=== PATIENT | female | born 1950 | race Caucasian/White ===

== ENCOUNTER → 2023-07-26 | Outpatient (CLI) | payer MEDICARE, BC, SELFPAY ==
--- NOTE | 2023-07-26 14:24 | RAD_ITS ---
INDICATION: PAIN EXAMINATION/TECHNIQUE: X-RAY - XR Pelvis 1 or 2 Views COMPARISON: No relevant prior comparison study available FINDINGS: PELVIC BONES: No displaced fracture, destructive or sclerotic lesions. Note that overlapping bowel shadows may however obscure fine detail. There are degenerative changes of the sacroiliac joints. No widening of the pubic symphysis. 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 There are extensive degenerative changes of the left hip characterized by joint space narrowing, subchondral sclerosis and marginal osteophytes. SOFT TISSUES: No soft tissue swelling or gas. RAD/Pelvis 1 or 2 Views IMPRESSION: Degenerative changes. Electronically Signed: Maria Elena Tyler MD at 9:59 EDT ,
[2023-07-26 17:35] LABS: Absolute Lymphocyte Count 1.72 X10^3/uL (0.83-4.51); Absolute Neutrophil Count 4.9 X10^3/uL (2.0-7.7); Basophil# 0.03 X10^3/uL; Basophil% 0.4 % (0-1); Eosinophils% 1.3 % (0-5); Hematocrit 39.9 % (37-47); Hemoglobin 12.5 g/dL (12.0-15.0); Lymphocyte # 1.72 X10^3/ul (0.83-4.51); Lymphocyte % 23.2 % (19-41); Mean Corp Hgb Conc 31.3 g/dL (32-36); Mean Corpuscular Hgb 29.3 pg (27.0-32.0); Mean Corpuscular Volume 93.4 fL (81-99); Mean Platelet Vol. 11.2 fl (6.2-12.0); Monocyte# 0.64 X10^3/uL; Monocyte% 8.6 % (0-10); NRBC Flagged by Analyzer 0 % (0-5); Neutrophil % 66.1 % (47-70); Platelet Count 246 K/mm3 (150-450); RBC Distribution Width CV 13.2 % (11.6-14.6); Red Blood Count 4.27 M/mm3 (4.2-5.4); White Blood Count 7.4 K/mm3 (4.4-11.0)
[2023-07-26 17:54] LABS: Erythrocyte Sedimentation Rate 24 mm/hr (0-30)
[2023-07-26 18:03] LABS: AST(SGOT) 18 U/L (15-37); Alanine Aminotransfer ALT/SGPT 24 U/L (13-56); Albumin, Serum 3.7 g/dL (3.2-5.0); Alkaline Phosphatase 97 U/L (45-117); Anion Gap 6 (5-15); BUN 35 mg/dL (7-18); BUN/Creat Ratio 35.8 RATIO (10-20); CRP < 2.90 mg/L (0.0-3.0); Calcium,Total 9.7 mg/dL (8.5-10.1); Chloride 109 mmol/L (98-107); Creatinine, Serum 0.98 mg/dL (0.55-1.02); EST Glomerular Filtration Rate 59 mL/min (>60); Est Glom Filt Rate - Afr Amer 71 mL/min (>60); Globulin 3.8 g/dL (2.2-4.2); Glucose 88 mg/dL (74-106); Potassium 3.7 mmol/L (3.5-5.1); Protein, Total 7.5 g/dL (6.4-8.2); Rheumatoid Factor < 10.0 IU/mL (<15); Sodium Level 142 mmol/L (136-145)
[2023-07-26 18:29] LABS: Hepatitis B Surface Antibody Non-Reactive; Hepatitis B Surface Antigen Non-Reactive (Nonreactive); Hepatitis C Antibody Non-Reactive (Nonreactive)
[2023-07-29 12:08] LABS: CCP IgG Antibodies 2 units (0-19); SJOGREN'S Anti-SS-A test < 0.2 AI (0.0-0.9); SJOGREN'S Anti-SS-B test < 0.2 AI (0.0-0.9)
== END | disposition home or self-care (01) ==
PROVIDERS: PCP Family Medicine; Referring Provider Internal Medicine Rheumatology; Visit Provider Internal Medicine Rheumatology
DX: M06.4 Inflammatory polyarthropathy (principal); M19.041 Primary osteoarthritis, right hand; M17.0 Bilateral primary osteoarthritis of knee; M65.332 Trigger finger, left middle finger
CPT/HCPCS: 36415; 72170; 80053; 85025; 85652; 86140; 86200; 86235; 86431; 86706; 86803; 87340

== ENCOUNTER → 2023-10-16 | Outpatient (CLI) | payer MEDICARE, BC, SELFPAY ==
[2023-10-16 17:58] LABS: Absolute Lymphocyte Count 1.82 X10^3/uL (0.83-4.51); Absolute Neutrophil Count 5.5 X10^3/uL (2.0-7.7); Basophil# 0.03 X10^3/uL; Basophil% 0.4 % (0-1); Eosinophil# 0.08 X10^3/uL; Hematocrit 36.9 % (37-47); Lymphocyte # 1.82 X10^3/ul (0.83-4.51); Lymphocyte % 21.9 % (19-41); Mean Corp Hgb Conc 32.5 g/dL (32-36); Mean Corpuscular Hgb 30.6 pg (27.0-32.0); Mean Corpuscular Volume 94.1 fL (81-99); Mean Platelet Vol. 10.8 fl (6.2-12.0); Monocyte# 0.83 X10^3/uL; NRBC Flagged by Analyzer 0 % (0-5); Neutrophil # 5.53 X10^3/uL (2.7-7.7); Neutrophil % 66.3 % (47-70); Platelet Count 256 K/mm3 (150-450); RBC Distribution Width CV 14.4 % (11.6-14.6); Red Blood Count 3.92 M/mm3 (4.2-5.4); White Blood Count 8.3 K/mm3 (4.4-11.0)
[2023-10-16 17:59] LABS: AST(SGOT) 26 U/L (15-37); Alanine Aminotransfer ALT/SGPT 29 U/L (13-56); Albumin, Serum 3.5 g/dL (3.2-5.0); Alkaline Phosphatase 96 U/L (45-117); Anion Gap 7 (5-15); BUN 44 mg/dL (7-18); BUN/Creat Ratio 35.8 RATIO (10-20); Calcium,Total 9.3 mg/dL (8.5-10.1); Chloride 106 mmol/L (98-107); Creatinine, Serum 1.23 mg/dL (0.55-1.02); EST Glomerular Filtration Rate 45 mL/min (>60); Est Glom Filt Rate - Afr Amer 55 mL/min (>60); Globulin 3.6 g/dL (2.2-4.2); Glucose 94 mg/dL (74-106); Protein, Total 7.1 g/dL (6.4-8.2); Sodium Level 139 mmol/L (136-145)
== END | disposition home or self-care (01) ==
PROVIDERS: PCP Family Medicine; Referring Provider Internal Medicine Rheumatology; Visit Provider Internal Medicine Rheumatology
DX: M06.4 Inflammatory polyarthropathy (principal); M17.0 Bilateral primary osteoarthritis of knee; M19.041 Primary osteoarthritis, right hand; Z79.899 Other long term (current) drug therapy
CPT/HCPCS: 36415; 80053; 85025

== ENCOUNTER → 2023-12-04 | Outpatient (CLI) | payer MEDICARE, BC, SELFPAY ==
[2023-12-04 17:40] LABS: Absolute Lymphocyte Count 1.68 X10^3/uL (0.83-4.51); Absolute Neutrophil Count 5.5 X10^3/uL (2.0-7.7); Basophil# 0.05 X10^3/uL; Basophil% 0.6 % (0-1); Eosinophil# 0.27 X10^3/uL; Eosinophils% 3.2 % (0-5); Hematocrit 37.2 % (37-47); Hemoglobin 11.7 g/dL (12.0-15.0); Lymphocyte # 1.68 X10^3/ul (0.83-4.51); Lymphocyte % 20.2 % (19-41); Mean Corp Hgb Conc 31.5 g/dL (32-36); Mean Corpuscular Hgb 29.8 pg (27.0-32.0); Mean Corpuscular Volume 94.9 fL (81-99); Monocyte# 0.82 X10^3/uL; Monocyte% 9.9 % (0-10); NRBC Flagged by Analyzer 0 % (0-5); Neutrophil # 5.46 X10^3/uL (2.7-7.7); Neutrophil % 65.6 % (47-70); Platelet Count 249 K/mm3 (150-450); RBC Distribution Width CV 13.6 % (11.6-14.6); RBC Distribution Width SD 47.7 fl (35.1-43.9); Red Blood Count 3.92 M/mm3 (4.2-5.4); White Blood Count 8.3 K/mm3 (4.4-11.0)
[2023-12-04 18:23] LABS: AST(SGOT) 20 U/L (15-37); Alanine Aminotransfer ALT/SGPT 23 U/L (13-56); Albumin, Serum 3.5 g/dL (3.2-5.0); Alkaline Phosphatase 128 U/L (45-117); Anion Gap 7 (5-15); BUN 33 mg/dL (7-18); BUN/Creat Ratio 34.7 RATIO (10-20); Calcium,Total 8.9 mg/dL (8.5-10.1); Chloride 109 mmol/L (98-107); Creatinine, Serum 0.95 mg/dL (0.55-1.02); EST Glomerular Filtration Rate 61 mL/min (>60); Est Glom Filt Rate - Afr Amer 74 mL/min (>60); Globulin 3.4 g/dL (2.2-4.2); Glucose 95 mg/dL (74-106); Potassium 4.2 mmol/L (3.5-5.1); Protein, Total 6.9 g/dL (6.4-8.2); Sodium Level 140 mmol/L (136-145)
--- OUTSIDE RECORDS SUMMARY | 2023-12-04 22:47 | XMS RPT_ITS | CCD ---
Author Name Unknown Address [id number] [place] [address] Organization [facility] Care Team Providers Care Statistics Professor Name Role Phone No, Physician Unavailable Unavailable Durairaj, Monse Unavailable Unavailable Durairaj, Monse Unavailable Unavailable Gardilcic, Stjepan Unavailable Unavailable Gardilcic, Stjepan Unavailable Unavailable Gardilcic, Stjepan Unavailable Unavailable Gardilcic, Stjepan Unavailable Unavailable Gardilcic, Stjepan Unavailable Unavailable Gardilcic, Stjepan Unavailable Unavailable Gardilcic, Stjepan Unavailable Unavailable Gardilcic, Stjepan Unavailable Unavailable Gardilcic, Stjepan Unavailable Unavailable Gardilcic, Stjepan Unavailable Unavailable Gardilcic, Stjepan Unavailable Unavailable Gardilcic, Stjepan Unavailable Unavailable Anjana Pride Unavailable Gardilcic, Stjepan Unavailable [phone] KelseyFerny N. Unavailable Sharan Padilla Unavailable Driss Olivia Unavailable Anjana Pride Primary Care Provider Gardilcic, Stjepan Unavailable Kelsey, Ferny N. Unavailable Sharan Padilla Unavailable Driss Olivia Unavailable Sharan Padilla Unavailable Derek Burns Unavailable Merline Howard Unavailable Unavailable HAYLIE GARCIA Attending Unavailable SHANNEN, ANJANA JARA Primary Care Unavailab le DEREK BURNS Referring Unavailab le STENFORREST, ANJANA JARA Primary Care Unavailab le Merline Howard Unavailable Unavailable Stenforrest, Anjana Unavailable Unavailable Stenforrest, Anjana Mason Unavailable Unavailable Hemant Laughlin Unavailable Unavailable Stencel, Anjana Unavailable Unavailable Unavailable Primary Care Provider Unavailabl e Shannen, Anjana Jara Primary Care Provider LaAnatolyclement Unavailable [phone] SongoneilSharanRaj Unavailable Driss Olivia Unavailable Derek Burns Unavailable Merline Howard Unavailable Unavailable Holly Jose Unavailable Unavailable Stenforrest, Anjana Mason Unavailable [phone] Unavailable Unavailable Anjana Pride Unavailable Winston Cain Unavailable Unavailable Juarez, Alejandra Fink Unavailable Jennifer Castillo Unavailable Unavailable Unavailable Unavailable SHANNEN, ANJANA JARA Primary Care Unavailab le STENCEL, ANJANA JARA Referring Unavailab le STENCEL, ANJANA JARA Attending Unavailab le STENCEL, ANJANA JARA Attending Unavailab le STENCEL, ANJANA JARA Primary Care Unavailab le STENCEL, ANJANA JARA Referring Unavailab le STENCEL, ANJANA JARA Primary Care Unavailab le Wood, MsRaj Castro Referring Unav ailable Wood, Ms. Alejandra Castro Attending Unav ailable Stencel, Anjana Jara Primary Care Unavailab le Kamenik, Ms. Winston Hodges Attending Ashley Dubois, Dr. Anjana Jordan Attending Unava ilable Stencel, Anjana Jara Primary Care Unavailab le Wood, Ms. Alejandra Castro Attending Unav ailable Stencel, Anjana Jara Primary Care Unavailab le Stencel, Anjana Jara Attending Unavailab le Stencel, Anjana Jara Referring Unavailab le Stencel, Anjana Jara Primary Care Unavailab le Stencel, Anjana Jara Primary Care Unavailab le JonathanJennifer Attending Unavailab le Vesta Vaughn Attending Unavailable Stencel, Anjana Jara Primary Care Unavailab le Kamenik, Ms. Winston Hodges Attending Ashley Pride, Anjana Jara Primary Care Unavailab le StenAnjana shah MD Primary Care Provider [phone] Anjana Pride MD Unavailable SHANNEN, ANJANA JARA Primary Care Unavailab le SYSTEM, PROVIDER NOT IN Referring Unavaila ble SYSTEM, PROVIDER NOT IN Attending Unavaila ble Stencel Anjana GOLDBERG Primary Care Provider La GOLDBERG, Rob Unavailable Ferny Cole MD Unavailable Sharan Padilla MD Unavailable Driss Olivia MD Unavailable [phone] Derek Burns MD Unavailable MILAGROS BRIAN Attending Unavailable STENCEL, ANJANA JARA Primary Care Unavailab le MILAGROS BRIAN Referring Unavailable STENCEL, ANJANA JARA Primary Care Unavailab le SYSTEM, PROVIDER NOT IN Referring Unavaila ble SYSTEM, PROVIDER NOT IN Attending Unavaila ble ANJANA PRIDE Primary Care Unavailable STENCEL ANJANA GOLDBERG Primary Care Physician ANJANA PRIDE Attending Unavailable STENCEL, ANJANA Mason Referring Unavailable STENCEL, ANJANA Mason Primary Care Unavailable STENCEL, ANJANA Mason Attending Unavailable STENCEL, ANJANA Mason Primary Care Unavailable STENCEL, ANJANA Mason Attending Unavailable STENCEL, ANJANA Mason Primary Care Unavailable STENCEL, ANJANA Mason Attending Unavailable STENCEL, ANJANA Mason Primary Care Unavailable STENCEL, ANJANA JARA Primary Care Unavailab le ZAHIDA DIEHL, SHAY Attending Unavailable MILAGROS BRIAN Referring Unavailable STENCEL, ANJANA JARA Primary Care Unavailab le MILAGROS BRIAN Admitting Unavailable STENCEL, ANJANA JARA Primary Care Unavailab le MILAGROS BRIAN Attending Unavailable STENCEL, ANJANA JARA Primary Care Unavailab le ZAHIDA DIEHL, SHAY Admitting Unavailable ZAHIDA JRRaj, SHAY Referring Unavailable STENCEL, ANJANA Mason Primary Care Unavailable LISE PEDRAZA Referring Unavailable IFTIKHAR HOLGUIN Referring Unavailable STENCEL, ANJANA Mason Primary Care Unavailable IFTIKHAR HOLGUIN Referring Unavailable STENCEL, ANJANA Mason Primary Care Unavailable MARIBEL HENSON Attending Unavailable IFTIKHAR HOLGUIN Referring Unavailable STENCEL, ANJANA Mason Primary Care Unavailable CHELSIEIFTIKHAR COLBY Referring Unavailable STENCEL, ANJANA Mason Primary Care Unavailable SHAY TEGAUE Referring Unavailable STENCEL, ANJANA Isabella Primary Care Unavailable CHELSIEIFTIKHAR Referring Unavailable STENCEL, ANJANA Isabella Primary Care Unavailable CHELSIEIFTIKHAR COLBY Referring Unavailable STENCEL, ANJANA Isabella Primary Care Unavailable IFTIKHAR HOLGUIN Referring Unavailable STENCEL, ANJANA Isabella Primary Care Unavailable CHELSIEIFTIKHAR Referring Unavailable STENCEL, ANJANA Isabella Primary Care Unavailable CHELSIE GOLDBERG, DR IFTIKHAR Naranjo Attending UnavailANJANA Kilpatrick MD Primary [facility] Unavailable CHELSIE GOLDBERG, DR IFTIKAHR Naranjo Attending Unavailab viral PRIDE MD, ANJANA Primary [facility] Unavailable Allergies Allergy Classification Reported Allergen(s) Allergy Type Date of Onset Reaction(s) Facility Angiotensin Converting Enzyme (DANIELLE) Inhibitors (2 sources) Lisinopril; Translations: [lisinopril] Drug Allergy Cough [facility] [place] [place] Work Phone: Macrolides (antibiotic) (4 sources) Clarithromycin; Translations: [Biaxin] Drug Allergy Hives [facility] [place] [place] Work Phone: NSAIDs (2 sources) meloxicam; Translations: [meloxicam] Drug Allergy Diarrhea [facility] [place] [place] Work Phone: Sulfamethoxazole / Trimethoprim (2 sources) Sulfamethoxazole / Trimethoprim; Translations: [Bactrim] [facility] [place] [place] Work Phone: Sulfonamides (antibiotic) (2 sources) Sulfonamides (Antibiotic); Translations: [Sulfa Drugs] Drug Allergy Hives [facility] [place] [place] Work Phone: (20 sources) lisinopril; Translations: [Unknown] Drug Allergy 07-01-20 18 Hives, Cough, Other (See Comments) [facility] Medications Current Medications Medication Drug Class(es) Dates Sig (Normalized) Sig (Original) amLODIPine 5 mg oral tablet (20 sources) Dihydropyridine Calcium Channel Aubrie Start: 06-20-2018 End: 04-18-2024 take 1 tablet by mouth once daily amLODIPine (Norvasc) 5 mg tablet Indications: Routine general medical examination at a health care facility Take 1 tablet (5 mg) by mouth once daily. 90 tablet 3 04/19/2023 04/18/2024 Active aspirin 325 mg delayed release oral tablet (20 sources) Platelet Aggregation Inhibitor, Nonsteroidal Anti-inflammatory Drug Start: 07-08-2019 End: 08-08-2019 take 1 tablet by mouth twice daily aspirin 325 MG EC tablet Take 1 (one) tablet (325 mg total) by mouth 2 (two) times a day . 60 tablet 0 07/09/2019 08/08/2019 Active Completed/Discontinued Medications Medication Drug Class(es) Dates Sig (Normalized) Sig (Original) acetaminophen 325 mg oral tablet (11 sources) Start: 07-09-2019 End: 07-19-2019 take 2 tablets by mouth every four hours acetaminophen (TYLENOL) 325 MG tablet Take 2 (two) tablets (650 mg total) by mouth every 4 (four) hours for 10 days . 60 tablet 0 07/09/2019 07/19/2019 Problems Active Problems Problem Classification Problem Date Documented Da te Episodic/Chronic Calculus of urinary tract (18 sources) History of calculus of kidney; Translations: [Personal history of urinary calculi] Episodic Chronic obstructive pulmonary disease and bronchiectasis (20 sources) Chronic obstructive lung disease; Translations: [Chronic airway obstruction, not elsewhere classified] Onset: 3 Resolved: 3 02-26-2023 Chronic Disorders of lipid metabolism (20 sources) Hyperlipidemia; Translations: [Other and unspecified hyperlipidemia] Onset: 9 06-12-2019 Chronic Esophageal disorders (20 sources) Gastroesophageal reflux disease without esophagitis; Translations: [Esophageal reflux] Onset: 3 02-26-2023 Chronic Essential hypertension (20 sources) Hypertensive disorder; Translations: [Unspecified essential hypertension] Onset: 9 06-12-2019 Chronic Genitourinary symptoms and ill-defined conditions (3 sources) Incontinence; Translations: [Mixed incontinence] Onset: 4 10-17-2023 Chronic Headache; including migraine (1 source) Headache; including migraine; Translations: [Headache, unspecified] Onset: 2 Immunizations and screening for infectious disease (15 sources) Patient encounter status; Translations: [Other specified vaccination] 11-06-2021 Episodic Osteoarthritis (20 sources) Osteoarthritis of hip; Translations: [Osteoarthritis] Onset: 9 Resolved: 3 Chronic Other acquired deformities (1 source) Spondylolisthesis, lumbar region; Translations: [Spondylolisthesis, lumbar region] Onset: 2 Episodic Other connective tissue disease (20 sources) History of total hip arthroplasty; Translations: [Presence of right artificial hip joint] Onset: 9 07-08-2019 Chronic Other connective tissue disease (2 sources) History of repair of hip joint; Translations: [Presence of left artificial hip joint] Onset: 4 10-31-2023 Chronic Other connective tissue disease (2 sources) Presence of left artificial hip joint; Translations: [Presence of left artificial hip joint] Onset: 4 Chronic Other connective tissue disease (1 source) Pain of left calf; Translations: [Pain in left lower leg] 11-20-2023 Episodic Other connective tissue disease (4 sources) Pain of left lower leg; Translations: [Pain in left lower leg] Onset: 4 11-20-2023 Episodic Other connective tissue disease (3 sources) Pain in left lower limb; Translations: [Pain in left leg] Onset: 4 11-20-2023 Episodic Other connective tissue disease (2 sources) Pain in left foot; Translations: [Pain in left foot] Onset: 4 Episodic Other connective tissue disease (2 sources) Pain in left lower leg; Translations: [Pain in left lower leg] Onset: 4 Episodic Other connective tissue disease (1 source) Pain in left leg; Translations: [Pain in left leg] Onset: 4 Episodic Other diseases of kidney and ureters (1 source) Acquired renal cystic disease; Translations: [Acquired cyst of kidney] Episodic Other gastrointestinal disorders (1 source) Adrenal mass Chronic Other nervous system disorders (1 source) Spinal cord disease; Translations: [Myelopathy] Chronic Other nervous system disorders (3 sources) Other chronic pain; Translations: [Other chronic pain] Onset: 2 Chronic Other non-traumatic joint disorders (1 source) Pain in left knee; Translations: [Pain in left knee] Onset: 12-31-2022 Episodic Other non-traumatic joint disorders (20 sources) Arthritis of right hip; Translations: [Arthritis of right hip] Onset: 9 05-04-2019 Other nutritional; endocrine; and metabolic disorders (11 sources) Body mass index 30+ - obesity; Translations: [Body Mass Index 36.0-36.9, adult] Chronic Other nutritional; endocrine; and metabolic disorders (11 sources) Obesity; Translations: [Obesity hypoventilation syndrome] Chronic Other upper respiratory disease (4 sources) Pain in throat 11-06-2021 Episodic Past or Other Problems Problem Classification Problem Date Documented Da te Episodic/Chronic Allergic reactions (20 sources) Eczema; Translations: [Contact dermatitis and other eczema, unspecified cause] Onset: 12-31-2022 12-31-2022 Episodic Inflammation; infection of eye (except that caused by tuberculosis or sexually transmitteddisease) (2 sources) Acute conjunctivitis; Translations: [Acute conjunctivitis, unspecified] Onset: 11-20-2021 11-20-2021 Episodic Joint disorders and dislocations; trauma-related (1 source) Subluxation of L4/L5 lumbar vertebra, initial encounter; Translations: [Subluxation of L4/L5 lumbar vertebra, initial encounter] Onset: 12-01-2021 Episodic Malaise and fatigue (1 source) Other malaise; Translations: [Other malaise] Onset: 11-06-2021 Episodic Other eye disorders (1 source) Other specified disorders of eye and adnexa; Translations: [Other specified disorders of eye and adnexa] Onset: 11-20-2021 Episodic Other gastrointestinal disorders (20 sources) Mass of pancreas; Translations: [Pancreatic mass] Onset: 08-05-2018 08-05-2018 Episodic Other non-traumatic joint disorders (15 sources) Pain in left knee; Translations: [Left knee pain, unspecified chronicity] Onset: 12-01-2021 Episodic Other upper respiratory disease (1 source) Nasal congestion; Translations: [Nasal congestion] Onset: 03-14-2022 Episodic Pancreatic disorders (20 sources) Cyst of pancreas; Translations: [Cyst and pseudocyst of pancreas] Onset: 08-05-2018 12-31-2022 Episodic Spondylosis; intervertebral disc disorders; other back problems (14 sources) Chronic low back pain; Translations: [Lumbago] Onset: 08-01-2022 12-31-2022 Episodic Unclassified (1 source) Preprocedural examination done Unclassified (4 sources) Colon cancer screening declined; Translations: [Colon cancer screening declined] Unclassified (5 sources) Onset: 02-26-2023 02-26-2023 Unclassified (1 source) Finding of menstrual bleeding; Translations: [Menstruation] Results Test Name Value Interpretation Reference Range Facil ity Vital Signs Date Time Vital Sign Value Performing Clinician Faci lity 11-20-2023 11:16-0500 Body temperature 98.71 [degF] Shay Teague Jr., DPM Work Phone: [facility] 11-20-2023 11:16-0500 Diastolic blood pressure 62 mm[Hg] Shay Teague Jr., DPM Work Phone: [facility] 11-20-2023 11:16-0500 Heart rate 69 /min Shay Teague Jr., DPM Work Phone: [facility] 11-20-2023 11:16-0500 Systolic blood pressure 137 mm[Hg] Shay Teague Jr., DPM Work Phone: [facility] 10-29-2023 11:45-0500 Diastolic Blood Pressure Non-Invasive 57 mm[Hg] DR IFTIKHAR HOLGUIN MD [facility] 10-29-2023 11:45-0500 Heart rate 67 /min DR IFTIKHAR HOLGUIN MD [facility] 10-29-2023 11:45-0500 Systolic Blood Pressure Non-Invasive 123 mm[Hg] DR IFTIKHAR HOLGUIN MD [facility] 10-29-2023 10:45-0500 Diastolic Blood Pressure Non-Invasive 54 mm[Hg] DR IFTIKHAR HOLGUIN MD [facility] 10-29-2023 10:45-0500 Heart rate 72 /min DR IFTIKHAR HOLGUIN MD [facility] 10-29-2023 10:45-0500 Systolic Blood Pressure Non-Invasive 78 mm[Hg] DR IFTIKHAR HOLGUIN MD [facility] 10-29-2023 10:00-0500 Diastolic Blood Pressure Non-Invasive 67 mm[Hg] DR IFTIKHAR HOLGUIN MD [facility] 10-29-2023 10:00-0500 Heart rate 74 /min DR IFTIKHAR HOLGUIN MD [facility] 10-29-2023 10:00-0500 Respiratory rate 20 /min DR IFTIKHAR HOLGUIN MD [facility] 10-29-2023 09:45-0500 Respiratory rate 17 /min DR IFTIKHAR HOLGUIN MD [facility] 10-29-2023 09:30-0500 Respiratory rate 16 /min DR IFTIKHAR HOLGUIN MD [facility] 10-29-2023 09:05-0500 Body temperature 96.62 [degF] DR IFTIKHAR HOLGUIN MD [facility] 10-29-2023 08:55-0500 Respiratory Rate - Anes 18 br/min DR IFTIKHAR HOLGUIN MD [facility] 10-29-2023 08:50-0500 Respiratory Rate - Anes 16 br/min DR IFTIKHAR HOLGUIN MD [facility] 10-29-2023 08:45-0500 Respiratory Rate - Anes 16 br/min DR IFTIKHAR HOLGUIN MD [facility] 10-29-2023 06:20-0500 Body weight 20.43 kg/m2 DR IFTIKHAR HOLGUIN MD [facility] 10-29-2023 05:55-0500 Body height [address] IFTIKHAR HOLGUIN MD [facility] 10-29-2023 05:55-0500 Body temperature 96.98 [degF] DR IFTIKHAR HOLGUIN MD [facility] 10-29-2023 05:55-0500 Body weight 52.[address] IFTIKHAR HOLGUIN MD [facility] 10-29-2023 05:55-0500 Heart rate 79 /min DR IFTIKHAR HOLGUIN MD [facility] 10-17-2023 09:11-0500 Body height 160 cm Anjana Pride MD Work Phone: [facility] 10-17-2023 09:11-0500 Body mass index (BMI) [Ratio] 35.5 kg/m2 Anjana Pride MD Work Phone: [facility] 10-17-2023 09:11-0500 Body weight 90.9 kg Anjana Pride MD Work Phone: [facility] 10-17-2023 09:11-0500 Diastolic blood pressure 60 mm[Hg] Anjana Pride MD Work Phone: [facility] 10-17-2023 09:11-0500 Heart rate 67 /min Anjana Pride MD Work Phone: [facility] 10-17-2023 09:11-0500 SaO2% (BldA) [Mass fraction] 98 % Anjana Pride MD Work Phone: [facility] 10-17-2023 09:11-0500 Systolic blood pressure 132 mm[Hg] Anjana Pride MD Work Phone: [facility] 10-08-2023 11:43-0500 Body height [address] IFTIKHAR HOLGUIN MD [facility] 10-08-2023 11:43-0500 Body weight 90.[address] IFTIKHAR HOLGUIN MD [facility] 09-09-2023 13:31-0500 Body height 160 cm Anjana Pride MD Work Phone: [facility] 09-09-2023 13:31-0500 Body mass index (BMI) [Ratio] 36.01 kg/m2 Anjana Pride MD Work Phone: [facility] 09-09-2023 13:31-0500 Body weight 92.22 kg Anjana Pride MD Work Phone: [facility] 09-09-2023 13:31-0500 Diastolic blood pressure 60 mm[Hg] Anjana Pride MD Work Phone: [facility] 09-09-2023 13:31-0500 Heart rate 98 /min Anjana Pride MD Work Phone: [facility] 09-09-2023 13:31-0500 SaO2% (BldA) [Mass fraction] 98 % Anjana Pride MD Work Phone: [facility] 09-09-2023 13:31-0500 Systolic blood pressure 128 mm[Hg] Anjana Pride MD Work Phone: [facility] 09-04-2023 09:16-0500 Body height 160 cm Milagros Brian CNP Work Phone: [facility] 09-04-2023 09:16-0500 Body mass index (BMI) [Ratio] 35.43 kg/m2 Milagros Brian CNP Work Phone: [facility] 09-04-2023 09:16-0500 Body weight 90.72 kg Milagros Brina CNP Work Phone: [facility] 06-14-2023 14:08-0400 Body height 160.02 cm Anjana Calderoncel Work Phone: [place] [address] [place] Work Phone: 06-14-2023 14:08-0400 Body mass index (BMI) [Ratio] 36.05 kg/m2 Anjana Calderoncel Work Phone: [place] [address] [place] Work Phone: 06-14-2023 14:08-0400 Body surface area Derived from formula 1.95 m2 Anjana Calderoncel Work Phone: [address] Work Phone: 06-14-2023 14:08-0400 Body weight 92.3 kg Anjana Pride Work Phone: [address] Work Phone: 06-14-2023 14:08-0400 Diastolic blood pressure 74 mm[Hg] Anjana Calderoncel Work Phone: [place] [address] [place] Work Phone: 06-14-2023 14:08-0400 Systolic blood pressure 158 mm[Hg] Anjana Calderoncel Work Phone: [place] [address] [place] Work Phone: 02-26-2023 13:40-0400 Body height 160 cm Anjana Pride MD Work Phone: [facility] 02-26-2023 13:40-0400 Body mass index (BMI) [Ratio] 35.75 kg/m2 Anjana Pride MD Work Phone: [facility] 02-26-2023 13:40-0400 Body weight 91.54 kg Anjana Pride MD Work Phone: [facility] 02-26-2023 13:40-0400 Diastolic blood pressure 60 mm[Hg] Anjana Pride MD Work Phone: [facility] 02-26-2023 13:40-0400 Heart rate 63 /min Anjana Pride MD Work Phone: [facility] 02-26-2023 13:40-0400 SaO2% (BldA) [Mass fraction] 96 % Anjana Pride MD Work Phone: [facility] 02-26-2023 13:40-0400 Systolic blood pressure 128 mm[Hg] Anjana Pride MD Work Phone: [facility] 08-27-2022 13:55-0500 Body height 160.02 cm Anjana Pride Work Phone: [facility] Work Phone: 08-27-2022 13:55-0500 Body mass index (BMI) [Ratio] 36.69 kg/m2 Anjana Pride Work Phone: [facility] Work Phone: 08-27-2022 13:55-0500 Body surface area Derived from formula 1.96 m2 Anjana Pride Work Phone: [facility] Work Phone: 08-27-2022 13:55-0500 Body weight 93.95 kg Anjana Isabella Pride Work Phone: [facility] Work Phone: 08-27-2022 13:55-0500 Diastolic blood pressure 66 mm[Hg] Anjana Pride Work Phone: [facility] Work Phone: 08-27-2022 13:55-0500 Heart rate 64 /min Anjana Pride Work Phone: [facility] Work Phone: 08-27-2022 13:55-0500 SaO2% (BldA) [Mass fraction] 98 % Anjana Pride Work Phone: [facility] Work Phone: 08-27-2022 13:55-0500 Systolic blood pressure 132 mm[Hg] Anjana Calderoncel Work Phone: [facility] Work Phone: 08-10-2022 17:02-0500 Body height 159 cm Anjana Calderoncel Other Phone: [facility] 08-10-2022 17:02-0500 Body temperature 97.34 [degF] Anjana Calderoncel Other Phone: [facility] 08-10-2022 17:02-0500 Diastolic blood pressure 75 mm[Hg] Anjana Calderoncel Other Phone: [facility] 08-10-2022 17:02-0500 Heart rate 61 /min Anjana Calderoncel Other Phone: [facility] 08-10-2022 17:02-0500 Respiratory rate 18 /min Anjana Calderoncel Other Phone: [facility] 08-10-2022 17:02-0500 SaO2% (BldA) [Mass fraction] 95 % Anjana Calderoncel Other Phone: [facility] 08-10-2022 17:02-0500 Systolic blood pressure 123 mm[Hg] Anjana Calderoncel Other Phone: [facility] 02-22-2022 14:17-0400 Body height 160.02 cm Anjana Pride Work Phone: [facility] [employer] [facility] [facility] Work Phone: 02-22-2022 14:17-0400 Body mass index (BMI) [Ratio] 37.29 kg/m2 Anjana Calderoncel Work Phone: [facility] [employer] [facility] Work Phone: 02-22-2022 14:17-0400 Body surface area Derived from formula 1.98 m2 Anjana Calderoncel Work Phone: [facility] [employer] Work Phone: 02-22-2022 14:17-0400 Body weight 95.48 kg Anjana Mason Stencel Work Phone: [facility] Work Phone: 02-22-2022 14:17-0400 Diastolic blood pressure 68 mm[Hg] Anjana Mason Stencel Work Phone: [facility] Work Phone: 02-22-2022 14:17-0400 Heart rate 59 /min Anjana Mason Stencel Work Phone: [facility] Work Phone: 02-22-2022 14:17-0400 SaO2% (BldA) [Mass fraction] 95 % Anjana Mason Stencel Work Phone: [facility] Work Phone: 02-22-2022 14:17-0400 Systolic blood pressure 140 mm[Hg] Anjana Mason Stencel Work Phone: [facility] Work Phone: 11-20-2021 16:25-0500 Body height 161.2 cm Anjana Stencel Other Phone: [facility] 11-20-2021 16:25-0500 Body temperature 97.16 [degF] Anjana Stencel Other Phone: [facility] 11-20-2021 16:25-0500 Diastolic blood pressure 70 mm[Hg] Anjana Stencel Other Phone: [facility] 11-20-2021 16:25-0500 Heart rate 70 /min Anjana Stencel Other Phone: [facility] 11-20-2021 16:25-0500 SaO2% (BldA) [Mass fraction] 96 % Anjana Stencel Other Phone: [facility] 11-20-2021 16:25-0500 Systolic blood pressure 139 mm[Hg] Anjana Stencel Other Phone: [facility] 11-16-2021 11:02-0500 Body height 160.02 cm Anjana Calderoncel Work Phone: [facility] Work Phone: 11-16-2021 11:02-0500 Body mass index (BMI) [Ratio] 36.69 kg/m2 Anjana Calderoncel Work Phone: [facility] Work Phone: 11-16-2021 11:02-0500 Body surface area Derived from formula 1.96 m2 Anjana Calderoncel Work Phone: [facility] [facility] Work Phone: 11-16-2021 11:02-0500 Body weight 93.95 kg Anjana Pride Work Phone: [facility] Work Phone: 11-16-2021 11:02-0500 Diastolic blood pressure 68 mm[Hg] Anjana Calderoncel Work Phone: [facility] Work Phone: 11-16-2021 11:02-0500 Heart rate 63 /min Anjana Calderoncel Work Phone: [facility] Work Phone: 11-16-2021 11:02-0500 SaO2% (BldA) [Mass fraction] 97 % Anjana Calderoncel Work Phone: [facility] Work Phone: 11-16-2021 11:02-0500 Systolic blood pressure 164 mm[Hg] Anjana Calderoncel Work Phone: [facility] Work Phone: 11-06-2021 16:44-0500 Body height 161.2 cm Anjana Pride Other Phone: [facility] 11-06-2021 16:44-0500 Body temperature 97.7 [degF] Anjana Calderoncel Other Phone: [facility] 11-06-2021 16:44-0500 Diastolic blood pressure 61 mm[Hg] Anjana Calderoncel Other Phone: [facility] 11-06-2021 16:44-0500 Heart rate 60 /min Anjana Calderoncel Other Phone: [facility] 11-06-2021 16:44-0500 SaO2% (BldA) [Mass fraction] 96 % Anjana Calderoncel Other Phone: [facility] 11-06-2021 16:44-0500 Systolic blood pressure 138 mm[Hg] Anjana Calderoncel Other Phone: [facility] 08-08-2021 11:27-0500 Body height 160.02 cm Anjaan Calderoncel Work Phone: [facility] Work Phone: 08-08-2021 11:27-0500 Body mass index (BMI) [Ratio] 36.76 kg/m2 Anjana Calderoncel Work Phone: [facility] Work Phone: 08-08-2021 11:27-0500 Body surface area Derived from formula 1.96 m2 Anjana Calderoncel Work Phone: [facility] Work Phone: 08-08-2021 11:27-0500 Body temperature 96.9 [degF] Anjana Calderoncel Work Phone: [facility] Work Phone: 08-08-2021 11:27-0500 Body weight 94.12 kg Anjana Calderoncel Work Phone: [facility] Work Phone: 08-08-2021 11:27-0500 Diastolic blood pressure 68 mm[Hg] Anjana Mason Stencel Work Phone: [facility] Work Phone: 08-08-2021 11:27-0500 Heart rate 60 /min Anjana Pride Work Phone: [facility] Work Phone: 08-08-2021 11:27-0500 SaO2% (BldA) [Mass fraction] 97 % Anjana Pride Work Phone: [facility] Work Phone: 08-08-2021 11:27-0500 Systolic blood pressure 140 mm[Hg] Anjana Pride Work Phone: [facility] Work Phone: 02-05-2020 12:19-0400 BMI (Body Mass Index) 35.43 kg/m2 Hemant Laughlin [facility] Work Phone: 02-05-2020 12:19-0400 Body weight 90.72 kg Hemant Laughlin [facility] Work Phone: 02-05-2020 12:19-0400 BP Diastolic 71 mm[Hg] Hemant Laughlin [facility] Work Phone: 02-05-2020 12:19-0400 BP Systolic 142 mm[Hg] Hemant Laughlin [facility] Work Phone: 02-05-2020 12:19-0400 BSA (Body Surface Area) 1.93 m2 Hemant Laughlin [facility] Work Phone: 02-05-2020 12:19-0400 Height 160.02 cm Hemant Laughlin [facility] Work Phone: 08-07-2019 13:46-0500 BMI (Body Mass Index) 38.09 kg/m2 Anjana Pride [facility] Work Phone: 08-07-2019 13:46-0500 Body weight 97.52 kg Anjana Pride [facility] Work Phone: 08-07-2019 13:46-0500 BP Diastolic 52 mm[Hg] Anjana Pride [facility] Work Phone: 08-07-2019 13:46-0500 BP Systolic 134 mm[Hg] Anjana Pride [facility] Work Phone: 08-07-2019 13:46-0500 BSA (Body Surface Area) 1.99 m2 Anjana Pride [facility] Work Phone: 08-07-2019 13:46-0500 Height 160.02 cm [facility] Work Phone: 08-07-2019 13:46-0500 Pulse (Heart Rate) 58 /min [facility] Work Phone: 08-07-2019 13:46-0500 Pulse Oximetry 97 % [facility] Pride [facility] Work Phone: 07-27-2019 15:00-0500 BMI (Body Mass Index) 37.2 kg/m2 Derek Burns [facility] 07-27-2019 15:00-0500 Body weight 95.25 kg Derek Burns [facility] 07-27-2019 15:00-0500 Height 160 cm Derek Burns [facility] 07-24-2019 14:30-0400 Body Temperature 98.01 [degF] Mitzi Plaza [facility] 07-24-2019 14:30-0400 BP Diastolic 52 mm[Hg] Mitzi Plaza [facility] 07-24-2019 14:30-0400 BP Systolic 110 mm[Hg] M[facility]i [facility] 07-24-2019 14:30-0400 Pulse (Heart Rate) 72 /min [facility] 07-24-2019 14:30-0400 Pulse Oximetry 95 % [facility] 07-24-2019 14:30-0400 Respiratory Rate 18 /min [facility] 07-21-2019 12:50-0400 Body Temperature 96.91 [degF] Becky Gates [facility] 07-21-2019 12:50-0400 BP Diastolic 58 mm[Hg] Becky Gates [facility] 07-21-2019 12:50-0400 BP Systolic 108 mm[Hg] Beckymarcella Gates [facility] 07-21-2019 12:50-0400 Pulse (Heart Rate) 63 /min Beckymarcella Gates [facility] 07-21-2019 12:50-0400 Pulse Oximetry 98 % Beckymarcella Gates [facility] 07-21-2019 12:50-0400 Respiratory Rate 14 /min [facility] 11:59-0400 Body Temperature 97.9 [degF] [facility] 07-21-2019 11:59-0400 BP Diastolic 58 mm[Hg] [facility] 07-21-2019 11:59-0400 BP Systolic 120 mm[Hg] [facility] 07-21-2019 11:59-0400 Pulse (Heart Rate) 53 /min [facility] 07-21-2019 11:59-0400 Pulse Oximetry 97 % [facility] 07-20-2019 09:41-0400 Body Temperature 97.81 [degF] [facility] 07-20-2019 09:41-0400 BP Diastolic 77 mm[Hg] [facility] 07-20-2019 09:41-0400 BP Systolic 133 mm[Hg] [facility] 07-20-2019 09:41-0400 Pulse (Heart Rate) 78 /min [facility] 07-20-2019 09:41-0400 Pulse Oximetry 98 % [facility] 07-16-2019 10:03-0400 Body Temperature 97.5 [degF] [facility] 07-16-2019 10:03-0400 BP Diastolic 67 mm[Hg] [facility] 07-16-2019 10:03-0400 BP Systolic 132 mm[Hg] [facility] 07-16-2019 10:03-0400 Pulse (Heart Rate) 68 /min [facility] 07-16-2019 10:03-0400 Pulse Oximetry 98 % [facility] 07-15-2019 09:07-0400 Body Temperature 97.5 [degF] [facility] 07-15-2019 09:040 BP Diastolic 68 mm[Hg] [facility] Encounters Encounter Date Encounter Type Care Provider Facility Start: 12-02-2023 End: 12-02-2023 ambulatory IFTIKHAR GARCIA [facility] Start: 11-29-2023 End: 11-29-2023 ambulatory IFTIKHAR GARCIA [facility] Start: 11-27-2023 End: [facility] Start: 11-22-2023 End: 11-22-2023 ambulatory IFTIKHAR [facility] Start: 11-20-2023 End: 11-21-2023 ambulatory SHAY TEAGUE [facility] Start: 11-20-2023 End: 11-20-2023 Subsequent hospital visit by physician Armando Solis 1 [facility] Procedures Date Procedure Procedure Detail Performing Clinician Start: 12-02-2023 FOLLOW UP IN PHYSICA L THERAPY ANJANA STENCEL Start: 11-29-2023 FOLLOW UP IN PHYSICA L THERAPY ANJANA STENCEL Start: 11-27-2023 FOLLOW UP IN PHYSICA L THERAPY ANJANA STENCEL Start: 11-22-2023 FOLLOW UP IN PHYSICA L THERAPY ANJANA STENCEL Start: 11-20-2023 VASC US LOWER EXTREM ITY VENOUS DUPLEX LEFT ANJANA STENCEL Start: 11-20-2023 Dup-scan xtr veins unilateral/limited study Shay Teague DPM Work Phone: Start: 11-15-2023 FOLLOW UP IN PHYSICA L THERAPY ANJANA STENCEL Start: 11-13-2023 FOLLOW UP IN PHYSICA L THERAPY ANJANA STENCEL Start: 11-07-2023 FOLLOW UP IN PHYSICA L THERAPY ANJANA STENCEL Start: 11-06-2023 FOLLOW UP IN PHYSICA L THERAPY ANJANA STENCEL Start: 10-31-2023 AMB REFERRAL TO PHYS ICAL THERAPY ANJANA STENCEL Start: 09-09-2023 FOLLOW UP IN FAMILY MEDICINE ANJANA STENCEL Start: 09-04-2023 CBC panel - Blood by Automated count ANJANA CALDERONCEL Start: 09-04-2023 Comprehensive metabo lic 2000 panel - Serum or Plasma ANJANA PRIDE Start: 09-04-2023 Lipid panel ANJANA CARBALLO Start: 09-04-2023 Lipid 1996 panel - S kimi or Plasma Anjana Pride MD Work Phone: Start: 09-02-2023 Mammography Shay Mason shelbi Diehl, DPM Work Phone: Start: 10-01-2022 Mammography Anjana Carballo MD Work Phone: Start: 08-23-2022 Lipid 1996 panel - S kimi or Plasma Anjana Pride MD Work Phone: Start: 08-09-2020 Colonoscopy Anjana Carballo MD Work Phone: Start: 02-05-2020 CBC W Auto Different ial panel - Blood Tylerjaci Truman Start: 02-05-2020 Comprehensive metabo lic 2000 panel Hemant Laughlin Start: 02-05-2020 Lipid panel Lobito Laughlin Start: 08-07-2019 CBC W Auto Different ial panel - Blood Anjana Pride Start: 08-07-2019 Comprehensive metabo lic 2000 panel Anjana Pride Start: 08-07-2019 Lipid panel Anjana Carballo Start: 07-13-2019 Adult depression scr eening assessment Milagros Brian CNP Work Phone: Start: 07-09-2019 Basic metabolic 2000 panel - Serum or Plasma Derek Burns Work Phone: Start: 07-09-2019 Hemoglobin and Hemat ocrit panel - Blood Derek Burns Work Phone: Start: 07-08-2019 Radex hip unilateral with pelvis 2-3 views Derek Burns Work Phone: Start: 07-08-2019 End: 07-08-2019 ARTHROPLASTY HIP ROBOTIC Derek yost Work Phone: Start: 06-09-2019 Ct lower extremity w /o contrast material Derek Burns Work Phone: Start: 02-26-2019 Radex hip unilateral with pelvis 2-3 views Driss Olivia Work Phone: Start: 02-25-2019 Ultrasonography of retroperitoneum Rob Tovar Work Phone: Start: 09-23-[address] IFTIKHAR HOLGUIN MD Plan of Treatment Date Care Activity Detail Author Start: 08-09-2030 Screening for malignant neoplasm of colon [facility] Start: 09-04-2028 Lipid panel Lipid Panel [facility] Start: 08-23-2027 Lipid panel Lipid Panel [facility] Start: 09-02-2024 Screening for malignant neoplasm of breast Mammogram [facility] Start: 03-12-2024 End: 03-12-2024 Patient encounter procedure 03/12/2024 2:00 PM EDT Office Visit [facility] [address] [place] [phone] Anjana Pride MD [address] [place] [address] [facility] Start: 11-29-2023 End: 11-29-2023 Patient encounter procedure 11/29/2023 2:30 PM EST Office Visit [facility] [address] [place] [phone] Shay Teague Jr., DPM [address] [place] [id number] [facility] Start: 11-29-2023 End: 11-29-2023 ambulatory 11/29/2023 12:45 PM EST Treatment [facility] [address] [place] [phone] Yousif Escobar PT [address] [facility] [place] [address] [facility] Start: 11-27-2023 End: 11-27-2023 ambulatory 11/27/2023 11:30 AM EST Treatment [facility] [address] [place] [phone] Lizy Stoddard, SCOURER [address] [facility] [place] [phone] [facility] Start: 11-22-2023 End: 11-22-2023 ambulatory 11/22/2023 12:30 PM EST Treatment [address] [phone] Maribel Henson, SCOURER [address] [facility] [place] [phone] [facility] Start: 10-01-2023 Screening for malignant neoplasm of breast Mammogram [facility] Start: 05-24-2023 COVID-19 Vaccine () COVID-19 Vaccine () [facility] Start: 05-24-2023 Influenza vaccination [facility] Start: 02-26-2023 EPV, Provider: Anjana Pride, Status: Pen, Time: 1:20 PM EPV, Provider: Anjana Pride, Status: Pen, Time: 1:20 PM [facility] Work Phone: Start: 02-26-2023 End: 02-27-2024 CBC panel - Blood by Automated count CBC Lab Routine Mixed hyperlipidemia Expected: 02/26/2023 (Approximate), Expires: 02/27/2024 [facility] Service Area Work Phone: Immunizations Immunization Date Immunization Notes Care Provider Fa emily 11-16-2021 pneumococcal conjuga te vaccine, 13 valent; Translations: [Prevnar 13 Intramuscular Suspension] Anjana Pride Work Phone: [facility] Work Phone: Payers Date Payer Category Payer Unknown [place] BCBS OUT OF STATE [facility] xxxxxxxxxxxx 2013-Present xxxxxxxxxxxx [id number] 2013 Unknown [id number] 2013 Unknown [place] BCBS OUT OF STATE [facility] [id number] 2013-Present [id number] 2013 Unknown [id number] 2013 Medicare MEDICARE MEDICAR E PART A & B xxxxxxxxxxx 2013-Present [place] xxxxxxxxxxx [id number] 2013 Medicare [id number] 2013 Medicare MEDICARE MEDICAR E PART A & B [id number] 2013-Present [place] [id number] .[id number] 2013 Medicare [id number] 1.13.647.2.7.3 .[id number] 2013 Unknown 1948 Unknown [id number] 2.16.840.1.676110.3.579.2.903 1948 Unknown [id number] 2.16.840.1.586667.3.579.2.903 1948 Unknown [id number] 2.16.840.1.721908.3.579.2.356 1948 Unknown [id number] 2.16.840.1.285823.3.579.2.356 1948 Unknown [id number] 2.16.840.1.988179.3.579.2.356 1948 Unknown [id number] 2.16.840.1.451539.3.579.2.106 9 1948 Unknown [id number] 2.16.840.1.903547.3.579.2.106 9 1948 Unknown [id number] 2.16.840.1.191426.3.579.2.106 9 1948 Unknown [id number] 2.16.840.1.513298.3.579.2.106 9 1948 Unknown [id number] 2.16.840.1.622852.3.579.2.106 9 1948 Unknown [id number] 2.16.840.1.233330.3.579.2.106 9 1948 Unknown [id number] 2.16.840.1.499683.3.579.2.106 9 1948 Unknown [id number] 2.16.840.1.289672.3.579.2.903 1948 Unknown [id number] 2.16.840.1.277737.3.579.2.900 1948 Unknown [id number] 2.16.840.1.303064.3.579.2.900 1948 Unknown [id number] 2.16.840.1.857813.3.579.2.124 5 1948 Unknown [id number] 2.16.840.1.891314.3.579.2.124 4 1948 Unknown [id number] 2.16.840.1.978307.3.579.2.124 4 1948 Unknown [id number] 2.16.840.1.426795.3.579.2.124 4 1948 Unknown [id number] 2.16.840.1.807913.3.579.2.124 4 1948 Unknown [id number] 2.16.840.1.275311.3.579.2.903 1948 Unknown [id number] 2.16.840.1.943835.3.579.2.903 1948 Unknown [id number] 2.16.840.1.706610.3.579.2.903 1948 Unknown [id number] 2.16.840.1.737990.3.579.2.903 1948 Unknown [id number] 2.16.840.1.346187.3.579.2.124 3 1948 Unknown [id number] 2.16.840.1.470948.3.579.2.124 3 1948 Unknown [id number] 2.16.840.1.641924.3.579.2.124 3 1948 Unknown [id number] 2.16.840.1.055630.3.579.2.124 3 1948 Unknown [id number] 2.16.840.1.857488.3.579.2.124 3 1948 Unknown [id number] 2.16.840.1.444954.3.579.2.124 3 1948 Unknown [id number] 2..840.1.169115.3.579.2.124 3 1948 Unknown [id number] 2.16.840.1.038950.3.579.2.124 3 1948 Unknown [id number] 2.16.840.1.571162.3.579.2.124 3 1948 Unknown [id number] 2.16.840.1.088476.3.579.2.124 3 1948 Unknown [id number] 2.16.840.1.330260.3.579.2.627 1948 Unknown [id number] 2.16.840.1.369073.3.579.2.627 Medicare [id number] Social History Date Type Detail Facility Tobacco smoking stat [facility] Unknown if ever smoked [facility] Start: 1950 Sex Assigned At Not on file [facility] Start: 07-01-2018 End: 12-31-2022 Tobacco smoking status NHIS Never smoker [facility] Start: 05-15-2019 End: 11-20-2023 Alcohol intake Current non-drinker of alcohol (finding) [facility] Start: 07-16-2020 End: 12-31-2022 Tobacco use and exposure Never used [facility] Start: 12-31-2022 End: 02-26-2023 No alcohol use No alcohol use [facility] Work Phone: Tobacco smoking consumption unknown [facility] Start: 02-26-2023 Alcohol intake Defer [facility] Work Phone: Start: 12-31-2022 End: 02-26-2023 Tobacco use panel [facility] Work Phone: Start: 02-16-2023 End: 11-20-2023 Exposure to SARS-CoV-2 (event) Not sure [facility] PHQ-2 Score 0 [facility] Start: 08-20-2018 Gender identity Identifies as female gender (finding) [facility] Start: 08-20-2018 Sexual orientation Heterosexual (finding) [facility] Start: 09-09-2023 End: 10-17-2023 Alcohol intake Lifetime non-drinker (finding) [facility] Work Phone: Sex Assigned At Female [facility] Medical Equipment Procedure Code Equipment Code Equipment Origin al Text Equipment Identifier Dates Cup 46mm Cluster Vargas Trident Psl - [id number], [id number] FDA Start: 07-08-2019 Insert 32mm Szd 10deg Trident X3 - [id number], [id number] FDA Start: 07-08-2019 Stem 127deg Sz2 Fem Accolade Ii - [id number] , [id number] FDA Start: 07-08-2019 Head 32mm/+0 Fem V40 Biolox Delta - [id number] , [id number] FDA Start: 07-08-2019 Goals Date Patient Goal Desired Activity /State Functional Status Date Assessment Result Facility 10-29-2023 Functional Status Supervised [facility] 10-29-2023 Functional Status Repositions self [facility] 10-29-2023 Functional Status bilateral knee high applied/on [facility] 10-29-2023 Functional Status Maintained [facility] 10-08-2023 Functional Status Sensory Deficits None A [facility] NEGATED: Highlighted row Functional performance Functional status health issues are not documented [facility] Work Phone: Mental Status Date Assessment Result Facility 10-29-2023 Mental Status Oriented x 4 [facility] 10-29-2023 [facility]: Highlighted row Cognitive function [Interpretation] Cognitive status health issues are not documented [facility] Work Phone: Clinical Notes 02-26-2023 to 11-20-2023 Shay Teague Jr., [facility] - 11/20/2023 11:30 AM ESTPatient InstructionsAnjana Pride MD - 10/17/2023 9:00 AM La Pride MD - 09/09/2023 1:20 PM EST Note Date & Type Note Facility 11-20-2023 History of Presen t illness Narrative HPI Chief Complaint Patient presents with Foot Pain Left foot pain.THR was Oct 29 at [facility] in [facility]. Post op was around 2-19. Symptoms of foot numbness/swelling/pain in all but big toe on L ft. Duration one week Patient is a pleasant 73-year-old female who comes in today with her for new onset numbness and swelling left foot and left calf. She states that she is now 3 weeks status post a total hip replacement from [facility] and we will refill. She states that she thinks everything is going well she is currently in physical therapy rehabbing but in the last 3 days she is getting quite a bit of numbness in her left lateral foot and new onset leg swelling. She states that she has been taking baby aspirin every day as she has been recommended to by her surgeon, comes in today to have this assessed and evaluated. Past Medical History: Diagnosis Date Arthritis Asthma Back pain Bladder prolapse, female, acquired HAD SURG. Cataracts, bilateral small Hyperlipidemia Hypertension Lumbar disc herniation Morbid obesity (HCC) Nephrolithiasis Ovarian cyst Pancreatic cyst Sciatica Sleep apnea CPAP Sleep apnea, obstructive cpap Ureteral stone UTI (urinary tract infection) Past Surgical History: Procedure Laterality Date APPENDECTOMY ARTHROPLASTY HIP ROBOTIC KARLEE Right 07/08/2019 Procedure: Right Total Hip Replacement Robotic; Surgeon: Derek Burns MD; Location: [facility]; Service: Ortho-Robotics COLONOSCOPY 08/21/2016 CT COLONOSCOPY 10/07/2022 CT COLONOSCOPY CYSTO Left 09/18/2017 with retrograde pyelogram placement of stent....Dr. Tovar CYSTO Left 10/09/2017 ureteral stone, removal of double J stent, semirigid ureteroscopy, holmium laser lithotripsy of the stone, removal of the stone fragments with the basket, and placement of double J stent....Dr. Tovar CYSTOCELE REPAIR 04/30/2018 Sling procedure with mesh.....Dr. Boston DILATION AND CURETTAGE OF UTERUS 1977 EGD ENDOSCOPIC ULTRASOUND EXAM N/A 08/26/2018 Procedure: EUS WITH ANES.; Surgeon: Reinaldo Zamorano MD; Location: 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 Does have calf swelling and soreness Physical Exam Patient is AOx3. Linear and appropriate thought process and humor. Vascular: DP PT pulses are easily palpable 2-4. CFT is normal moderate +2 pitting edema to the foot ankle leg and calf. The calf is supple but compression causes pain. Neuro: Light touch is blunted to the third fourth and fifth toes left foot intact.. Babinski's is normal. Musculoskeletal: Muscle strength is 5/5 for all muscle groups left foot and ankle. Range of motion is full and pain-free to the ankle and foot. Impression/Plan Problem List Items Addressed This Visit None Visit Diagnoses Localized edema - Primary Relevant Orders Ultrasound duplex venous leg left Pain of left calf Relevant Orders Ultrasound duplex venous leg left Patient is a pleasant 73-year-old female with concern for postop DVT left total hip replacement and likely inflammation of a previous chronic back arthritis injury and scoliosis during her rehab of a total hip replacement. To better work differential, did add a duplex left leg at [facility] to have this done today or tomorrow. Follow-up in 1 week to reevaluate results and start traditional antiplatelets if required. documented in this encounter [facility] 11-20-2023 Instructions Shay Teague Jr., DPM - 11/20/2023 11:28 AM EST Duplex left leg at [facility]. documented in this encounter [facility] 10-29-2023 Hospital Discharg e instructions Patient Education 10/29/2023 09:49:43 How to Use an Incentive Spirometer How To Use an Incentive Spirometer An incentive spirometer is a tool that measures how well you are filling your lungs with each breath. Learning to take long, deep breaths using this tool can help you keep your lungs clear and active. This may help to reverse or lessen your chance of developing breathing (pulmonary) problems, especially infection. You may be asked to use a spirometer: After a surgery. If you have a lung problem or a history of smoking. After a long period of time when you have been unable to move or be active. If the spirometer includes an indicator to show the highest number that you have reached, your health care provider or respiratory therapist will help you set a goal. Keep a list (log) of your progress as told by your health care provider. What are the risks? Breathing too quickly may cause dizziness or cause you to pass out. Take your time so you do not get dizzy or light-headed. If you are in pain, you may need to take pain medicine before doing incentive spirometry. It is harder to take a deep breath if you are having pain. How to use your incentive spirometer 1.Sit up on the edge of your bed or on a chair. 2.Hold the incentive spirometer so that it is in an upright position. 3.Before you use the spirometer, breathe out normally. 4.Place the mouthpiece in your mouth. Make sure your lips are closed tightly around it. 5.Breathe in slowly and as deeply as you can through your mouth, causing the piston or the ball to rise toward the top of the chamber. 6.Hold your breath for 3 5 seconds, or for as long as possible. If the spirometer includes a track and field coach indicator, use this to guide you in breathing. Slow down your breathing if the indicator goes above the marked areas. 7.Remove the mouthpiece from your mouth and breathe out normally. The piston or ball will return to the bottom of the chamber. 8.Rest for a few seconds, then repeat the steps 10 or more times. Take your time and take a few normal breaths between deep breaths so that you do not get dizzy or light-headed. Do this every 1 2 hours when you are awake. 9.If the spirometer includes a goal marker to show the highest number you have reached (best effort), use this as a goal to work toward during each repetition. 10.After each set of 10 deep breaths, cough a few times. This will help to make sure that your lungs are clear. If you have an incision on your chest or abdomen from surgery, place a pillow or a rolled-up towel firmly against the incision when you cough. This can help to reduce pain from coughing. General tips When you become able to get out of bed, walk around often and continue to cough to help clear your lungs. Keep using the incentive spirometer until your health care provider says it is okay to stop using it. If you have been in the hospital, you may be told to keep using the spirometer at home. Contact a health care provider if: You are having difficulty using the spirometer. You have trouble using the spirometer as often as instructed. Your pain medicine is not giving enough relief for you to use the spirometer as told. You have a fever. You develop shortness of breath. Get help right away if: You develop a cough with bloody mucus from the lungs (bloody sputum). You have fluid or blood coming from an incision site after you cough. Summary An incentive spirometer is a tool that can help you learn to take long, deep breaths to keep your lungs clear and active. You may be asked to use a spirometer after a surgery, if you have a lung problem or a history of smoking, or if you have been inactive for a long period of time. Use your incentive spirometer as instructed every 1 2 hours while you are awake. If you have an incision on your chest or abdomen, place a pillow or a rolled-up towel firmly against your incision when you cough. This will help to reduce pain. This information is not intended to replace advice given to you by your health care provider. Make sure you discuss any questions you have with your health care provider. Document Released: 01/20/2008 Document Revised: 10/02/2018 Document Reviewed: 07/23/2018 [employer] Patient Education 2020 [employer]. 10/29/2023 09:49:20 Spinal Anesthesia and Epidural Anesthesia, Care After, Tuzq-td-Esra Spinal Anesthesia and Epidural Anesthesia, Care After This sheet gives you information about how to care for yourself after your procedure. Your doctor may also give you more specific instructions. If you have problems or questions, call your doctor. Follow these instructions at home: For at least 24 hours after the procedure: Have a responsible adult stay with you. It is important to have someone help care for you until you are awake and alert. Rest as needed. Do not do activities where you could fall or get hurt (injured). Do not drive. Do not use heavy machinery. Do not drink alcohol. Do not take sleeping pills or medicines that make you sleepy (drowsy). Do not make important decisions. Do not sign legal documents. Do not take care of children on your own. Eating and drinking If you throw up (vomit), drink water, juice, or soup when nausea and vomiting stop. Drink enough fluid to keep your pee (urine) pale yellow. Make sure you do not feel like throwing up (nauseous) before you eat solid foods. Follow the diet that your doctor recommends. General instructions Return to your normal activities as told by your doctor. Ask your doctor what activities are safe for you. Take strc-lek-tammmlq and prescription medicines only as told by your doctor. If you have sleep apnea, surgery and certain medicines can raise your risk for breathing problems. Follow instructions from your doctor about when to wear your sleep device. Your doctor may tell you to wear your sleep device: ?Anytime you are sleeping, including during daytime naps. ?While taking prescription pain medicines, sleeping pills, or medicines that make you sleepy. Do not use any products that contain nicotine or tobacco. This includes cigarettes and e-cigarettes. ?If you need help quitting, ask your doctor. ?If you smoke, do not smoke by yourself. Make sure someone is nearby in case you need help. Keep all follow-up visits as told by your doctor. This is important. Contact a doctor if: It has been more than one day since your procedure and you feel like throwing up. It has been more than one day since your procedure and you throw up. You have a rash. Get help right away if: You have a fever. You have a headache that lasts a long time. You have a very bad headache. Your vision is blurry. You see two of a single object (double vision). You are dizzy or light-headed. You faint. Your arms or legs tingle, feel weak, or get numb. You have trouble breathing. You cannot pee (urinate). Summary After the procedure, have a responsible adult stay with you at home until you are fully awake and alert. Do not do activities that might get you injured. Do not drive, use heavy machinery, drink alcohol, or make important decisions for 24 hours after the procedure. Take medicines as told by your doctor. Do not use products that contain nicotine or tobacco. Get help right away if you have a fever, blurry vision, difficulty breathing or passing urine, or weakness or numbness in arms or legs. This information is not intended to replace advice given to you by your health care provider. Make sure you discuss any questions you have with your health care provider. Document Released: 12/31/2016 Document Revised: 08/22/2018 Document Reviewed: 12/31/2016 [employer] Patient Education 2020 [employer]. 10/29/2023 09:49:03 Monitored Anesthesia Care, Care After Monitored Anesthesia Care, Care After These instructions provide you with information about caring for yourself after your procedure. Your health care provider may also give you more specific instructions. Your treatment has been planned according to current medical practices, but problems sometimes occur. Call your health care provider if you have any problems or questions after your procedure. What can I expect after the procedure? After your procedure, you may: Feel sleepy for several hours. Feel clumsy and have poor balance for several hours. Feel forgetful about what happened after the procedure. Have poor judgment for several hours. Feel nauseous or vomit. Have a sore throat if you had a breathing tube during the procedure. Follow these instructions at home: For at least 24 hours after the procedure: Have a responsible adult stay with you. It is important to have someone help care for you until you are awake and alert. Rest as needed. Do not: ?Participate in activities in which you could fall or become injured. ?Drive. ?Use heavy machinery. ?Drink alcohol. ?Take sleeping pills or medicines that cause drowsiness. ?Make important decisions or sign legal documents. ?Take care of children on your own. Eating and drinking Follow the diet that is recommended by your health care provider. If you vomit, drink water, juice, or soup when you can drink without vomiting. Make sure you have little or no nausea before eating solid foods. General instructions Take cbmy-krh-csjckmx and prescription medicines only as told by your health care provider. If you have sleep apnea, surgery and certain medicines can increase your risk for breathing problems. Follow instructions from your health care provider about wearing your sleep device: ?Anytime you are sleeping, including during daytime naps. ?While taking prescription pain medicines, sleeping medicines, or medicines that make you drowsy. If you smoke, do not smoke without supervision. Keep all follow-up visits as told by your health care provider. This is important. Contact a health care provider if: You keep feeling nauseous or you keep vomiting. You feel light-headed. You develop a rash. You have a fever. Get help right away if: You have trouble breathing. Summary For several hours after your procedure, you may feel sleepy and have poor judgment. Have a responsible adult stay with you for at least 24 hours or until you are awake and alert. This information is not intended to replace advice given to you by your health care provider. Make sure you discuss any questions you have with your health care provider. Document Released: 12/30/2016 Document Revised: 12/08/2018 Document Reviewed: 12/30/2016 [employer] Patient Education 2020 [employer]. 10/29/2023 09:48:50 Total Hip Replacement, Anterior, Care After, Ikjt-ga-Hftq Total Hip Replacement, Anterior, Care After This sheet gives you information about how to care for yourself after your procedure. Your doctor may also give you more specific instructions. If you have problems or questions, contact your doctor. What can I expect after the procedure? After the procedure, it is common to have: Pain. Stiffness. Discomfort. Follow these instructions at home: Medicines Take pqea-dyn-tggzoej and prescription medicines only as told by your doctor. If you were prescribed a medicine to thin your blood (anticoagulant), take it as told by your doctor. Surgery cut care Follow instructions from your doctor about how to take care of your cut (incision) from surgery. Make sure you: ?Wash your hands with soap and water before you change your bandage (dressing). If you cannot use soap and water, use alcohol-based hand human factors scientist. ?Change your bandage as told by your doctor. ?Leave stitches (sutures), skin glue, or skin tape (adhesive) strips in place. They may need to stay in place for 2 weeks or longer. If tape strips get loose and curl up, you may trim the loose edges. Do not remove tape strips completely unless your doctor tells you to do that. Check your surgical cut every day for signs of infection. Check for: ?Redness, swelling, or pain. ?Fluid or blood. ?Warmth. ?Pus or a bad smell. Bathing Do not take baths, swim, or use a hot tub until your doctor says it is okay. Keep the bandage dry until your doctor says it can be removed. Managing pain, stiffness, and swelling If directed, put ice on the hip area. ?Put ice in a plastic bag. ?Place a towel between your skin and the bag. ?Leave the ice on for 20 minutes, 2 3 times a day. Move your toes often to avoid stiffness and to lessen swelling. Raise (elevate) your leg above the level of your heart while you are sitting or lying down. Activity Rest as told by your doctor. Do not sit for a long time without moving. Get up to take short walks every 1 2 hours. This is important. Ask for help if you feel weak or unsteady. Do exercises as told by your doctor or physical therapist. Use a walker, crutches, or a cane as told by your doctor. ?You may use your legs to support (bear) your body weight as told by your doctor. Follow instructions about how much weight you may safely support on your affected leg (weight-bearing restrictions). ?A physical therapist may show you how to get out of a bed and chair and how to go up and down stairs. You will first do this with a walker, crutches, or a cane. Then you will do it without any of these devices. ?Once you are able to walk without a limp, you may stop using a walker, crutches, or cane. Return to your normal activities as told by your doctor. Ask your doctor what activities are safe for you. Safety To help prevent falls: ?Keep floors clear of objects you may trip over. ?Place items that you may need within easy reach. Wear an apron or tool belt with pockets for carrying objects. This leaves your hands free to help with your balance. Driving Do not drive or use heavy machinery while taking prescription pain medicine. Ask your doctor when it is safe to drive. General instructions Wear compression stockings as told by your doctor. These help to prevent blood clots and reduce swelling in your legs. Keep doing breathing exercises as told by your doctor. This helps prevent lung infection. If you are taking prescription pain medicine, take actions to prevent or treat constipation. Your doctor may suggest that you: ?Drink enough fluid to keep your pee (urine) pale yellow. ?Eat foods that are high in fiber. These include fresh fruits and vegetables, whole grains, and beans. ?Limit foods that are high in fat and sugar. These include fried or sweet foods. ?Take an nuyw-syg-jnkpiek or prescription medicine for constipation. Do not use any products that have nicotine or tobacco in them, such as cigarettes and e-cigarettes. These can delay bone healing. If you need help quitting, ask your doctor. Tell your doctor if you plan to have dental work. Also: ?Tell your dentist about your joint replacement. ?Ask your doctor if there are instructions you need to follow before dental care and routine cleanings. Keep all follow-up visits as told by your doctor. This is important. Contact a doctor if: You have a fever or chills. You have a cough. You feel short of breath. Your medicine is not helping your pain. You have any of these at or near your cut from surgery: ?Redness, swelling, or pain. ?Fluid or blood. ?An area that feels warm when you touch it. ?Pus or a bad smell. Get help right away if: You have very bad pain. You have trouble breathing. You have chest pain. You have redness, swelling, pain, and warmth in your calf or leg. Summary Follow instructions from your doctor about how to take care of your surgery cut (incision). Do not take baths, swim, or use a hot tub until your doctor says it is okay. Use crutches, a walker, or a cane as told by your doctor. If you were prescribed a medicine to thin your blood (anticoagulant), take it as told by your doctor. This information is not intended to replace advice given to you by your health care provider. Make sure you discuss any questions you have with your health care provider. Document Released: 12/24/2018 Document Revised: 01/18/2020 Document Reviewed: 12/24/2018 [employer] Patient Education 2020 [employer]. Follow Up Care 09/27/2023 10:41:48 With:IFTIKHAR HOLGUIN Address: [address] [place] [place] [address] [place] [address]- [phone] Business (1) When:11/11/2023 15:30:00 [facility] 10-29-2023 Summary of episod e note Discharge Instructions Thank you for allowing [facility] to assist you with your healthcare needs. The following is important discharge information regarding your hospital visit. Your Care Team ANJANA PRIDE MD What to do next Follow Up Appointments Follow Up with IFTIKHAR HOLGUIN When 11/11/2023 03:30 PM EST Where: [facility] [address] [facility] [place] [facility] [place] [address]- [phone] Business (1) Allergies Bactrim (Hives) Biaxin (Hives) lisinopril (Cough or sneeze) meloxicam (Diarrhea) sulfamethoxazole (Hives) Medications Please ask your primary doctor or pharmacist before taking any other medication not listed, including over the counter drugs, herbal medications, vitamins and or supplements as they may interact with your home medications. What How Much When Instructions Last Dose Unchanged amLODIPine (amLODIPine 5 mg oral tablet) 1 tab(s) by mouth Once a day Unchanged atorvastatin (atorvastatin 10 mg oral tablet) 1 tab(s) by mouth Daily at bedtime Unchanged calcium citrate (Citracal 500 mg oral tablet) See instructions Oral BID Unchanged doxazosin (doxazosin 2 mg oral tablet) 1 tab(s) by mouth Once a day Unchanged folic acid (folic acid 1 mg oral tablet) 1 tab(s) by mouth Once a day Unchanged hydrochlorothiazide-losartan (hydrochlorothiazide-losartan 25-100 mg oral tablet) 1 tab(s) by mouth Once a day Unchanged metoprolol (Metoprolol Succinate ER 50 mg oral TABLET extended release) 1 tab(s) by mouth Once a day Unchanged multivitamin (Multivitamin) 1 tab(s) by mouth Every day Unchanged omeprazole 20 Milligram by mouth Every other day Please take this list to your next doctor s visit. Bring all medications you take, including over the counter medications, herbals and other supplements with you to your doctor s visit. Patients and families are reminded to discard old lists and to update any records with all medication providers or retail pharmacies. Education Materials How To Use an Incentive Spirometer An incentive spirometer is a tool that measures how well you are filling your lungs with each breath. Learning to take long, deep breaths using this tool can help you keep your lungs clear and active. This may help to reverse or lessen your chance of developing breathing (pulmonary) problems, especially infection. You may be asked to use a spirometer: After a surgery. If you have a lung problem or a history of smoking. After a long period of time when you have been unable to move or be active. If the spirometer includes an indicator to show the highest number that you have reached, your health care provider or respiratory therapist will help you set a goal. Keep a list (log) of your progress as told by your health care provider. What are the risks? Breathing too quickly may cause dizziness or cause you to pass out. Take your time so you do not get dizzy or light-headed. If you are in pain, you may need to take pain medicine before doing incentive spirometry. It is harder to take a deep breath if you are having pain. How to use your incentive spirometer 1. Sit up on the edge of your bed or on a chair. 2. Hold the incentive spirometer so that it is in an upright position. 3. Before you use the spirometer, breathe out normally. 4. Place the mouthpiece in your mouth. Make sure your lips are closed tightly around it. 5. Breathe in slowly and as deeply as you can through your mouth, causing the piston or the ball to rise toward the top of the chamber. 6. Hold your breath for 3 5 seconds, or for as long as possible. If the spirometer includes a track and field coach indicator, use this to guide you in breathing. Slow down your breathing if the indicator goes above the marked areas. 7. Remove the mouthpiece from your mouth and breathe out normally. The piston or ball will return to the bottom of the chamber. 8. Rest for a few seconds, then repeat the steps 10 or more times. Take your time and take a few normal breaths between deep breaths so that you do not get dizzy or light-headed. Do this every 1 2 hours when you are awake. 9. If the spirometer includes a goal marker to show the highest number you have reached (best effort), use this as a goal to work toward during each repetition. 10. After each set of 10 deep breaths, cough a few times. This will help to make sure that your lungs are clear. If you have an incision on your chest or abdomen from surgery, place a pillow or a rolled-up towel firmly against the incision when you cough. This can help to reduce pain from coughing. General tips When you become able to get out of bed, walk around often and continue to cough to help clear your lungs. Keep using the incentive spirometer until your health care provider says it is okay to stop using it. If you have been in the hospital, you may be told to keep using the spirometer at home. Contact a health care provider if: You are having difficulty using the spirometer. You have trouble using the spirometer as often as instructed. Your pain medicine is not giving enough relief for you to use the spirometer as told. You have a fever. You develop shortness of breath. Get help right away if: You develop a cough with bloody mucus from the lungs (bloody sputum). You have fluid or blood coming from an incision site after you cough. Summary An incentive spirometer is a tool that can help you learn to take long, deep breaths to keep your lungs clear and active. You may be asked to use a spirometer after a surgery, if you have a lung problem or a history of smoking, or if you have been inactive for a long period of time. Use your incentive spirometer as instructed every 1 2 hours while you are awake. If you have an incision on your chest or abdomen, place a pillow or a rolled-up towel firmly against your incision when you cough. This will help to reduce pain. This information is not intended to replace advice given to you by your health care provider. Make sure you discuss any questions you have with your health care provider. Document Released: 01/20/2008 Document Revised: 10/02/2018 Document Reviewed: 07/23/2018 [employer] Patient Education 2020 [employer]. Spinal Anesthesia and Epidural Anesthesia, Care After This sheet gives you information about how to care for yourself after your procedure. Your doctor may also give you more specific instructions. If you have problems or questions, call your doctor. Follow these instructions at home: For at least 24 hours after the procedure: Have a responsible adult stay with you. It is important to have someone help care for you until you are awake and alert. Rest as needed. Do not do activities where you could fall or get hurt (injured). Do not drive. Do not use heavy machinery. Do not drink alcohol. Do not take sleeping pills or medicines that make you sleepy (drowsy). Do not make important decisions. Do not sign legal documents. Do not take care of children on your own. Eating and drinking If you throw up (vomit), drink water, juice, or soup when nausea and vomiting stop. Drink enough fluid to keep your pee (urine) pale yellow. Make sure you do not feel like throwing up (nauseous) before you eat solid foods. Follow the diet that your doctor recommends. General instructions Return to your normal activities as told by your doctor. Ask your doctor what activities are safe for you. Take gogk-xxj-pufywww and prescription medicines only as told by your doctor. If you have sleep apnea, surgery and certain medicines can raise your risk for breathing problems. Follow instructions from your doctor about when to wear your sleep device. Your doctor may tell you to wear your sleep device: ? Anytime you are sleeping, including during daytime naps. ? While taking prescription pain medicines, sleeping pills, or medicines that make you sleepy. Do not use any products that contain nicotine or tobacco. This includes cigarettes and e-cigarettes. ? If you need help quitting, ask your doctor. ? If you smoke, do not smoke by yourself. Make sure someone is nearby in case you need help. Keep all follow-up visits as told by your doctor. This is important. Contact a doctor if: It has been more than one day since your procedure and you feel like throwing up. It has been more than one day since your procedure and you throw up. You have a rash. Get help right away if: You have a fever. You have a headache that lasts a long time. You have a very bad headache. Your vision is blurry. You see two of a single object (double vision). You are dizzy or light-headed. You faint. Your arms or legs tingle, feel weak, or get numb. You have trouble breathing. You cannot pee (urinate). Summary After the procedure, have a responsible adult stay with you at home until you are fully awake and alert. Do not do activities that might get you injured. Do not drive, use heavy machinery, drink alcohol, or make important decisions for 24 hours after the procedure. Take medicines as told by your doctor. Do not use products that contain nicotine or tobacco. Get help right away if you have a fever, blurry vision, difficulty breathing or passing urine, or weakness or numbness in arms or legs. This information is not intended to replace advice given to you by your health care provider. Make sure you discuss any questions you have with your health care provider. Document Released: 12/31/2016 Document Revised: 08/22/2018 Document Reviewed: 12/31/2016 [employer] Patient Education 2020 [employer] Monitored Anesthesia Care, Care After These instructions provide you with information about caring for yourself after your procedure. Your health care provider may also give you more specific instructions. Your treatment has been planned according to current medical practices, but problems sometimes occur. Call your health care provider if you have any problems or questions after your procedure. What can I expect after the procedure? After your procedure, you may: Feel sleepy for several hours. Feel clumsy and have poor balance for several hours. Feel forgetful about what happened after the procedure. Have poor judgment for several hours. Feel nauseous or vomit. Have a sore throat if you had a breathing tube during the procedure. Follow these instructions at home: For at least 24 hours after the procedure: Have a responsible adult stay with you. It is important to have someone help care for you until you are awake and alert. Rest as needed. Do not: ? Participate in activities in which you could fall or become injured. ? Drive. ? Use heavy machinery. ? Drink alcohol. ? Take sleeping pills or medicines that cause drowsiness. ? Make important decisions or sign legal documents. ? Take care of children on your own. Eating and drinking Follow the diet that is recommended by your health care provider. If you vomit, drink water, juice, or soup when you can drink without vomiting. Make sure you have little or no nausea before eating solid foods. General instructions Take prpl-izx-zdraofi and prescription medicines only as told by your health care provider. If you have sleep apnea, surgery and certain medicines can increase your risk for breathing problems. Follow instructions from your health care provider about wearing your sleep device: ? Anytime you are sleeping, including during daytime naps. ? While taking prescription pain medicines, sleeping medicines, or medicines that make you drowsy. If you smoke, do not smoke without supervision. Keep all follow-up visits as told by your health care provider. This is important. Contact a health care provider if: You keep feeling nauseous or you keep vomiting. You feel light-headed. You develop a rash. You have a fever. Get help right away if: You have trouble breathing. Summary For several hours after your procedure, you may feel sleepy and have poor judgment. Have a responsible adult stay with you for at least 24 hours or until you are awake and alert. This information is not intended to replace advice given to you by your health care provider. Make sure you discuss any questions you have with your health care provider. Document Released: 12/30/2016 Document Revised: 12/08/2018 Document Reviewed: 12/30/2016 [employer] Patient Education 2020 [employer] Total Hip Replacement, Anterior, Care After This sheet gives you information about how to care for yourself after your procedure. Your doctor may also give you more specific instructions. If you have problems or questions, contact your doctor. What can I expect after the procedure? After the procedure, it is common to have: Pain. Stiffness. Discomfort. Follow these instructions at home: Medicines Take rtpa-ztt-usnuyza and prescription medicines only as told by your doctor. If you were prescribed a medicine to thin your blood (anticoagulant), take it as told by your doctor. Surgery cut care Follow instructions from your doctor about how to take care of your cut (incision) from surgery. Make sure you: ? Wash your hands with soap and water before you change your bandage (dressing). If you cannot use soap and water, use alcohol-based hand human factors scientist. ? Change your bandage as told by your doctor. ? Leave stitches (sutures), skin glue, or skin tape (adhesive) strips in place. They may need to stay in place for 2 weeks or longer. If tape strips get loose and curl up, you may trim the loose edges. Do not remove tape strips completely unless your doctor tells you to do that. Check your surgical cut every day for signs of infection. Check for: ? Redness, swelling, or pain. ? Fluid or blood. ? Warmth. ? Pus or a bad smell. Bathing Do not take baths, swim, or use a hot tub until your doctor says it is okay. Keep the bandage dry until your doctor says it can be removed. Managing pain, stiffness, and swelling If directed, put ice on the hip area. ? Put ice in a plastic bag. ? Place a towel between your skin and the bag. ? Leave the ice on for 20 minutes, 2 3 times a day. Move your toes often to avoid stiffness and to lessen swelling. Raise (elevate) your leg above the level of your heart while you are sitting or lying down. Activity Rest as told by your doctor. Do not sit for a long time without moving. Get up to take short walks every 1 2 hours. This is important. Ask for help if you feel weak or unsteady. Do exercises as told by your doctor or physical therapist. Use a walker, crutches, or a cane as told by your doctor. ? You may use your legs to support (bear) your body weight as told by your doctor. Follow instructions about how much weight you may safely support on your affected leg (weight-bearing restrictions). ? A physical therapist may show you how to get out of a bed and chair and how to go up and down stairs. You will first do this with a walker, crutches, or a cane. Then you will do it without any of these devices. ? Once you are able to walk without a limp, you may stop using a walker, crutches, or cane. Return to your normal activities as told by your doctor. Ask your doctor what activities are safe for you. Safety To help prevent falls: ? Keep floors clear of objects you may trip over. ? Place items that you may need within easy reach. Wear an apron or tool belt with pockets for carrying objects. This leaves your hands free to help with your balance. Driving Do not drive or use heavy machinery while taking prescription pain medicine. Ask your doctor when it is safe to drive. General instructions Wear compression stockings as told by your doctor. These help to prevent blood clots and reduce swelling in your legs. Keep doing breathing exercises as told by your doctor. This helps prevent lung infection. If you are taking prescription pain medicine, take actions to prevent or treat constipation. Your doctor may suggest that you: ? Drink enough fluid to keep your pee (urine) pale yellow. ? Eat foods that are high in fiber. These include fresh fruits and vegetables, whole grains, and beans. ? Limit foods that are high in fat and sugar. These include fried or sweet foods. ? Take an dkbn-lax-zhzxkkq or prescription medicine for constipation. Do not use any products that have nicotine or tobacco in them, such as cigarettes and e-cigarettes. These can delay bone healing. If you need help quitting, ask your doctor. Tell your doctor if you plan to have dental work. Also: ? Tell your dentist about your joint replacement. ? Ask your doctor if there are instructions you need to follow before dental care and routine cleanings. Keep all follow-up visits as told by your doctor. This is important. Contact a doctor if: You have a fever or chills. You have a cough. You feel short of breath. Your medicine is not helping your pain. You have any of these at or near your cut from surgery: ? Redness, swelling, or pain. ? Fluid or blood. ? An area that feels warm when you touch it. ? Pus or a bad smell. Get help right away if: You have very bad pain. You have trouble breathing. You have chest pain. You have redness, swelling, pain, and warmth in your calf or leg. Summary Follow instructions from your doctor about how to take care of your surgery cut (incision). Do not take baths, swim, or use a hot tub until your doctor says it is okay. Use crutches, a walker, or a cane as told by your doctor. If you were prescribed a medicine to thin your blood (anticoagulant), take it as told by your doctor. This information is not intended to replace advice given to you by your health care provider. Make sure you discuss any questions you have with your health care provider. Document Released: 12/24/2018 Document Revised: 01/18/2020 Document Reviewed: 12/24/2018 [employer] Patient Education 2020 [employer] Signatures Patient Education Materials How to Use an Incentive Spirometer Spinal Anesthesia and Epidural Anesthesia, Care After, Cczj-hz-Qrlf Monitored Anesthesia Care, Care After Total Hip Replacement, Anterior, Care After, Isrd-da-Aehr Medication Leaflets My discharge plan and instructions have been reviewed and explained to me and I,VALORIE BEAN understand my current condition and have read and understand these discharge instructions. I have received a written copy of the plan/instructions. If I have questions, I am aware that I should contact my doctor. Patient/Tree Faller Signature: Date/Time: Relationship to Patient: Witness Name/Signature: Date/Time: [facility] 10-29-2023 Note ORIGINAL Images acquired, not reported on this accession number. [facility] 10-29-2023 Note ORIGINAL EXAMINATION: 2 XRAY VIEWS OF THE LEFT HIP. 1 VIEWS OF THE PELVIS. COMPARISON: None. HISTORY: ORDERING SYSTEM PROVIDED HISTORY: Reason for Exam: Status Post Arthroplasty FINDINGS: Patient is status post bilateral hip replacements. The 1 on the left is new with some subcutaneous air from the surgery. There is no definite adjacent fracture identified, and the prosthetic components appear well seated. Degenerative change lower lumbar spine. IMPRESSION: Expected postoperative findings. Interpreted by: Anjana Beck MD Preliminary Report By: Anjana Beck MD Electronically signed By Anjana Beck MD Dictated Date: 10/29/2023 9:26:41 AM Prelim Date: 10/29/2023 9:27:26 AM Sign Date: 10/29/2023 9:27:26 AM Ordering Provider: IFTIKHAR HOLGUIN [facility] 10-29-2023 Anesthesiology Consult note Patient: VALORIE BEAN Age: 73 years Sex: Female : 1950 Associated Diagnoses: None Author: KENZIE WILL APRN-BJ Preoperative Information Anesthesia history Patient's history: negative. Family's history: negative. Health Status Allergies: Allergic Reactions (Selected) Severity Not Documented Bactrim- Hives. Biaxin- Hives. Lisinopril- Cough or sneeze. Meloxicam- Diarrhea. Sulfamethoxazole- Hives., Allergies (5) ActiveReaction BactrimHives BiaxinHives lisinoprilCough or sneeze meloxicamDiarrhea sulfamethoxazoleHives Current medications: (Selected) Inpatient Medications Ordered Betadine 10% topical solution: 17.5 mL, mL/hr, Topical (INT), PREOP pharm Decadron: 10 mg, 1 mL, IV Push, AsDirected LR 1,000 mL: 125 mL/hr, Intravenous, Stop: 10/29/23 23:59:00 EST Naropin 100 mg + Toradol 15 mg + EPINEPHrine 1 mg/mL injectable solution 0.3 mg + morphine 2.5 mg...: 100 mg, 20 mL, mL/hr, Other, PREOP pharm Naropin 100 mg + Toradol 15 mg + EPINEPHrine 1 mg/mL injectable solution 0.3 mg + morphine 2.5 mg...: 100 mg, 20 mL, mL/hr, Other, PREOP pharm ceFAZolin: 2 gram(s), 200 mL/hr, IV Piggyback, PREOP pharm tranexamic acid 1 g / 100 mL 0.7% NaCl PMX: 1 gram(s), 100 mL, 300 mL/hr, IV Piggyback, AsDirected tranexamic acid 1 g / 100 mL 0.7% NaCl PMX: 1 gram(s), 100 mL, 300 mL/hr, IV Piggyback, AsDirected Documented Medications Documented Citracal 500 mg oral tablet: See Instructions, Oral BID, 0 Refill(s) Metoprolol Succinate ER 50 mg oral TABLET extended release: 50 mg, 1 tab(s), Oral, qDay, 0 Refill(s) Multivitamin: 1 tab(s), Oral, Daily, 0 Refill(s) amLODIPine 5 mg oral tablet: 5 mg, 1 tab(s), Oral, qDay, 0 Refill(s) atorvastatin 10 mg oral tablet: 10 mg, 1 tab(s), Oral, qHS, 0 Refill(s) doxazosin 2 mg oral tablet: 2 mg, 1 tab(s), Oral, qDay, 0 Refill(s) folic acid 1 mg oral tablet: 1 mg, 1 tab(s), Oral, qDay, 0 Refill(s) hydrochlorothiazide-losartan 25-100 mg oral tablet: 1 tab(s), Oral, qDay, 0 Refill(s) omeprazole: 20 mg, Oral, Every other day, 0 Refill(s), Medications (8) Active Scheduled: (7) ceFAZolin 2 gram(s), IV Piggyback, PREOP pharm dexamethasone 10 mg/mL (1mL) SDV 10 mg 1 mL, IV Push, AsDirected povidone iodine topical 17.5 mL, Topical (INT), PREOP pharm ropivacaine 100 mg + ketorolac 15 mg + epinephrine 0.3 mg + morphine 2.5 mg 100 mg 20 mL, Other, PREOP pharm ropivacaine 100 mg + ketorolac 15 mg + epinephrine 0.3 mg + morphine 2.5 mg 100 mg 20 mL, Other, PREOP pharm tranexamic acid PMX 1 gram(s) 100 mL, IV Piggyback, AsDirected tranexamic acid PMX 1 gram(s) 100 mL, IV Piggyback, AsDirected Continuous: (1) Lactated Ringers 1,000 mL 1,000 mL, Intravenous, 125 mL/hr PRN: (0) Problem list: Active Problems (3) Hypertension Osteoarthritis Sleep apnea Histories Past Medical History: No active or resolved past medical history items have been selected or recorded. Family History: Cancer Mother Comments: 10/08/2023 11:50 Denise Netltes RN COLON Father Comments: 10/08/2023 11:50 Denise Nettles RN COLON Procedure history: Hip arthroplasty ([id number]) on 09/23/2018 at 68 Years. Comments: 10/08/2023 11:48 Denise Nettles RN @ [facility] 10/08/2023 11:48 Denise Nettles RN RIGHT @ [facility] ([id number]). Comments: 10/08/2023 11:49 Denise Nettles RN VAGINAL SLING Colonoscopy ([id number]). Social History Social & Psychosocial Habits Alcohol 10/08/2023 Use: Never Substance Abuse 10/08/2023 Use: Never Tobacco 10/08/2023 Tobacco Use: Never (less than 100 in l . Physical Examination Vital Signs 10/29/2023 5:55 EST Temperature Temporal Artery 36.1 DegC Apical Heart Rate 79 bpm Respiratory Rate 14 br/min Systolic Blood Pressure Non-Invasive 110 mmHg Diastolic Blood Pressure Non-Invasive 96 mmHg IN Vital Signs(last 24 hrs) Last Charted [id number] mmHg (OCT 29 05:55) DBPH 96mmHg (OCT 29 05:55) BMI20.43 (OCT 29 06:20) Measurements from flowsheet : Measurements 10/29/2023 6:20 EST Body Mass Index 20.43 kg/m2 10/29/2023 5:55 EST Height 160 cm Admission Weight 52.3 kg [place] Body Weight 52.38 kg Admission Body Mass Index 20.43 m2 Pain assessment: Pain Assessment 10/29/2023 6:19 EST Primary Pain Intensity 10 10/29/2023 5:55 EST Primary Pain Location Hip Primary Pain Laterality Left Primary Pain Intensity 10 Pain Scale Type 0-10 Pain scale . General: Alert and oriented, No acute distress. Airway: Normal temporomandibular joint mobility. Mallampati classification: II (soft palate, fauces, uvula visible). Dentition Evaluation: Denies loose/chipped teeth. Respiratory: Lungs are clear to auscultation, Respirations are non-labored. Cardiovascular: Normal rate, Regular rhythm. Neurologic: Alert, Oriented. Review / Management Results review: No qualifying data available , Lab results 10/29/2023 6:30 EST SN - CAt - Case Attendee SN - CAt - Case Attendee SN - CAt - Role Performed SHARED SERVICES AND OUTSOURCING MANAGER 10/29/2023 6:29 EST SN - Preop - CTm Pt Ready for OR/Proced 10/29/2023 6:29 10/29/2023 6:27 EST SN - Assess - LOC Alert, Awake SN - Assess - Orientation Oriented X 3 SN - Assess - Post-op Skin Integrity Intact/Dry 10/29/2023 6:27 EST SN - GCD - Post-operative Diagnosis UNILATERAL PRIMARY OSTEOARTHRITIS, LEFT HIP SN - GCD - Case Level Level 5 10/29/2023 6:25 EST SN - CAt - Case Attendee SN - CAt - Case Attendee SN - CAt - Case Attendee SN - CAt - Case Attendee SN - CAt - Case Attendee SN - CAt - Case Attendee SN - CAt - Case Attendee SN - CAt - Case Attendee SN - CAt - Case Attendee SN - CAt - Case Attendee SN - CAt - Case Attendee SN - CAt - Case Attendee SN - CAt - Case Attendee SN - CAt - Case Attendee SN - CAt - Case Attendee SN - CAt - Case Attendee SN - CAt - Role Performed Primary Surgeon SN - CAt - Role Performed Physician Cold Patcher SN - CAt - Role Performed Vendor Representatives 1 SN - CAt - Role Performed Vendor Representatives 2 SN - CAt - Role Performed Mortar Maker 1 SN - CAt - Role Performed Scrub 1 SN - CAt - Role Performed X-Ray Tech SN - CAt - Role Performed Adult Basic Education Manager 10/29/2023 6:21 EST SN - Preop - CTm Pt in SDS Room 10/29/2023 5:55 10/29/2023 6:20 EST Designated Person #1 We May Share PHI Designated Person #1 We May Share PHI Designated Person #1 Relationship Spouse Privacy Restrictions Requested None Body Mass Index 20.43 kg/m2 Status N/A Sensory Deficits None Diagnosed With Sleep Apnea Yes Advanced Directives Yes Advance Directive Type [place] Declaration (Living Will) Advance Directive Location Patient instructed to bring in copy Infectious Disease Symptoms Patient states no symptoms Infectious Disease Recent Exposure No Alcohol and Drug Use No Employee of Institutional Living No Health Care Employee No History of Exposure to TB No History of Positive Chest X-Ray for TB No History of Positive TB Skin Test No Homeless No Known Immunosuppression No Recent Immigrant No Resident of Institutional Living No Bloody Sputum No Fatigue No Fever No Loss of Appetite No Night Sweats No Persistent Cough > 3 Weeks No Weight Loss No Pre-Op Patient Education NPO after midnight, No makeup, No jewelry, Responsible Libertarian, Aware of surgery location, 1 bottle CHG wash with instructions given, Instructed to take ordered medications, Total Joint Replacement/Colorectal Book Given SN - Preprocedure Comments Spoke with patient, Verbalizes/Nonverbally indicates understanding, Other: METOPROLOL, AMLODPINE, OMEPRAZOLE, BRING CPAP Barriers to Learning None evident Teaching Method Explanation, Printed materials Preferred Spoken Language Puerto Rican Preferred Written Language Puerto Rican Teaching Evaluation Needs further teaching Total Joint Book Given Yes Safety Brochure Information Reviewed Unable to complete Mela Malhotra Video Viewed No Information Given by Patient Patient's Current Physicians DR. SHAYY NAYLOR Discharge To, Anticipated Home independently Prev Test Positive/Diagnosis w/COVID-19 Yes Previous COVID-19 Positive 2019 Current Quarantine/Isolated any Illness No Any Contact with Sick Animals/Birds No Traveled Anywhere in Last 30 Days No Lost Weight Unintentionally Recently No Eat Poorly Due to Decreased Appetite No Total MST Score 0 N/A Personal Devices, Patient Valuables None Anesthesia/Transfusions Prior anesthesia Admission Note-Nursing Same Day Patient History 10/29/2023 6:19 EST Primary Pain Intensity 10 citric acid-sodium citrate Not Done: Other (Not Done) oxyCODONE 10 mg mg 10/29/2023 6:18 EST famotidine 20 mg mg Lactated Ringers Injection 1,000 mL mL 10/29/2023 6:11 EST Continuous IV Infusions LR Hand Right 20 gauge Peripheral IV Activity: Insert new site Peripheral IV Dressing Condition: Clean, Dry, Intact Peripheral IV Dressing Activity: Applied, Transparent dressing Peripheral IV Line Status/Patency: Continuous infusion Peripheral IV Line Care: Secured with tape Peripheral IV Site Condition: No complications Peripheral IV Equipment: Extension set, IV Pump Peripheral IV Number of Attempts: 1 10/29/2023 5:55 EST Height 160 cm Admission Weight 52.3 kg [place] Body Weight 52.38 kg Admission Body Mass Index 20.43 m2 Temperature Temporal Artery 36.1 DegC Apical Heart Rate 79 bpm Respiratory Rate 14 br/min Systolic Blood Pressure Non-Invasive 110 mmHg Diastolic Blood Pressure Non-Invasive 96 mmHg HI Primary Pain Location Hip Primary Pain Laterality Left Primary Pain Intensity 10 Pain Scale Type 0-10 Pain scale Heart Sounds ICU S1S2 Heart Rhythm Regular Dorsalis Pedis Pulse, Left 2+ Normal Dorsalis Pedis Pulse, Right 2+ Normal Respirations Unlabored All Lobes Breath Sounds Diminished Oxygen Therapy Room air Oxygen Saturation 97 % Abdomen Description Non-distended, Soft Bowel Sounds All Quadrants Present Urinary Elimination Incontinence Skin Temperature Warm Skin Description [place], Dry Skin Integrity Intact Mucous Membrane Color [place] IV Present Present Characteristics of Speech Clear Level of Consciousness Alert Strength All Extremities Moderate Tone All Extremities Normal Sensation All Extremities Intact Affect/Behavior Appropriate, Calm, Cooperative Orientation Oriented x 4 Patient Identified Identification band, Verbal Allergies Yes Anesthesia Extension Set Applied Yes Parts Identifier On Yes Consent Form Signed Yes Patient Dressed In Hospital gown Pre-op Preparation Undergarments removed CHG Preoperative Wash/Wipe Night before procedure, Day of procedure Preop Nasal Swab Povidone-Iodine History & Physical Update On Chart Yes History & Physical On Chart Yes Obstructive Sleep Apnea Assess Completed Yes Arrival Mode Ambulatory Robert Motor (2) Moves 4 extremities voluntarily or on command Robert Respirations (2) Spontaneous respiration without support, RR > 10 Robert Blood Pressure (2) BP 20% above or below preanesthetic level Robert Pulse (2) Pulse 20% above or below preanesthetic level Robert Oxygen Saturation (2) 94% or more Robert Level of Consciousness (2) Fully awake Robert III Score 12 Belongings At Bedside Pants, Shirt, Shoes, Socks, Undergarments, Walker Personal Home Medications Received No home medications were brought in Belongings Sent Home None Belongings to Security/Secured in Dept None Assistive Device Walker NPO Status Maintained Standard Safety ID band on, Allergy Band on, Call device within reach, Bed in low position, Wheels locked, Non-Slip footwear Allergy Band on and Verified Yes Patient ID Band on and Verified Yes Implants Verified Yes Pacemaker/AICD Verified Yes Site Verified by Patient/Family Yes Anesthesia Consent Signed Yes Blood Consent Signed Yes Last Fluid Intake 10/28/2023 23:00 Last Food Intake 10/28/2023 22:30 . Assessment and Plan [place] [employer] Anesthesiologists (ASA) physical status classification: Class III. Anesthetic Preoperative Plan Anesthetic technique: Spinal. Regional: Spinal. Postoperative pain management: Per surgeon. Risks discussed: nausea, vomiting, headache, hypotension, allergic reaction, serious complications. Informed consent: signed by patient. Digitally Signed by KENZIE WILL on 10/29/2023 06:35 AM [facility] 10-17-2023 History of Presen t illness Narrative Subjective Patient ID: Valorie Bean is a 73 y.o. female who presents for Pre-op Exam (L THR). HPI 73 yo WF for LTHR, never AR or CHF, never smoke. Tolerates 4 MET workload. EKG is nsr, 1 deg avb. Cbc cmp both normal Nocturia and leakage, ok by day. Review of Systems General-no fatigue weight to within 10 pounds ENT no problems with vision swallowing Cardiac no chest pains palpitations change in exercise tolerance or capacity Pulmonary no cough shortness of breath GI no heartburn or abdominal pain Musculoskeletal multiple joint pains Objective BP 132/60 Pulse 67 Ht 1.6 m (5' 3 ) Wt 90.9 kg (200 lb 6.4 oz) SpO2 98% BMI 35.50 kg/m Physical Exam General: Alert, No acute distress. Appears stated age Eye: Pupils are equal, round and reactive to light, Extraocular movements are intact, Normal conjunctiva. Neck: Supple, Non-tender, No carotid bruit, No jugular venous distention, No lymphadenopathy, No thyromegaly. Respiratory: Lungs are clear to auscultation, Respirations are non-labored, Breath sounds are equal. Cardiovascular: Normal rate, Regular rhythm, No murmur. Gastrointestinal: Soft, Non-tender, No organomegaly. No solid or pulsatile mass Integumentary: Warm, Dry. No concerning lesions on exposed areas Neurologic: Alert, Oriented. Gross and fine motor intact, CN 2-12 intact Psychiatric: Cooperative, Appropriate mood & affect. Assessment/Plan Problem List Items Addressed This Visit ICD-10-CM Osteoarthritis - Primary M19.90 Other Visit Diagnoses Codes Urge and stress incontinence N39.46 Relevant Medications oxybutynin (Ditropan) 5 mg tablet Routine general medical examination at a health care facility Z00.00 Relevant Medications losartan-hydrochlorothiazide (Hyzaar) 100-25 mg tablet There should be no further testing necessary prior to the planned procedure. EKG CBC CMP reviewed documented in this encounter [facility] Work Phone: 09-09-2023 History of Presen t illness Narrative Subjective Patient ID: Valorie Bean is a 73 y.o. female who presents for Follow-up (6 mo rev labs). HPI looking at hip replacement to [facility] where sophia went. Since the last office visit there have been no interval operations, hospitalizations, important illnesses or injuries. HTN-Takes and tolerates meds without side effects. No alcohol. no tobacco. no exercise. low salt. Reviewed recommendation for 150 minutes of exercise per week including 2 days of weight training if over age 50 Hyperlipidemia- is on a statin and a prudent diet. GERD-Takes PPI daily with no breakthrough symptoms. Reviewed dietary, caffeine, tobacco, alcohol, and NSAID avoidance. No dyspepsia, dysphagia, reflux, melena, or abdominal pain. Review of Systems General-no fatigue weight to within 10 pounds ENT no problems with vision swallowing Cardiac no chest pains palpitations change in exercise tolerance or capacity Pulmonary no cough shortness of breath GI no heartburn or abdominal pain Musculoskeletal +joint pains Objective BP 128/60 Pulse 98 Ht 1.6 m (5' 3 ) Wt 92.2 kg (203 lb 4.8 oz) SpO2 98% BMI 36.01 kg/m Physical Exam General: Alert, No acute distress. Appears stated age Eye: Pupils are equal, round and reactive to light, Extraocular movements are intact, Normal conjunctiva. Neck: Supple, Non-tender, No carotid bruit, No jugular venous distention, No lymphadenopathy, No thyromegaly. Respiratory: Lungs are clear to auscultation, Respirations are non-labored, Breath sounds are equal. Cardiovascular: Normal rate, Regular rhythm, No murmur. Gastrointestinal: Soft, Non-tender, No organomegaly. No solid or pulsatile mass Integumentary: Warm, Dry. No concerning lesions on exposed areas Neurologic: Alert, Oriented. Gross and fine motor intact, CN 2-12 intact Psychiatric: Cooperative, Appropriate mood & affect. Assessment/Plan Problem List Items Addressed This Visit ICD-10-CM Gastroesophageal reflux disease without esophagitis K21.9 Relevant Orders Follow Up In Primary Care Hypertension - Primary I10 Relevant Orders Follow Up In Primary Care Hyperlipidemia E78.5 Relevant Orders Follow Up In Primary Care Inflammatory arthritis M19.90 Relevant Orders Follow Up In Primary Care documented in this encounter [facility] Work Phone: 09-05-2023 History of Presen t illness Narrative Valorie Mareclla Bean 1950 CC: 73 y.o. is a she with left hip pain. Chief Complaint Patient presents with Left Hip - Pain . HPI: Hip Pain patient presents to the office today with complaints of left hip pain. She denies any injury to the left hip. She has had pain in that left hip for quite some time but recently had is continued to worsen. Over the past months she has started to have to use a cane for ambulation. She states she has pain in the groin as well as on the front of the thigh. She has difficulty with range of motion as well. Getting socks and shoes on, getting in and out of a vehicle are becoming more difficult and painful in that left hip. She takes OTC pain medications on occasion which do not often offer her resolution of pain or symptoms. The patient's past medical history, surgical history, social history, family history, medications and allergies were reviewed with the patient today and are available in the chart for further review. PMH: Allergies Allergen Reactions Lisinopril Hives Sulfamethoxazole-Trimethoprim Diarrhea Meloxicam Diarrhea Sulfa (Sulfonamide Antibiotics) Hives Biaxin [Clarithromycin] Rash Current Outpatient Medications: amLODIPine (NORVASC) 5 MG tablet, Take 1 (one) tablet (5 mg total) by mouth daily ., Disp: , Rfl: atorvastatin (LIPITOR) 10 MG tablet, Take 1 (one) tablet (10 mg total) by mouth nightly ., Disp: , Rfl: calcium citrate/vitamin D3 (CITRACAL REGULAR ORAL), Take 1,200 mg by mouth daily., Disp: , Rfl: doxazosin (CARDURA) 2 MG tablet, Take 1 (one) tablet (2 mg total) by mouth daily ., Disp: , Rfl: FOLIC ACID, BULK, MISC, by Miscellaneous route ., Disp: , Rfl: losartan-hydrochlorothiazide (HYZAAR) 100-25 mg per tablet, Take 1 (one) tablet by mouth daily ., Disp: , Rfl: METHOTREXATE, BULK, MISC, by Miscellaneous route ., Disp: , Rfl: METOPROLOL SUCCINATE ORAL, Take by mouth ., Disp: , Rfl: multivitamin (multivitamin) per tablet, Take 1 (one) tablet by mouth daily ., Disp: , Rfl: omeprazole (PRILOSEC OTC) 20 MG tablet, Take 1 (one) tablet (20 mg total) by mouth 2 (two) times a day ., Disp: 60 tablet, Rfl: 3 Past Medical History: Diagnosis Date Arthritis Asthma Back pain Bladder prolapse, female, acquired HAD SURG. Cataracts, bilateral small Hyperlipidemia Hypertension Lumbar disc herniation Morbid obesity (HCC) Nephrolithiasis Ovarian cyst Pancreatic cyst Sciatica Sleep apnea CPAP Sleep apnea, obstructive cpap Ureteral stone UTI (urinary tract infection) Past Surgical History: Procedure Laterality Date APPENDECTOMY ARTHROPLASTY HIP ROBOTIC KARLEE Right 07/08/2019 Procedure: Right Total Hip Replacement Robotic; Surgeon: Derek Burns MD; Location: [facility] [place]; Service: Ortho-Robotics COLONOSCOPY 08/21/2016 CYSTO Left 09/18/2017 with retrograde pyelogram placement of stent....Dr. Tovar CYSTO Left 10/09/2017 ureteral stone, removal of double J stent, semirigid ureteroscopy, holmium laser lithotripsy of the stone, removal of the stone fragments with the basket, and placement of double J stent....Dr. Tovar CYSTOCELE REPAIR 04/30/2018 Sling procedure with mesh.....Dr. Boston DILATION AND CURETTAGE OF UTERUS 1977 EGD ENDOSCOPIC ULTRASOUND EXAM N/A 08/26/2018 Procedure: EUS WITH ANES.; Surgeon: Reinaldo Zamorano MD; Location: [facility]; Service: Gastroenterology HYSTERECTOMY HYSTERECTOMY VAGINAL 1987 with vaginectomy KNEE SURGERY Right 1993 scope, arthritis clean out SALPINGOOPHORECTOMY Bilateral 1989 TUBAL LIGATION Social History Socioeconomic History Marital status: Occupational History Occupation: Mostly housewife Occupation: worked in [employer] and [employer] Tobacco Use Smoking status: Never Smokeless tobacco: Never Vaping Use Vaping Use: Never used Substance and Sexual Activity Alcohol use: No Drug use: No ROS: Review of Systems Constitutional: Negative for activity change and fatigue. HENT: Negative for congestion, hearing loss and trouble swallowing. Eyes: Negative for visual disturbance. Respiratory: Negative for chest tightness and shortness of breath. Cardiovascular: Negative for chest pain and palpitations. Gastrointestinal: Negative for abdominal pain, diarrhea, nausea and vomiting. Endocrine: Negative for polydipsia, polyphagia and polyuria. Genitourinary: Negative for decreased urine volume, difficulty urinating and hematuria. Musculoskeletal: Positive for arthralgias, gait problem and myalgias. Negative for joint swelling. Skin: Negative for color change, rash and wound. Allergic/Immunologic: Negative for immunocompromised state. Neurological: Negative for dizziness, weakness, light-headedness and numbness. Hematological: Does not bruise/bleed easily. Psychiatric/Behavioral: Negative for confusion and sleep disturbance. The patient is not nervous/anxious. PE: Physical Exam Constitutional: Appearance: She is well-developed. HENT: Head: Normocephalic. Eyes: Pupils: Pupils are equal, round, and reactive to light. Cardiovascular: Rate and Rhythm: Normal rate and regular rhythm. Pulmonary: Effort: Pulmonary effort is normal. Breath sounds: Normal breath sounds. Abdominal: General: Bowel sounds are normal. Palpations: Abdomen is soft. Musculoskeletal: General: Tenderness present. No swelling. Normal range of motion. Cervical back: Normal range of motion and neck supple. Skin: General: Skin is warm and dry. Neurological: Mental Status: She is alert and oriented to person, place, and time. ORTHO: Left Hip Exam Tenderness The patient is experiencing tenderness in the anterior. Range of Motion External rotation: 10 Internal rotation: 5 Muscle Strength The patient has normal left hip strength. Tests SEAN: positive Other Erythema: absent Scars: absent Sensation: normal Pulse: present Imaging: Left hip: No acute fracture or dislocation. There is severe degeneration in the left hip. Assessment/Plan: After examination and reviewing the patient x-ray images we discussed treatment options for the left hip. We did discuss continued conservative measures such as a injection into the hip joint as well as OTC pain medications or a course of outpatient physical therapy. We also discussed surgical intervention which would result in a left total hip replacement. At this point time the patient wishes to go home and discuss this further with family as her is scheduled to have a procedure done this September and she is unable to decide a timeframe at this point time for any type of surgery. She is to contact the office if she wishes to move forward with hip replacement surgery. Diagnosis: Problem List Items Addressed This Visit None Follow Up: documented in this encounter [facility] 02-26-2023 History of Presen t illness Narrative Subjective Reason for Visit: Valorie Bean is an 72 y.o. female here for a Medicare Wellness visit. Past Medical, Surgical, and Family History reviewed and updated in chart. Reviewed all medications by prescribing practitioner or clinical pharmacist (such as prescriptions, OTCs, herbal therapies and supplements) and documented in the medical record. HPI Since the last office visit there have been no interval operations, hospitalizations, important illnesses or injuries. PUD- every other day ppi HTN-Takes and tolerates meds without side effects. No alcohol. no tobacco. no exercise. low salt. Reviewed recommendation for 150 minutes of exercise per week including 2 days of weight training if over age 50 PHN- cont on jama 300 bid Hyperlipidemia- is on a statin and a prudent diet. Patient Care Team: Anjana Pride MD as PCP - General Anjana Pride MD as PCP - [facility] Attributed Provider Review of Systems Objective Vitals: BP 128/60 Pulse 63 Ht 1.6 m (5' 3 ) Wt 91.5 kg (201 lb 12.8 oz) SpO2 96% BMI 35.75 kg/m Physical Exam Assessment/Plan Problem List Items Addressed This Visit None Visit Diagnoses Routine general medical examination at health care facility - Primary documented in this encounter [facility] Work Phone: Evaluation + Plan note Future Appointments [facility] documented in this encounter [facility] Work Phone: Evaluation note* Diagnosis Primary osteoarthritis of [facility]- [facility] Primary hypertension- Primary Unspecified essential hypertension Gastroesophageal reflux disease without esophagitis Esophageal reflux Mixed hyperlipidemia Inflammatory arthritis Unspecified inflammatory polyarthropathy documented in this encounter [facility] Work Phone: Evaluation note* Diagnosis Primary osteoarthritis of left hip- Primary Urge and stress incontinence Mixed incontinence urge and stress (male)(female) Routine general medical examination at a health care facility documented in this encounter [facility] Work Phone: Evaluation note* Diagnosis Localized edema- Primary Edema Pain of left [facility] Localized edema Edema Pain in left lower leg Pain in left leg documented in this encounter [facility] Work Phone: Evaluation note* Diagnosis Localized edema Edema Pain in left lower leg Pain in left leg documented in this encounter [facility] Work Phone: History of Present illness Narrative* The patient is being seen for the subsequent annual wellness visit. * Past Medical, Surgical and Family History: reviewed and updated in chart. * Interval History: Patient has not been hospitalized previously. * Medications and Supplements: Medications and supplements, including calcium and vitamins reviewed and updated in chart. * No, the patient is not using opioids. * Health Risk Assessment:. Paper HRA completed by patient and scanned into chart. * Patient Self Assessment of Health Status: excellent. * Tobacco use: Non-User * Alcohol use: Non-User, As noted in social history * Illicit drug use: Non-User * Current diet: well balanced diet. * Exercise Frequency: infrequently. * Depression/Suicide Screening: . * During the past 2 weeks, the patient has not felt down, depressed or hopeless. * During the past 2 weeks, the patient has not felt little interest or pleasure in doing things. * Hearing Impairment: none. * Cognitive Impairment: No cognitive impairment observed. * Bathing: performs independently. * Dressing: performs independently. * Walking: performs independently. * Toileting: performs independently. * Feeding: performs independently. * Personal Hygiene: performs independently. * Bowels: continent. * Bladder: continent. * Managing Finances: performs independently. * Shopping: performs independently. * Managing Medications: performs independently. * Housework / Basic Home Maintenance: performs independently. * Handling Transportation: performs independently. * Preparing Meals: performs independently. * Using the Telephone/ Communication Devices: performs independently. * Falls Risk Screening:. VALORIE has not fallen in the last 6 months. * Home safety risk factors: none. [facility] Work Phone: History of Present illness Narrative* Since the last office visit there have been no interval operations, hospitalizations, important illnesses or injuries. * copd- no exacerbations since last ov. uses inhaler prn * HTN-Takes and tolerates meds without side effects. No alcohol. no tobacco. no exercise. low salt. Reviewed recommendation for 150 minutes of exercise per week including 2 days of weight training if over age 50 * Hyperlipidemia- is on statin and a prudent diet. * tu on cpap * GERD-Takes PPI daily with no breakthrough symptoms. Reviewed dietary, caffeine, tobacco, alcohol, and NSAID avoidance. has tolerated recc for qod for gerd. may try off. had irritatation on egd last yr * plantar facitis exercises sent [facility] Work Phone: History of Present illness Narrative* The patient is being seen for the subsequent annual wellness visit. * Past Medical, Surgical and Family History: reviewed and updated in chart. * Interval History: Patient has not been hospitalized previously. * Medications and Supplements: Review of all medications by a prescribing practitioner or clinical pharmacist (such as prescriptions, OTCs, herbal therapies and supplements) documented in the medical record. * No, the patient is not using opioids. * Health Risk Assessment:. Paper HRA completed by patient and scanned into chart. * Patient Self Assessment of Health Status: excellent. * Tobacco use: Non-User * Alcohol use: Non-User, As noted in social history * Illicit drug use: Non-User * Current diet: well balanced diet. * Exercise Frequency: infrequently. * Depression/Suicide Screening: . * During the past 2 weeks, the patient has not felt down, depressed or hopeless. * During the past 2 weeks, the patient has not felt little interest or pleasure in doing things. * Hearing Impairment: none. * Cognitive Impairment: No cognitive impairment observed. * Bathing: performs independently. * Dressing: performs independently. * Walking: performs independently. * Toileting: performs independently. * Feeding: performs independently. * Personal Hygiene: performs independently. * Bowels: continent. * Bladder: continent. * Managing Finances: performs independently. * Shopping: performs independently. * Managing Medications: performs independently. * Housework / Basic Home Maintenance: performs independently. * Handling Transportation: performs independently. * Preparing Meals: performs independently. * Using the Telephone/ Communication Devices: performs independently. * Falls Risk Screening:. VALORIE has not fallen in the last 6 months. * Home safety risk factors: none. * Advance directives:. Advance Care Planning discussed and documented in the medical record, patient did not wish or was not able to name a surrogate decision maker or provide an advance care plan. Patient has living will. Patient has healthcare POA. * Since the last office visit there have been no interval operations, hospitalizations, important illnesses or injuries. * sees dr hidalgo [place] injection * HTN-Takes and tolerates meds without side effects. No alcohol. no tobacco. some exercise. low salt.Reviewed recommendation for 150 minutes of exercise per week including 2 days of weight training ifover age 50 * Hyperlipidemia- is on statin and a prudent diet. * GERD-Takes PPI QOdaily with no breakthrough symptoms. Reviewed dietary, caffeine, tobacco, alcohol,and NSAID avoidance. had pud. * recc booster covid * colon q3 for fam hx and is 18 mointo interval -[facility] [employer] [facility] Work Phone: History of Present illness Narrative* has left L3 shingles persisting pain for 5 weeks. rev neurontin use * to get mmg soon * HTN-Takes and tolerates meds without side effects. No alcohol. no tobacco. no exercise. low salt. Reviewed recommendation for 150 minutes of exercise per week including 2 days of weight training if over age 50 * Hyperlipidemia- is on statin and a prudent diet. [employer] [facility] Work Phone: History of Present illness NarrativePresents for breast and pelvic exam. She had previous hysterectomy. Denies any bowel or bladder problems. Denies any breast problems.[address] Work Phone: Hospital course Narrative No data available for this section [facility] Hospital Discharge instructions No data available for this section [facility] Progress note No data available for this section [facility] Reason for referral (narrative)* Consultation (Routine) - Authorized Specialty Diagnoses / Procedures Referred By Contcharlette t Referred To Contact Primary Care Diagnoses Primary hypertension Gastroesophageal reflux disease without esophagitis Mixed hyperlipidemia Procedures Follow Up In Primary Care Anjana Pride MD [id number] [id number] Referral ID Status Reason Start Date Expiration Date V isits Requested Visits Authorized [id number] Authorized 02/26/2023 08/25/2023 1 1 [facility] Work Phone: Reason for referral (narrative)* Consultation (Routine) - Authorized Specialty Diagnoses / Procedures Referred By Thierno puentes Referred To Contact Primary Care Diagnoses Primary hypertension Gastroesophageal reflux disease without esophagitis Mixed hyperlipidemia Inflammatory arthritis Procedures Follow Up In Primary Care Anjana Pride MD [address] [place] [address] Referral ID Status Reason Start Date Expiration Date V isits Requested Visits Authorized [id number] Authorized 09/09/2023 09/08/2024 1 1 [facility] Work Phone: Summary Purpose Family History No Family History Records Found Mother Name Dates Details Family history of malignant neoplasm of colon(V16.0, Z80.0) Status:Active Father Name Dates Details Family history of malignant neoplasm of colon(V16.0, Z80.0) Status:Active Family history of hypertensi on(V17.49, Z82.49) Status:Active Brother Name Dates Details Family history of hypertensi on(V17.49, Z82.49) Status:Active Mother Name Dates Details Family history of malignant neoplasm of colon(V16.0, Z80.0) Status:Active Father Name Dates Details Family history of malignant neoplasm of colon(V16.0, Z80.0) Status:Active Family history of hypertensi on(V17.49, Z82.49) Status:Active Brother Name Dates Details Family history of hypertensi on(V17.49, Z82.49) Status:Active Mother Name Dates Details Family history of malignant neoplasm of colon(V16.0, Z80.0) Status:Active Father Name Dates Details Family history of malignant neoplasm of colon(V16.0, Z80.0) Status:Active Family history of hypertensi on(V17.49, Z82.49) Status:Active Brother Name Dates Details Family history of hypertensi on(V17.49, Z82.49) Status:Active Mother Name Dates Details Family history of malignant neoplasm of colon(V16.0, Z80.0) Status:Active Father Name Dates Details Family history of malignant neoplasm of colon(V16.0, Z80.0) Status:Active Family history of hypertensi on(V17.49, Z82.49) Status:Active Brother Name Dates Details Family history of hypertensi on(V17.49, Z82.49) Status:Active Unknown Family Member Name Dates Details Family history of malignant neoplasm of colon: Mother, Father(V16.0, Z80.0) Status:Active Family history of hypertensi on: Father, Brother(V17.49, Z82.49) Status:Active Unknown Family Member Name Dates Details Family history of hypertensi on: Father, Brother(V17.49, Z82.49) Status:Active Family history of malignant neoplasm of colon: Mother, Father(V16.0, Z80.0) Status:Active Unknown Family Member Name Dates Details Family history of malignant neoplasm of colon: Mother, Father(V16.0, Z80.0) Status:Active Family history of hypertensi on: Father, Brother(V17.49, Z82.49) Status:Active Unknown Family Member Name Dates Details Family history of malignant neoplasm of colon: Mother, Father(V16.0, Z80.0) Status:Active Family history of hypertensi on: Father, Brother(V17.49, Z82.49) Status:Active Unknown Family Member Name Dates Details Family history of malignant neoplasm of colon: Mother, Father(V16.0, Z80.0) Status:Active Family history of hypertensi on: Father, Brother(V17.49, Z82.49) Status:Active Unknown Family Member Name Dates Details Family history of malignant neoplasm of colon: Mother, Father(V16.0, Z80.0) Status:Active Family history of hypertensi on: Father, Brother(V17.49, Z82.49) Status:Active Unknown Family Member Name Dates Details Family history of hypertensi on: Father, Brother(V17.49, Z82.49) Status:Active Family history of malignant neoplasm of colon: Mother, Father(V16.0, Z80.0) Status:Active Unknown Family Member Name Dates Details Family history of hypertensi on: Father, Brother(V17.49, Z82.49) Status:Active Family history of malignant neoplasm of colon: Mother, Father(V16.0, Z80.0) Status:Active Unknown Family Member Name Dates Details Family history of malignant neoplasm of colon: Mother, Father(V16.0, Z80.0) Status:Active Family history of hypertensi on: Father, Brother(V17.49, Z82.49) Status:Active Unknown Family Member Name Dates Details Family history of malignant neoplasm of colon: Mother, Father(V16.0, Z80.0) Status:Active Family history of hypertensi on: Father, Brother(V17.49, Z82.49) Status:Active Unknown Family Member Name Dates Details Family history of hypertensi on: Father, Brother(V17.49, Z82.49) Status:Active Family history of malignant neoplasm of colon: Mother, Father(V16.0, Z80.0) Status:Active Unknown Family Member Name Dates Details Family history of malignant neoplasm of colon: Mother, Father(V16.0, Z80.0) Status:Active Family history of hypertensi on: Father, Brother(V17.49, Z82.49) Status:Active Unknown Family Member Name Dates Details Family history of malignant neoplasm of colon: Mother, Father(V16.0, Z80.0) Status:Active Family history of hypertensi on: Father, Brother(V17.49, Z82.49) Status:Active Unknown Family Member Name Dates Details Family history of malignant neoplasm of colon: Mother, Father(V16.0, Z80.0) Status:Active Family history of hypertensi on: Father, Brother(V17.49, Z82.49) Status:Active Advance Directives No Advanced Directives Records FoundDocuments on File Type Date Recorded Patient Tree Faller Expl anation Advance Directives and Livin g Will 08/20/2018 10:12 AM Advance Directives and Livin g Will 02/25/2019 10:31 AM Documents on File Type Date Recorded Patient Tree Faller Expl anation Advance Directives and Livin g Will 02/26/2019 1:09 PM Advance Directives and Livin g Will 02/26/2019 1:08 PM Documents on File Type Date Recorded Patient Tree Faller Expl anation Advance Directives and Livin g Will 03/13/2019 2:35 PM Advance Directives and Livin g Will 02/26/2019 1:08 PM Documents on File Type Date Recorded Patient Tree Faller Expl anation Advance Directives and Livin g Will 03/13/2019 2:35 PM Advance Directives and Livin g Will 02/26/2019 1:08 PM Documents on File Type Date Recorded Patient Tree Faller Expl anation Advance Directives and Livin g Will 06/09/2019 7:57 AM Advance Directives and Livin g Will 02/26/2019 1:08 PM Documents on File Type Date Recorded Patient Tree Faller Expl anation Advance Directives and Livin g Will 07/08/2019 7:36 AM Advance Directives and Livin g Will 02/26/2019 1:08 PM Latest Code Status on File Code Status Date Activated Date Inactivated Comments Full Code 07/08/2019 10:24 AM Documents on File Type Date Recorded Patient Tree Faller Expl anation Advance Directives and Livin g Will 07/08/2019 7:36 AM Advance Directives and Livin g Will 02/26/2019 1:08 PM Power of Check Out Clerk Latest Code Status on File Code Status Date Activated Date Inactivated Comments Full Code 07/08/2019 10:24 AM Documents on File Type Date Recorded Patient Tree Faller Expl anation Advance Directives and Livin g Will 07/08/2019 7:36 AM Advance Directives and Livin g Will 02/26/2019 1:08 PM Power of Check Out Clerk Documents on File Type Date Recorded Patient Tree Faller Expl anation Advance Directives and Livin g Will 07/08/2019 7:36 AM Advance Directives and Livin g Will 02/26/2019 1:08 PM Power of Check Out Clerk Power of Check Out Clerk 07/28/2019 6:13 PM Documents on File Type Date Recorded Patient Tree Faller Expl anation Advance Directives and Livin g Will 06/09/2019 7:57 AM Advance Directives and Livin g Will 02/26/2019 1:08 PM Documents on File Type Date Recorded Patient Tree Faller Expl anation Advance Directives and Livin g Will 03/05/2019 2:27 PM Advance Directives and Livin g Will 02/26/2019 1:08 PM Documents on File Type Date Recorded Patient Tree Faller Expl anation Power of Check Out Clerk Power of Check Out Clerk 07/28/2019 6:13 PM Latest Code Status on File Code Status Date Activated Date Inactivated Comments Full Code 07/08/2019 10:24 AM Documents on File Type Date Recorded Patient Tree Faller Expl anation Power of Check Out Clerk Power of Check Out Clerk 07/28/2019 6:13 PM Latest Code Status on File Code Status Date Activated Date Inactivated Comments Full Code 07/08/2019 10:24 AM Assessments Diagnosis Cystic mass of pancreas - Pr imary Abnormal MRI Other nonspecific (abnormal) findings on radiological and other examinations of body structure Adrenal mass (HCC) Unspecified disorder of adrenal glands Diagnosis Pancreatic mass Unspecified disease of pancreas Diagnosis Preop examination - Primary Unspecified pre-operative examination Cyst and pseudocyst of pancr eas Diagnosis Acquired cyst of kidney Diagnosis Primary osteoarthritis of right hip Diagnosis Arthritis of right hip- Primary Diagnosis Arthritis of right hip Diagnosis Arthritis of right hip- Primary Diagnosis Arthritis of right hip- Primary Diagnosis Arthritis of right hip- Primary Diagnosis Arthritis of right hip Preop cardiovascular exam Pre-operative cardiovascular examination Sleep apnea, obstructive Obstructive sleep apnea (adult) (pediatric) Hypertension, unspecified type Hyperlipidemia, unspecified hyperlipidemia type Diagnosis Arthritis of right hip- Primary Status post total replacement of right hip Diagnosis Status post total replacement of right hip Diagnosis Arthritis of right hip Diagnosis Myelopathy- Primary Unspecified disease of spinal cord Diagnosis Cervical spondylosis with myelopathy Diagnosis Arthritis of right hip- Primary Diagnosis Arthritis of right hip- Primary Diagnosis Status post total replacement of right hip- Primary Reason for Referral Status Reason Specialty Diagnoses / Procedures Referred By Contact Referred To Contact Authorized Specialty Services Required/[facility] Diagnoses Pancreatic mass Sharan Padilla MD [address] [place] [address] Sherlyn Ni MD [address] [place] [address] Status Reason Specialty Diagnoses / Procedures Referred By Contact Referred To Contact Closed Interventional Radiology / Cardiology Diagnoses Pancreatic mass Ferny Cole MD [address] [facility] [address] [place] [id number] Sharan Padilla MD [address] [place] [address] Status Reason Specialty Diagnoses / Procedures Referred By Contact Referred To Contact Authorized Physical Therapy / Rehabilitation Diagnoses Arthritis of right hip Derek Burns MD [address] [id number] Status Reason Specialty Diagnoses / Procedures Referred By Contact Referred To Contact Authorized Home Health Services Diagnoses Status post total replacement of right hip Derek Burns MD [address] [id number] Status Reason Specialty Diagnoses / Procedures Referre d By Contact Referred To Contact Closed Radiology Diagnoses Arthritis of right hip Procedures CT Hip Right Without Contrast Derek Burns MD [address] [id number] Status Reason Specialty Diagnoses / Procedures Referred By Contact Referred To Contact New Request Neurology Diagnoses Myelopathy Chela Wilcox MD [address] [facility] [address] [place] [address] Sage Diaz DO [address] [place] [address] [place] [address] Status Reason Specialty Diagnoses / Procedures Referre d By Contact Referred To Contact Closed Radiology Diagnoses Cervical spondylosis with myelopathy Procedures MR Cervical Spine Without Contrast Chela Wilcox MD [address] [facility] [address] [place] [address] Specialty Diagnoses / Procedures Referred By Contac t Referred To Contact Diagnoses Localized edema Pain of left calf Procedures Ultrasound duplex venous leg left Shay Teague Jr., DPM [address] [place] [address] [place] [address] [place] [address] Phone: [phone] Referral ID Status Reason Start Date Expiration Date Visits Requested Visits Authorized [id number] New Request Patient Preference 11/20/2023 11/19/2024 1 1 Specialty Diagnoses / Procedures Referred By Contac t Referred To Contact Cardiology Diagnoses Localized edema Pain in left lower leg Procedures Lower extremity venous duplex left Shay Teague DPM [address] [place] [address] Referral ID Status Reason Start Date Expiration Date Visits Requested Visits Authorized [id number] Authorized Perform Procedure 11/20/2023 11/19/2024 1 1 History of Present Illness * Sharan Padilla MD - 07/16/2018 11:10 AM EDT Formatting of this note may be different from the original. OFFICE CONSULTATION NOTE [facility] [address] ([address]) [facility] [address] [facility] [address] Physicians: Anjana Pride MD (Family); Ferny Cole MD (Referring) Subjective: Valorie Bean is a 68 y.o. female seen in the office today for evaluation of a cystic pancreatic lesion. HPI: Ms. Bean is a 68 year old female with past medical history of asthma, obesity, TU on CPAP, hypertension, hyperlipidemia, and kidney stones. Patient reports the onset of left flank pain in August [address] which [address] CT imaging of the abdomen and pelvis. This confirmed a partially obstructive distal left ureteral calculus which was treated by lithotripsy in [place] [address] imaging also revealed an indeterminant left adrenal nodule as well as a cystic lesion of the pancreas. More recently patient underwent MRI imaging of the abdomen with and without contrast on 05/15/2018 to characterize the left adrenal nodule. The left adrenal nodule measured 2.5 x 1.8 cm andhad imaging characteristics consistent with a lipid rich adenoma. MRI also redemonstrated a 3.0 x 2.4 cm cystic lesion in the mid to distal pancreatic body, with possible mild peripheral enhancement.The lesion was questionably larger than on the previous CT although cross modality comparison is somewhat limited. The presence of questionable enlargement and enhancement of the pancreatic lesion raised concern for a mucinous cystic neoplasm. Patient has therefore been referred to my office for further evaluation of this cystic lesion including possible percutaneous biopsy. In clinic today, Ms. Bean complains of chronic low back pain with sciatica. She denies abdominal pain. She denies flank pain. No chest pain. No fevers or chills. No weight loss or change in appetite. No changes in bowel habits. No respiratory complaints. She reports no history of pancreatitis. Assessment & Plan: Pancreatic mass Ms. Bean is a 68-year-old female with incidentally discovered cystic pancreatic lesion. This measures up to 3 cm on MR imaging and exhibits questionable peripheral enhancement. The lesion may also have slightly increased in size from a CT scan acquired in August 2017. On my review of the imaging, this appears to represent a unilocular lesion. The rim does appear to enhance on postcontrast images, but this appears largely smooth. I do not appreciate definite solid mass. While the imaging characteristics favor a benign entity, I cannot entirely exclude the possibility of an IPMN or a mucinous cystic neoplasm. This case consists of a cystic pancreatic lesion measuring up to 3 cm, with no definite solid mass component, imaging features which are not classic for a serous cystadenoma, and no history of pancreatitis. Recommendations suggest that the next step in the workup of this lesion should be evaluationwith endoscopic ultrasound and possible FNA. Percutaneous CT-guided biopsy of this lesion will likely prove more risky and have lower diagnostic yield than EUS for several reasons. These include the deep location of the lesion 12-13 cm from the skin, the necessity of the needle to traverse either the liver or the stomach to get to the target, the lack of a solid component to target, and poor visualization of the lesion on noncontrast CT. I discussed all this with the patient and her who appeared to understand the conversation. I offered the patient the choice of a referral to a gastroenterology specialist in [place] or CT-guided percutaneous biopsy of the lesion by myself here in [place]. Patient has elected for GI referral. I have placed a referral to Dr. Ni at [facility], who evidently specializes in pancreatic disease and endoscopic ultrasound. Ms. Bean may see me on an as-needed basis. Follow Up Ordered: Return if symptoms worsen or fail to improve. Prior to Admission medications Medication Sig Start Date End Date Taking? Authorizing Provider amLODIPine (NORVASC) 5 MG tablet daily . 06/20/18 Yes Historical Provider, ascorbic acid, vitamin C, (vitamin C) 1000 MG tablet Take 1,000 mg by mouth daily. Yes Historical Provider, aspirin 81 MG EC tablet Take 162 mg by mouth at bedtime. Yes Historical Provider, atenolol (TENORMIN) 50 MG tablet 2 (two) times a day . 06/25/18 Yes Historical Provider, atorvastatin (LIPITOR) 10 MG tablet daily . 05/13/18 Yes Historical Provider, calcium citrate/vitamin D3 (CITRACAL REGULAR ORAL) Take 1,200 mg by mouth daily. Yes Historical Provider, doxazosin (CARDURA) 2 MG tablet daily . 04/12/18 Yes Historical Provider, losartan-hydrochlorothiazide (HYZAAR) 100-25 mg per tablet daily . 03/30/18 Yes Historical Provider, multivitamin (multivitamin) per tablet Take 1 tablet by mouth daily. Yes Historical Provider, triamcinolone (KENALOG) 0.1 % cream APPLY TO AFFECTED AREA 3 TIMES DAILY NEEDED FOR RASH 16Yes Historical Provider, VENTOLIN HFA 90 mcg/actuation inhaler 2 puffs 4 (four) times a day as needed. 06/16/18 Yes Historical Provider, Histories: Past Medical History: Diagnosis Date Arthritis Asthma Bladder prolapse, female, acquired Cataracts, bilateral Hyperlipidemia Hypertension Lumbar disc herniation Morbid obesity (HCC) Ovarian cyst Pancreatic cyst Sciatica Sleep apnea CPAP Ureteral stone UTI (urinary tract infection) Past Surgical History: Procedure Laterality Date APPENDECTOMY COLONOSCOPY 08/21/2016 CYSTO Left 09/18/2017 with retrograde pyelogram placement of stent....Dr. Tovar CYSTO Left 10/09/2017 ureteral stone, removal of double J stent, semirigid ureteroscopy, holmium laser lithotripsy of thestone, removal of the stone fragments with the basket, and placement of double J stent....Dr. Tovar CYSTOCELE REPAIR 04/30/2018 Sling procedure with mesh.....Dr. Boston DILATION AND CURETTAGE OF UTERUS 1977 HYSTERECTOMY VAGINAL 1987 with vaginectomy KNEE SURGERY Right 1993 scope SALPINGOOPHORECTOMY Bilateral 1989 TUBAL LIGATION Family History Problem Relation Age of Onset Colon cancer Mother Hypertension Mother Colon cancer Father Hypertension Father Other Father Retinapigmentosa Hypertension Brother Tuberculosis Maternal Grandfather Social History Substance Use Topics Smoking status: Never Smoker Smokeless tobacco: Never Used Alcohol use No Allergies Allergen Reactions Lisinopril Hives Sulfamethoxazole-Trimethoprim Diarrhea Biaxin [Clarithromycin] Rash Review of Systems Constitution: Negative for chills, fever, malaise/fatigue, night sweats, weight gain and weight loss. HENT: Negative for congestion, ear pain and sore throat. Eyes: Negative for blurred vision, double vision, pain and visual disturbance. Cardiovascular: Negative for chest pain, claudication, dyspnea on exertion, leg swelling, orthopneaand palpitations. Respiratory: Negative for cough, hemoptysis and shortness of breath. Hematologic/Lymphatic: Negative for bleeding problem. Does not bruise/bleed easily. Skin: Negative for dry skin, itching and rash. Musculoskeletal: Positive for back pain (sciatica). Negative for arthritis, joint pain and muscle weakness. Gastrointestinal: Negative for abdominal pain, change in bowel habit, constipation, diarrhea, hematochezia, melena, nausea and vomiting. Genitourinary: Negative for dysuria, frequency, hematuria, nocturia and urgency. Neurological: Negative for focal weakness, headaches, numbness, paresthesias and sensory change. Psychiatric/Behavioral: Negative for depression. The patient does not have insomnia and is not nervous/anxious. Overview of Problems Addressed: Problem Pancreatic Mass Objective: Vitals: BP 131/83 (BP Location: Left arm, Patient Position: Sitting, BP Cuff Size: X- large Adult) Pulse 60 Resp 16 Ht 5' 2 Wt 95.7 kg (210 lb 14.4 oz) BMI 38.57 kg/m Physical Exam Constitutional: She is oriented to person, place, and time. She appears well- developed and well-nourished. No distress. HENT: Head: Normocephalic and atraumatic. Nose: Nose normal. Eyes: Conjunctivae, EOM and lids are normal. Right eye exhibits no discharge. Left eye exhibits no discharge. No scleral icterus. Neck: Normal range of motion. Neck supple. Carotid bruit is not present. No thyromegaly present. Cardiovascular: Normal rate, regular rhythm and normal pulses. Exam reveals no gallop and no friction rub. No murmur heard. Pulmonary/Chest: Effort normal and breath sounds normal. No respiratory distress. She has no wheezes. She has no rales. Abdominal: Soft. Bowel sounds are normal. She exhibits no distension and no mass. There is no hepatosplenomegaly. There is no tenderness. There is no rebound and no guarding. Musculoskeletal: Normal range of motion. She exhibits no edema. Lymphadenopathy: She has no cervical adenopathy. Neurological: She is alert and oriented to person, place, and time. No cranial nerve deficit. Gait normal. Skin: Skin is warm and intact. No rash noted. No erythema. Psychiatric: She has a normal mood and affect. Her behavior is normal. Vitals reviewed. SNOMED CT(R) 1. Pancreatic mass MASS OF PANCREAS Sharan Padilla MD 08/05/2018 in this encounter* Derek Burns MD - 04/27/2019 12:15 PM EDT Dictation on: 04/27/2019 12:18 PM by: DEREK BURNS [[id number]] documented in this encounter* Meghana Parham, PT - 05/04/2019 1:00 PM EDT [facility] Evaluation Today's Date 05/04/2019 Patient Name: Valorie Bean Date of : 1950 Case Name: Therapy Arthritis of right hip Functional Diagnosis: SNOMED CT(R) 1. Arthritis of right hip ARTHRITIS OF RIGHT HIP Clinical Information: Subjective Referring Diagnosis: Arthritis of right hip History of Present Illness Chief Complaint/ Mechanism of Injury: Patient reports for 2 years she has been getting shots in [employer] because she was told it was a back problem. Patient states she has been going to chiropractorsand on November 11 she cancelled her Cortizone injection due to having an appointment with her chiropractor. Patient states she went to Dr. Olivia and the first shot to her hip didn't work nor did one to her groin. Patient states she saw Dr. Burns on April 27 and she has been scheduled for ahip replacement surgery schedule for due to her hip joint being shot. Patient reports she has been dealing with this hip for 5 years total due to it not being ready for a hip replacement yet. When making a pie or walking she will groan due to the pain. She hates that minor things like bending over and making pies become big things. Previous Treatment for this condition: Injections Prior treatment effectiveness: mild Previous Imaging: X-ray Status: worsening Pain Scale: Average Pain: 4/10 (achy) Pain at highest: 7/10 Aggravating factors: walking, standing Easing factors: sitting Functional Status Functional Limitations: limited mobility, recent decline in level of ADL and standing Premorbid Functional Level: Patient reported Current Functional Level: None Sleep Assessment Sleep disturbance: no Sleep Disturbance Red Flags List: general fatigue. Barriers to Care: None Fall risk screening Fallen 2 or more times in the last 12 months: No Injured as a result of a fall in the last 12 months: No Personal Goals: Get through PT to get to surgery, feel stronger Ride recumbent bike, baking, go out to 's concerts, walking Social History Occupation: retired Home environment: house Gnosticist, social, or cultural considerations to be made aware of before starting treatment: No Lumbar Spine Gait: antalgic and decreased jimbo Comments: R hip hike, limp during ambulation Hip Right Hip Tenderness: Increased facilitation of R quadricep, hip flexors, ITB, HS, Piriformis Range of Motion: IR Active: 31 ER Active: 22 Muscle Strength: Flexion: 4 (inceased pain) Abduction: 4 (inceased pain) Adduction: 4 Special Tests Sean: Positive Monty: Positive Vince: Positive Scour: Negative Left Hip Range of Motion: IR Active: 41 ER Active: 24 Muscle Strength: Flexion: 4+ Abduction: 4+ Adduction: 4+ Knee Right Knee Muscle Strength: Flexion: 4+ (inceased pain) Extension: 4+ (inceased pain) Left Knee Muscle Strength Flexion: 5 Extension: 5 Ankle/Foot Right Ankle/Foot Muscle Strength: DorsiFlexion: 5 Plantar Flexion: 5 Left Ankle/Foot Muscle Strength: DorsiFlexion: 5 Plantar Flexion: 5 Treatments: Physical Therapy Exercise Log - 05/04/19 [id number] OTHER Notes Meghana 10/04 1:15-1:45 Therapeutic Exercise (38966) Intervention Pirifromis stretch x30 Parameters Scifit (A) Intervention Shuttle squat (A) Parameters HS stretch (A) Intervention Quadricep stretch (A) Manual Therapy (78158) Intervention Hip OA DN protocol (A) Parameters STM R piriformis, ITB, hip ADD (A) PT Treatment Times Total Treatment Time 30 Treatment Plan: Frequency of Visits: twice per week Duration: 6 weeks Interventions: Therapeutic Exercise, Neuromuscular Re-Education, Manual Therapy, Therapeutic/ Functional Activities, Gait Training, Self Care, Hot/Cold Pack, Electrical Stimulation, Ultrasound, Iontophoresis, Vasopneumatic and dry needling. Rehab Potential: good Goals: Physical Therapy Ortho Goals: 1. Patient reports their primary goal is to be able to get stronger for surgery. 2. Patient will safely, correctly, and independently demonstrate the ability to perform a progressive HEP to achieve maximal rehabilitation potential and prevent this condition from recurring. 3. Patient will demonstrate 4+/5 hip flexion strength in order to be able to negotiate a flight of stairs. 4. Patient will demonstrate increased muscle mobility in order to be able to drive for 30 minutes with 0-2/10 pain. 5. Patient will demonstrate a 10 degree increase in R hip ER ROM in order to be able to get in and out of a car. IE date: 05/04/2019 Progress report due: 06/15/19 Recert due: visit # 12 Patient Education provided: Education on patient diagnosis, physical therapist POC, and HEP to begin until next visit. Clinical Impression: Patient would benefit from skilled physical therapy in order to be able to increase R hip ROM, increase strength, improve neuromuscular control, increase muscle mobility, and improve joint stabilization in order to return to normal ADLs. Meghana Parham PT State License, [id number] documented in this encounter* Brandy Linn, SCOURER - 05/06/2019 2:30 PM EDT [facility] DAILY TREATMENT NOTE Today's Date 05/06/2019 Patient Name: Valorie Bean Date of : 1950 Current Visit #: 2 Authorized Visits: 100 Case Name: Therapy Arthritis of right hip History: Pre-Treatment Pain Scale: 8 Symptoms: gradually improved Functional Diagnosis: SNOMED CT(R) 1. Arthritis of right hip ARTHRITIS OF RIGHT HIP Clinical Information: Subjective: Reports her hip is very painful today. Objective Moderate antalgic gait on R during stance phase without AD. Pain increase with FWB on Right. No pain with stretches or exercises on plinth. Treatments: Physical Therapy Exercise Log - 05/06/19 1541 OTHER Notes Brandy 11/04 2:40-3:20 Therapeutic Exercise (92445) Intervention Pirifromis stretch x30 Parameters Scifit 8' lv1 Intervention Shuttle squat (A) Parameters HS stretch (A) Intervention Quadricep stretch (A) Parameters hip abd x10 Intervention quad sets x20 Parameters supine hip adduction 2x10 squeeze bolster Intervention supine hip abduction RTB 2x10 clamshells Parameters bridges with RTB 2x10 Manual Therapy (13985) Add more exercises? Yes Manual Therapy (03496) Intervention manual ER/IR stretches. Manual Therapy (63439) Intervention lateral hip mobs 8' Parameters manual hip flexion stretches x10 Functional Activity (29047) Intervention manual hip abduction stretches x10 Parameters long axis distractions 5' PT Treatment Times Therex Total Time 25 Manual Therapy Total Time 15 Direct Treatment Time 40 Total Treatment Time 40 Goals: Physical Therapy Ortho Goals: 1. Patient reports their primary goal is to be able to get stronger for surgery. 2. Patient will safely, correctly, and independently demonstrate the ability to perform a progressive HEP to achieve maximal rehabilitation potential and prevent this condition from recurring. 3. Patient will demonstrate 4+/5 hip flexion strength in order to be able to negotiate a flight of stairs. 4. Patient will demonstrate increased muscle mobility in order to be able to drive for 30 minutes with 0-2/10 pain. 5. Patient will demonstrate a 10 degree increase in R hip ER ROM in order to be able to get in and out of a car. IE date: 05/04/2019 Progress report due: 06/15/19 Recert due: visit # 12 Patient Education: Quality of movement with patient demonstrated understanding. Post-Treatment Pain Scale: 6 Assessment: Patient had an expected response to treatment. Skilled Intervention demonstrated by modifications of treatment per exercise log including increased load and safety interventions per exercise log. Progress towards goals as expected. Plan for Next Visit: Treatment Visit with focus on ROM and pain control Brandy Linn PTA STATE LICENSE, [id number] documented in this encounter* Brandy Linn PTA - 05/15/2019 1:45 PM EDT [facility] DAILY TREATMENT NOTE Today's Date 05/15/2019 Patient Name: Valorie Bean Date of : 1950 Current Visit #: 4 Authorized Visits: 100 Case Name: Therapy Arthritis of right hip History: Pre-Treatment Pain Scale: 2 Symptoms: gradually improved Functional Diagnosis: 1. Arthritis of right hip Clinical Information: Subjective: reports her hip is always in pain. Objective moderate antalgic gait on Right during stance phase. Increased tenderness along Glute andGT area. Treatments: Physical Therapy Exercise Log - 05/15/19 1433 OTHER Notes Brandy 01/02 2:00-2:30 Therapeutic Exercise (39019) Intervention -- Parameters Scifit 8' lv1 Intervention Shuttle squat (A) Parameters HS stretch (A) Intervention Quadricep stretch (A) Parameters hip abd x10 Intervention quad sets x20 Manual Therapy (63037) Intervention Hip OA DN protocol (A) Parameters STM R piriformis, ITB, hip ADD 10' Add more exercises? Yes Manual Therapy (36445) Intervention manual ER/IR stretches. Manual Therapy (99859) Intervention lateral hip mobs 8' Parameters manual hip flexion stretches x10 Functional Activity (28447) Parameters long axis distractions 5' PT Treatment Times Therex Total Time 10 Manual Therapy Total Time 20 Direct Treatment Time 30 Total Treatment Time 30 Goals: Physical Therapy Ortho Goals: 1. Patient reports their primary goal is to be able to get stronger for surgery. 2. Patient will safely, correctly, and independently demonstrate the ability to perform a progressive HEP to achieve maximal rehabilitation potential and prevent this condition from recurring. 3. Patient will demonstrate 4+/5 hip flexion strength in order to be able to negotiate a flight of stairs. 4. Patient will demonstrate increased muscle mobility in order to be able to drive for 30 minutes with 0-2/10 pain. 5. Patient will demonstrate a 10 degree increase in R hip ER ROM in order to be able to get in and out of a car. IE date: 05/04/2019 Progress report due: 06/15/19 Recert due: visit # 12 Patient Education: Quality of movement with patient demonstrated understanding. Post-Treatment Pain Scale: 3 Assessment: Patient had an expected response to treatment. Skilled Intervention demonstrated by modifications of treatment per exercise log including increased intensity and safety interventions per exercise log. Progress towards goals as expected. Plan for Next Visit: Treatment Visit with focus on ROM and pain control Brandy Linn PTA STATE LICENSE, [id number] documented in this encounter* Meghana Parham, PT - 05/18/2019 1:45 PM EDT [facility] OUTPATIENT REH[facility]IL[facility]ATION DAILY TREATMENT NOTE Today's Date 05/18/2019 Patient Name: Valorie Bean Date of : 1950 Current Visit #: 5 Authorized Visits: 100 Case Name: Therapy Arthritis of right hip History: Pre-Treatment Pain Scale: 6 Symptoms: stabilized Functional Diagnosis: 1. Arthritis of right hip Clinical Information: Subjective: Patient was 15 minutes late to her appointment. Patient reports her hip continues to have increased pain and discomfort. She has not noticed any differences since beginning physical therapy. Objective: trailed DN to R hip Treatments: Physical Therapy Exercise Log - 05/18/19 1536 OTHER Notes Meghana 02/01 2:00-2:45 Therapeutic Exercise (22018) Parameters Scifit 3' lv1 Intervention Shuttle squat (A) Parameters HS stretch (A) Intervention Quadricep stretch (A) Parameters hip abd Intervention quad sets Manual Therapy (53224) Intervention Deep palpation and mobilization R hip musculature 10' Parameters STM R piriformis, ITB, hip ADD Add more exercises? Yes Manual Therapy (44917) Intervention manual ER/IR stretches. Manual Therapy (64451) Intervention lateral hip mobs Parameters manual hip flexion stretches Functional Activity (73246) Parameters long axis distractions Additional Exercises Add more exercises? Yes Modalities Modalities Electrical Stim - Unattended Parameters 23' 4 Hz Increased intensity per patient tolerance PT Treatment Times Therex Total Time 3 Manual Therapy Total Time 12 Modalities Total Time 23 Direct Treatment Time 38 Total Treatment Time 45 Goals: Physical Therapy Ortho Goals: 1. Patient reports their primary goal is to be able to get stronger for surgery. 2. Patient will safely, correctly, and independently demonstrate the ability to perform a progressive HEP to achieve maximal rehabilitation potential and prevent this condition from recurring. 3. Patient will demonstrate 4+/5 hip flexion strength in order to be able to negotiate a flight of stairs. 4. Patient will demonstrate increased muscle mobility in order to be able to drive for 30 minutes with 0-2/10 pain. 5. Patient will demonstrate a 10 degree increase in R hip ER ROM in order to be able to get in and out of a car. IE date: 05/04/2019 Progress report due: 06/15/19 Recert due: visit # 12 Patient Education: Quality of movement, Verbal HEP and HEP Modification with patient verbalized understanding. Post-Treatment Pain Scale: 4 Assessment: Patient had an expected response to treatment. Written and verbal consent were obtainedfrom patient before starting treatment. Patient was placed in L side lying on the table with arms in a comfortable position per patient preference. Six needles were placed into ITB, Gluteal Jaylan, Gluteal medius, and gluteal minimus at a depth of 75 - 125 mm due to patient's increased girth. Manual twisting needle manipulation was performed at all levels until patient noticed increased muscle tightening. Then electrical stimulation was placed between needles in ITB and in a destiny-cross pattern with gluteal muscles with the current running parallel with the muscles. Electrical stimulation was used for 22 minutes with increases of intensity every 4 minutes per patient tolerance. Highest electrical stimulation achieved was 5. [place] with then mechanically stimulated via twisting and left in for 2 additional minutes before being taken out. There were no bleeding at removal of needles. During treatment patient reported mild discomfort laying on her L hip. After treatment patient states there is maybe some decreased hurt. Patient had no adverse effects to needling at this time and was told to call the physical therapist if they notices any difficulties or any new changes. Skilled Intervention demonstrated by modifications of treatment per exercise log including increased mobility, assessment of patient's response and modalities as indicated and safety interventions per exercise log. Progress towards goals as expected. Plan for Next Visit: Treatment Visit with focus on increasing R hip muscle mobility. Meghana Parham PT State License, [id number] documented in this encounter* Hemant Gamble MD - 06/12/2019 1:30 PM EDT OFFICE CONSULTATION NOTE [facility] [address] [facility] [address] [facility] [id number] Physicians: Anjana Pride MD (Family); Derek Burns,* (Referring) Subjective: Valorie Bean is a 68 y.o. female seen in the office today for Pre-op Exam (rt THR. Rishi performing 07/08) . HPI: The patient is a pleasant 68-year-old obese female with a past medical history significant for hypertension and hyperlipidemia. She also has a history of pancreatic cyst which was benign by biopsy. She is here today for preoperative clearance for proposed right total hip replacement surgery. The patient denies any anginal type chest discomfort. Her breathing is baseline. She does have obstructive sleep apnea and is compliant with CPAP therapy. She denies any orthopnea, paroxysmal nocturnal dyspnea, syncope, or near syncope. Her preoperative EKG was normal. She denies any prior cardiac history. Assessment & Plan: Preop cardiovascular exam The patient denies any anginal type chest discomfort. Her EKG is normal. She has no prior cardiac history. Given her paucity of symptoms and unremarkable EKG, I do not believe that further cardiac testing is indicated. She should be an acceptable risk for surgery from a cardiovascular standpoint. Sleep apnea, obstructive She is strictly compliant with CPAP therapy. Hypertension Her blood pressure is under excellent control on current medical therapy. She does have some mild lower extremity edema. This could certainly be exacerbated by amlodipine. This can be addressed by primary care. Hyperlipidemia She is on low-dose atorvastatin. Her lipids are followed through primary care. Follow Up Ordered: Return if symptoms worsen or fail to improve. Histories: Past Medical History: Diagnosis Date Arthritis Asthma Back pain Bladder prolapse, female, acquired HAD SURG. Cataracts, bilateral small Hyperlipidemia Hypertension Lumbar disc herniation Morbid obesity (HCC) Nephrolithiasis Ovarian cyst Pancreatic cyst Sciatica Sleep apnea CPAP Sleep apnea, obstructive cpap Ureteral stone UTI (urinary tract infection) Past Surgical History: Procedure Laterality Date APPENDECTOMY COLONOSCOPY 08/21/2016 CYSTO Left 09/18/2017 with retrograde pyelogram placement of stent....Dr. Tovar CYSTO Left 10/09/2017 ureteral stone, removal of double J stent, semirigid ureteroscopy, holmium laser lithotripsy of thestone, removal of the stone fragments with the basket, and placement of double J stent....Dr. Tovar CYSTOCELE REPAIR 04/30/2018 Sling procedure with mesh.....Dr. Boston DILATION AND CURETTAGE OF UTERUS 1977 EGD ENDOSCOPIC ULTRASOUND EXAM N/A 08/26/2018 Procedure: EUS WITH ANES.; Surgeon: Reinaldo Zamorano MD; Location: [facility]; Service: Gastroenterology HYSTERECTOMY HYSTERECTOMY VAGINAL 1987 with vaginectomy KNEE SURGERY Right 1993 scope, arthritis clean out SALPINGOOPHORECTOMY Bilateral 1989 TUBAL LIGATION Family History Problem Relation Age of Onset Colon cancer Mother Hypertension Mother Colon cancer Father Hypertension Father Other Father Retinapigmentosa Hypertension Brother Other Brother many medical problems Tuberculosis Maternal Grandfather Social History Tobacco Use Smoking status: Never Smoker Smokeless tobacco: Never Used Substance Use Topics Alcohol use: No Drug use: No Current Outpatient Medications Medication Sig Dispense Refill amLODIPine (NORVASC) 5 MG tablet Take 5 mg by mouth daily . ascorbic acid, vitamin C, (vitamin C) 1000 MG tablet Take 1,000 mg by mouth daily. aspirin 81 MG EC tablet Take 162 mg by mouth at bedtime. atenolol (TENORMIN) 50 MG tablet Take 50 mg by mouth 2 (two) times a day . atorvastatin (LIPITOR) 10 MG tablet Take 10 mg by mouth nightly . calcium citrate/vitamin D3 (CITRACAL REGULAR ORAL) Take 1,200 mg by mouth daily. doxazosin (CARDURA) 2 MG tablet Take 2 mg by mouth daily . losartan-hydrochlorothiazide (HYZAAR) 100-25 mg per tablet Take 1 tablet by mouth daily . multivitamin (multivitamin) per tablet Take 1 tablet by mouth daily . triamcinolone (KENALOG) 0.1 % cream APPLY TO AFFECTED AREA 3 TIMES DAILY NEEDED FOR RASH UNABLE TO FIND CPAP therapy at night . VENTOLIN HFA 90 mcg/actuation inhaler 2 puffs 4 (four) times a day as needed. 0 omeprazole (PRILOSEC OTC) 20 MG tablet Take 1 (one) tablet (20 mg total) by mouth 2 (two) times a day . 60 tablet 3 No current facility-administered medications for this visit. Allergies Allergen Reactions Lisinopril Hives Sulfamethoxazole-Trimethoprim Diarrhea Biaxin [Clarithromycin] Rash Review of Systems Constitution: Negative for diaphoresis, malaise/fatigue, weight gain and weight loss. HENT: Negative for hearing loss, nosebleeds and tinnitus. Eyes: Negative for blurred vision and visual disturbance. Cardiovascular: Positive for leg swelling. Negative for chest pain, claudication, cyanosis, dyspneaon exertion, irregular heartbeat, near-syncope, orthopnea, palpitations, paroxysmal nocturnal dyspnea and syncope. Respiratory: Negative for hemoptysis, shortness of breath and snoring. Endocrine: Negative for cold intolerance and heat intolerance. Hematologic/Lymphatic: Does not bruise/bleed easily. Skin: Negative for flushing, poor wound healing and rash. Musculoskeletal: Positive for joint pain. Negative for back pain, muscle weakness and myalgias. Gastrointestinal: Negative for abdominal pain, change in bowel habit, melena, nausea and vomiting. Genitourinary: Negative for decreased libido and hematuria. Neurological: Negative for loss of balance and numbness. Psychiatric/Behavioral: Negative for memory loss. The patient is not nervous/anxious. Overview of Problems Addressed: Problem Preop Cardiovascular Exam Sleep Apnea, Obstructive cpap Hypertension Hyperlipidemia Objective: Physical Exam Constitutional: She is oriented to person, place, and time. She appears well- developed and well-nourished. HENT: Head: Normocephalic. Eyes: Pupils are equal, round, and reactive to light. Conjunctivae and EOM are normal. No scleral icterus. Neck: Normal range of motion. Neck supple. No JVD present. No tracheal deviation present. No thyromegaly present. Cardiovascular: Normal rate, regular rhythm, S1 normal, S2 normal and intact distal pulses. Exam reveals no friction rub. Murmur heard. She has a soft systolic ejection murmur heard best at the upper right sternal border. Pulmonary/Chest: Breath sounds normal. No respiratory distress. She has no wheezes. She has no rales. Abdominal: Soft. Bowel sounds are normal. She exhibits no distension and no mass. There is no hepatosplenomegaly. There is no tenderness. Truncal obesity. Musculoskeletal: Normal range of motion. General: Edema present. Comments: 1-2+ bilateral lower extremity edema which appears to be chronic. Lymphadenopathy: She has no cervical adenopathy. Neurological: She is alert and oriented to person, place, and time. Skin: Skin is warm and dry. Psychiatric: She has a normal mood and affect. Her behavior is normal. Vitals: Vitals: 06/12/19 1310 BP: (!) 107/53 BP Location: Left arm Patient Position: Sitting Pulse: 63 SpO2: 95% Weight: 95.6 kg (210 lb 11.2 oz) Height: 5' 3.5 Orders Placed This Encounter UNABLE TO FIND Thank you for allowing me to assist you in the cardiovascular care of this patient. Please don't hesitate to contact me if you have any questions regarding these thoughts. Hemant Gamble MD documented in this encounter* Rosalind Madison MSW CAR [employer]ERRY MASTER - 07/09/2019 10:03 AM EDT COMPLEX DISCHARGE Date: 07/09/2019 Time: 10:03 AM Patient Name: Valorie Bean Date of : 1950 Sex: Female Patient has discharge order. Patient discharging home with [facility] and family support. No further social service needs indicated or requested. Discharge Plan Shared UM/CC and RN Source of Information: Patient Living Arrangements: Spouse/significant other Support Systems: Spouse/significant other Functional Status: Independent Type of Residence: Private residence Prior to Admission Home Care Services: No Insurance Coverage for Prescriptions: Yes [facility] Disposition D/C Disposition: Home Health Care Services Related to Current Admission?: Yes Agency/Destination: [facility] Care Needs : Home health care Transportation Type: Auto Options Reviewed: List provided, Explained services/benefits Reason for Choice: Patient/Family prefernce * Derek Burns MD - 07/09/2019 9:56 AM EDT Orthopedic Total Hip Progress Note Assessment/Plan: Status Post right Total Hip Arthroplasty: Doing well postoperatively. Discharge today, Return to Clinic: 2 weeks LOS: 1 day Subjective: Post-Operative Day: 1 Status Post right Total Hip Arthroplasty Systemic or Specific Complaints:No Complaints Objective: Vital signs in last 24 hours: Temp: [97 F (36.1 C)-98 F (36.7 C)] 97.8 F (36.6 C) Heart Rate: [56-81] 81 Resp: [12-18] 14 BP: (99-161)/(54-78) 125/65 General: alert, appears stated age and cooperative Wound: Wound clean and dry no evidence of infection. Motion: Painless Range of Motion DVT Exam: No evidence of DVT seen on physical exam. Data Review CBC: Lab Results Component Value Date WBC 6.75 06/09/2019 WBC 9.2 04/16/2018 RBC 4.17 06/09/2019 HGB 9.8 (L) 07/09/2019 HGB 11.8 05/01/2018 HCT 30.0 (L) 07/09/2019 HCT 34.8 05/01/2018 PLT 222 06/09/2019 PLT 307 04/16/2018 * Jenifer Rincon, SCOURER - 07/09/2019 9:54 AM EDT Physical Therapy PHYSICAL THERAPY TREATMENT NOTE Skilled Therapy Needs After Discharge Anticipate Resolution of Current Assessment Limitations Including: Pain Are Skilled Therapy Services Needed After Discharge: Yes Intensity of Skilled Therapy: 2-3 days per week Anticipated Duration of Skilled Therapy: Duration 7 - 10 days DME Recommendation: Wheeled walker DME Rationale: Patient's condition creates an increased risk of safety hazard without recommended equipment Rehab Potential: Good Outcomes Measures Prior Function - Basic Mobility % Impaired: AM-PAC - Basic Mobility Raw Score: 18 Points AM-PAC - Basic Mobility % Impaired: 40.47% functionally impaired Activity Tolerance Therapy Precautions Weight Bearing Status: WFL General Rehab Precautions: Fall risk Released to nursing: assist x 1 with ww Balance Bed Mobility Supine to Sit: Stand by assistance Sit to Supine: Stand by assistance Skilled Intervention: Pt completed transfer onto and off of plinth with sba. Pt requiring instruction and completed transfer onto and off of raised hospital bed. Pt requiring increased education to scoot self back on bed and then angle hips to allow ease of movement with raising Rt LE onto the bed.Pt able to comply following further instruction. Transfers Sit to Stand: Supervision Skilled Intervention: Pt requiring education for hand placement to improve safety with transfers. Gait/Locomotion Gait Assistance: Stand by assistance Assistive Device: Wheeled walker Distance: 150 Feet Pattern: Step through, R Decreased stance time, R decreased step length, L decreased step length Curbs/Ramps: Stand by assistance Stair Management Technique: Step to pattern Stair Management Assistance: Stand by assistance Number of Stairs: 1 Skilled Intervention: Pt demonstrates slow gait pace with decreased stance time to Rt LE. Pt with decreased step length Rt and flexed posture. Pt requiring cueing for erect posture and UE wt bearing during stance to Rt LE. Pt instructed on and performed curb step as at home with ww and sba x 3 attempts to improve comfort and safety. Pt cued for stair navigation process during each attempt. Exercise Total Hip: 20 reps Pt completed lalitha LE therapeutic exercise x 20 reps for functional strengthening:SAQ, LAQ, quad sets, and ankle pumps. Pt requiring cueing to perform exercises correctly. Home Living Type of Home: House Home Layout: One level, Stairs to enter with rails(1 BENI with 1 HR) Bathroom Shower/Tub: Tub/shower unit Bathroom Toilet: Raised Bathroom Equipment: Grab bars in shower, Shower chair Bathroom Accessibility: Accessible Home Equipment: Wheeled Walker, Cane Prior Level of Function Level of [place]: Independent with ADLs and functional transfers, Independent with homemaking with ambulation Lives With: Spouse Receives Help From: Family Vocational: Retired Comments: Ind at PLOF with no AD For complete objective data, detailed plan of care and patient education refer to: PT EVALUATION flow sheet, PT TREATMENT flow sheet, patient Plan of Care, Plan of Care progress note, and Patient Education. This note stands as the current Discharge Summary upon patient discharge from the hospital or completion of Physical Therapy Plan of Care. * Vesta Paredes OTA - 07/09/2019 9:26 AM EDT Occupational Therapy OCCUPATIONAL THERAPY TREATMENT NOTE Skilled Therapy Needs After Discharge Anticipate Resolution of Current Assessment Limitations Including: Pain Are Skilled Therapy Services Needed After Discharge: No DME Recommendation: Adaptive equipment kit DME Rationale: Patient's condition creates an increased risk of safety hazard without recommended equipment Rehab Potential: Good Outcomes Measures Prior Function Daily Activity: Raw Score: 24 Prior Function Daily Activity % Impaired: 0% functionally impaired AM-PAC Daily Activity: Raw Score: 22 AM-PAC Daily Activity % Impaired: 25.80% functionally impaired Activity Tolerance Fair- Therapy Precautions Weight Bearing Status: WFL General Rehab Precautions: Fall risk Cognition Overall Cognitive Status: Within Functional Limits Arousal/Alertness: Appropriate responses to stimuli Orientation Level: Oriented X4 Executive functioning: WFL Safety Judgment: Good awareness of safety precautions Problem Solving: Able to problem solve independently Attention: Attends to distracted environment Hearing Status: WFL Social Interaction: WFL Skilled Intervention: Followed all commands throughout session. ADL/IADL Grooming : Modified independence UE Dressing: Modified independence LE Dressing: Modified independence(with AE) Skilled Intervention: Managed socks and pants over feet with use of AE. Pt declined AE for home reporting My will help me. Did provide education where AE could be purchased. Functional Transfers Sit to Stand: Supervision Tub Transfers: Contact guard Skilled Intervention: Utilized grab bars, has at home, to assist with stepping in/out of tub. Pt has chair in place as well. SBA to amb to and from shower area and sink with wheeled walker. Home Living Type of Home: House Home Layout: One level, Stairs to enter with rails(1 BENI with 1 HR) Bathroom Shower/Tub: Tub/shower unit Bathroom Toilet: Raised Bathroom Equipment: Grab bars in shower, Shower chair Bathroom Accessibility: Accessible Home Equipment: Wheeled Walker, Cane Prior Level of Function Level of [place]: Independent with ADLs and functional transfers, Independent with homemaking with ambulation Lives With: Spouse Receives Help From: Family Vocational: Retired Comments: Ind at PLOF with no AD For complete objective data, detailed plan of care and patient education refer to: OT EVALUATION flow sheet, OT TREATMENT flow sheet, patient Plan of Care, Plan of Care progress note, and Patient Education. This note stands as the current Discharge Summary upon patient discharge from the hospital or completion of Occupational Therapy Plan of Care. documented in this encounter* Merline Howard RN - 07/13/2019 4:15 PM EDT Patient identification verified by at least three identifiers prior to case management which included Full Name, Date of and Phone number. Patient agreed to exchange information. This RN explained CM role and purpose for call. Reviewed AVS instructions and medications. Patient is s/p right DIANE. Reports she is doing well. Pain 8/10 and tolerable. Reports she was in unbearable pain prior to surgery and is now only occasionally using Tylenol. Discussed pain control and encouraged patient to increase medication for comfort as well as ice application. Reports dressingintact to hip with a small amount of shadowing noted to superior end. Has been seen by home health nursing and therapy. Encouraged patient to make follow up appointment with PCP. Has not had flu vaccine, education provided. Uses C-pap at HS. Reviewed fall precautions and infection control. Verbalized understanding. Agrees to continued case management. Provided patient with CM phone contact information and encouraged to contact CM if questions or concerns developed. documented in this encounter* Merline Howard RN - 08/04/2019 4:16 PM EST Patient identification verified by at least three identifiers prior to case management which included Full Name, Date of and Phone number. Patient agreed to exchange information. This RN explained CM role and purpose for call. BPCI follow up right hip replacement. Reports she is now ambulating with cane. Patient questions whether she still needs a pillow between legs when laying on her side. Nurse advised she should continue to use the pillow unless directed to not do so by ortho. Denies hip pain at this time. Appetite good. Follows up again with ortho on 08/18. No other needs at this time. documented in this encounter* Derek Burns MD - 08/17/2019 5:20 PM EST Dictation on: 08/17/2019 5:21 PM by: DEREK BURNS [[id number]] documented in this encounter* Brandy Linn PTA - 05/13/2019 3:15 PM EDT [facility] OUT[facility] REH[facility]IL[facility]ATION DAILY TREATMENT NOTE Today's Date 05/13/2019 Patient Name: Valorie Bean Date of : 1950 Current Visit #: 3 Authorized Visits: 100 Case Name: No linked episodes History: Pre-Treatment Pain Scale: 5 Symptoms: rapidly improved Functional Diagnosis: No diagnosis found. Clinical Information: Subjective: Reports her hip is getting more painful each day. Can't sleep at night or get comfortable. Patient arrived 21 minutes late for appointment. Objective Palpable tenderness along GT. STM performed along piriformis with moderate pain increase.Decreased sxs' following lateral mobs and distractions. Treatments: Physical Therapy Exercise Log - 05/13/19 1641 OTHER Notes Brandy 12/02 3:36-4:06 Therapeutic Exercise (64402) Intervention Pirifromis stretch x30 Parameters Scifit 8' lv1 Intervention Shuttle squat (A) Parameters HS stretch (A) Intervention Quadricep stretch (A) Parameters hip abd x10 Intervention quad sets x20 Manual Therapy (90554) Intervention Hip OA DN protocol (A) Parameters STM R piriformis, ITB, hip ADD (A) Add more exercises? Yes Manual Therapy (20977) Intervention manual ER/IR stretches. Manual Therapy (34319) Intervention lateral hip mobs 8' Parameters manual hip flexion stretches x10 Functional Activity (07997) Parameters long axis distractions 5' PT Treatment Times Therex Total Time 15 Manual Therapy Total Time 15 Direct Treatment Time 30 Total Treatment Time 30 Goals: Physical Therapy Ortho Goals: No data was found Patient Education: Quality of movement with patient demonstrated understanding. Post-Treatment Pain Scale: 2 Assessment: Patient had an expected response to treatment. Skilled Intervention demonstrated by modifications of treatment per exercise log including increased load and safety interventions per exercise log. Progress towards goals as expected. Plan for Next Visit: Treatment Visit with focus on pain control Brandy Linn PTA STATE LICENSE, [id number] documented in this encounter* Merline Howard RN - 09/03/2019 11:29 AM EST Patient identification verified by at least three identifiers prior to case management which included Full Name, Date of and Phone number. Patient agreed to exchange information. This RN explained CM role and purpose for call. BPCI outreach s/p right hip surgery. Patient reports she is doing great. Has completed f/u with ortho. Ambulates independently. Has all meds. Reviewed care gaps. Patient denies any further questions or concerns. Provided manager career name and contact information. Patient encouraged to call if questions or concerns arise. No further contact scheduled at this time. documented in this encounter* Brandy Linn PTA - 05/27/2019 1:45 PM EDT [facility] DAILY TREATMENT NOTE Today's Date 05/27/2019 Patient Name: Valorie Bean Date of : 1950 Current Visit #: 7 Authorized Visits: 100 Case Name: Therapy Arthritis of right hip History: Pre-Treatment Pain Scale: 5 Symptoms: gradually worsened Functional Diagnosis: 1. Arthritis of right hip Clinical Information: Subjective: Reports she's not seen any relief from the therapy. Objective Pt. Hasn't met goals. Pain 10/10 with stairs and walking for long distances. Treatments: Physical Therapy Exercise Log - 05/27/19 6602 OTHER Notes Brandy 04/03 1:50-2:25 Therapeutic Exercise (22809) Parameters Scifit 3' lv1 Intervention Shuttle squat (A) Parameters HS stretch (A) Intervention Quadricep stretch (A) Parameters hip abd Intervention quad sets Parameters supine hip adduction 2x10 squeeze bolster Intervention supine hip abduction RTB 2x10 clamshells Manual Therapy (05544) Intervention Deep palpation and mobilization R hip musculature 10' Parameters STM R piriformis, ITB, hip ADD Add more exercises? Yes Manual Therapy (14337) Intervention manual ER/IR stretches. Manual Therapy (93384) Intervention lateral hip mobs Parameters manual hip flexion stretches Functional Activity (03045) Parameters long axis distractions Additional Exercises Add more exercises? Yes PT Treatment Times Therex Total Time 15 Manual Therapy Total Time 20 Direct Treatment Time 35 Total Treatment Time 35 Goals: Physical Therapy Ortho Goals: 1. Patient reports their primary goal is to be able to get stronger for surgery. 2. Patient will safely, correctly, and independently demonstrate the ability to perform a progressive HEP to achieve maximal rehabilitation potential and prevent this condition from recurring. 3. Patient will demonstrate 4+/5 hip flexion strength in order to be able to negotiate a flight of stairs. 4. Patient will demonstrate increased muscle mobility in order to be able to drive for 30 minutes with 0-2/10 pain. 5. Patient will demonstrate a 10 degree increase in R hip ER ROM in order to be able to get in and out of a car. IE date: 05/04/2019 Progress report due: 06/15/19 Recert due: visit # 12 Patient Education: Quality of movement with patient demonstrated understanding. Post-Treatment Pain Scale: 4 Assessment: Patient had an expected response to treatment. Skilled Intervention demonstrated by modifications of treatment per exercise log including increased intensity and safety interventions per exercise log. Progress towards goals as expected. Plan for Next Visit: Discharge Brandy Linn PTA STATE LICENSE, [id number] documented in this encounter* Brandy Linn PTA - 05/22/2019 11:30 AM EDT [facility] DAILY TREATMENT NOTE Today's Date 05/22/2019 Patient Name: Valorie Bean Date of : 1950 Current Visit #: 6 Authorized Visits: 100 Case Name: Therapy Arthritis of right hip History: Pre-Treatment Pain Scale: 3 Symptoms: gradually improved Functional Diagnosis: 1. Arthritis of right hip Clinical Information: Subjective: Reports she was sore the next day after getting the DN. Objective mild antalgic gait during stance phase. Tenderness along R glut and GT with palpation. Treatments: Physical Therapy Exercise Log - 05/22/19 1215 OTHER Notes Brandy 03/04 11:35-12:15 Therapeutic Exercise (00269) Parameters Scifit 3' lv1 Intervention Shuttle squat (A) Parameters HS stretch (A) Intervention Quadricep stretch (A) Parameters hip abd Intervention quad sets Parameters supine hip adduction 2x10 squeeze bolster Intervention supine hip abduction RTB 2x10 clamshells Manual Therapy (45541) Intervention Deep palpation and mobilization R hip musculature 10' Parameters STM R piriformis, ITB, hip ADD Add more exercises? Yes Manual Therapy (85374) Intervention manual ER/IR stretches. Manual Therapy (07538) Intervention lateral hip mobs Parameters manual hip flexion stretches Functional Activity (66777) Parameters long axis distractions Additional Exercises Add more exercises? Yes Modalities Modalities Electrical Stim - Unattended Parameters 23' 4 Hz Increased intensity per patient tolerance PT Treatment Times Therex Total Time 15 Manual Therapy Total Time 25 Direct Treatment Time 40 Total Treatment Time 40 Goals: Physical Therapy Ortho Goals: 1. Patient reports their primary goal is to be able to get stronger for surgery. 2. Patient will safely, correctly, and independently demonstrate the ability to perform a progressive HEP to achieve maximal rehabilitation potential and prevent this condition from recurring. 3. Patient will demonstrate 4+/5 hip flexion strength in order to be able to negotiate a flight of stairs. 4. Patient will demonstrate increased muscle mobility in order to be able to drive for 30 minutes with 0-2/10 pain. 5. Patient will demonstrate a 10 degree increase in R hip ER ROM in order to be able to get in and out of a car. IE date: 05/04/2019 Progress report due: 06/15/19 Recert due: visit # 12 Patient Education: Quality of movement with patient demonstrated understanding. Post-Treatment Pain Scale: 2 Assessment: Patient had an expected response to treatment. Skilled Intervention demonstrated by modifications of treatment per exercise log including increased intensity and safety interventions per exercise log. Progress towards goals as expected. Plan for Next Visit: Treatment Visit with focus on ROM and pain Brandy Linn PTA STATE LICENSE, [id number] documented in this encounter* Derek Burns MD - 07/27/2019 5:13 PM EST Dictation on: 07/27/2019 5:13 PM by: DEREK BURNS [[id number]] documented in this encounter* Salina Gates LPN - 07/15/2019 8:25 AM EDT I spoke david Eugene today and she says she is doing ok. The home care nurse and therapy tell her she is doing great. Her swelling is better w elevation and ice. She denies any constipation/n. She is taking her ASA bid and her Protonix qd. documented in this encounter Instructions Name Dates Details Instructions not documented Name Dates Details Instructions not documented Name Dates Details Instructions not documented Name Dates Details Instructions not documented Chief Complaint 6 MO COPD ECZEMA GERD HTN HL CKCOPD, HTN, HL CK. REV LABSMCW..6 MO FU. WOULD LIKE HANDICAP PLACARD6 MO FU. REV LABSNew patient here for breast and pelvic exam. Patient does not do regular self breast exams and has no concerns at this time. LMP: Hysterectomy. Additional Source Comments INFORMATION SOURCE (unrecogn ized section and content) DATE CREATED AUTHOR AUTHOR'S ORGANIZ ATION 02/11/[address] [facility] DATE CREATED AUTHOR AUTHOR'S ORGANIZ ATION 07/27/2019 [facility] DATE CREATED AUTHOR AUTHOR'S ORGANIZ ATION 08/28/2022 [facility] DATE CREATED AUTHOR AUTHOR'S ORGANIZ ATION 08/28/2022 [facility] DATE CREATED AUTHOR AUTHOR'S ORGANIZ ATION 10/04/[address] [facility] DATE CREATED AUTHOR AUTHOR'S ORGANIZ ATION 04/14/2023 [facility] DATE CREATED AUTHOR AUTHOR'S ORGANIZ ATION 09/09/2023 [facility] DATE CREATED AUTHOR AUTHOR'S ORGANIZ ATION 09/09/2023 [facility] DATE CREATED AUTHOR AUTHOR'S ORGANIZ ATION 10/20/[address] [facility] [place] [place] Amb[facility] DATE CREATED AUTHOR AUTHOR'S ORGANIZ ATION 11/25/2023 [facility] DATE CREATED AUTHOR AUTHOR'S ORGANIZ ATION 12/03/2023 [facility] DATE CREATED AUTHOR AUTHOR'S ORGANIZ ATION 12/04/2023 [facility] ([place]) Reason for Visit (unrecogniz ed section and content) Status Reason Specialty Diagnoses / Procedures Referre d By Contact Referred To Contact Reason Comments Difficulty Walking Reason Comments Physical Therapy Status Reason Specialty Diagnoses / Procedures Referred By Contact Referred To Contact Authorized Physical Therapy / Rehabilitation Diagnoses Arthritis of right hip Derek Burns MD [address] [place] [address] Reason Comments Cystic Mass biopsy Status Reason Specialty Diagnoses / Procedures Referred By Contact Referred To Contact Closed Interventional Radiology / Cardiology Diagnoses Pancreatic mass Ferny Cole MD [address] [facility] [address] [place], [place] [address] Sharan Padilla MD [address] [place] [address] Reason Comments Pre-operative Medical Risk Stratificatio n Status Reason Specialty Diagnoses / Procedures Referre d By Contact Referred To Contact Reason Comments Physical Therapy Arthritis of right h ip Status Reason Specialty Diagnoses / Procedures Referred By Contact Referred To Contact Authorized Physical Therapy / Rehabilitation Diagnoses Arthritis of right hip Derek Burns MD [address] [place] [address] Reason Comments Pre-op Exam rt THR. Rishi per forming 07/08 Status Reason Specialty Diagnoses / Procedures Referred By Contact Referred To Contact Closed Specialty Services Required/Patient 's Best Interest Cardiology Diagnoses Arthritis of right hip Derek Burns MD [address] [place] [address] [place] [address] Status Reason Specialty Diagnoses / Procedures Referre d By Contact Referred To Contact Diagnoses Arthritis of right hip Arthritis of right hip [M16.11] Procedures AK TOTAL HIP ARTHROPLASTY Derek Burns MD [address] [id number] Reason Comments Transition Of Care Initial BPCI outreac h attempt#1 Reason Comments Transition Of Care Bundle f/u Reason Comments Follow-up Wound Check Status Reason Specialty Diagnoses / Procedures Referre d By Contact Referred To Contact Closed Radiology Diagnoses Arthritis of right hip Procedures CT Hip Right Without Contrast Derek Burns MD [address] [place] [address] Reason Comments Transition Of Care Bundle f/u outreach Reason Comments Medicare Annual Wellness Visit Subsequen t 6 mo fu Reason Comments Pain Reason Comments Follow-up 6 mo rev labs Specialty Diagnoses / Procedures Referred By Contac t Referred To Contact Primary Care Diagnoses Primary hypertension Gastroesophageal reflux disease without esophagitis Mixed hyperlipidemia Procedures Follow Up In Primary Care Anjana Pride MD [address] [place] [address] Referral ID Status Reason Start Date Expiration Date Visits Re quested Visits Authorized [id number] Closed 02/26/2023 08/25/2023 1 1 Reason Comments Pre-op Exam L THR Reason Comments Foot Pain Left foot pain.THR w as Oct 29 at [facility] in [facility]. Post op was around 2-19. Symptoms of foot numbness/swelling/pain in all but big toe on L ft. Duration one week Specialty Diagnoses / Procedures Referred By Contac t Referred To Contact Cardiology Diagnoses Localized edema Pain in left lower leg Procedures Lower extremity venous duplex left Shay Teague DPM [address] [place] [address] Referral ID Status Reason Start Date Expiration Date Visits Requested Visits Authorized [id number] Authorized Perform Procedure 11/20/2023 11/19/2024 1 1 Assessment & Plan Note - Sharan Padilla MD - 08/05/2018 2:09 PM ESTAssessment & Plan Note - Hemant Gamble MD - 06/12/2019 1:35 PM EDT Miscellaneous Notes (unrecog nized section and content) Associated Problem(s): Pancreatic mass Ms. Bean is a 68-year-old female with incidentally discovered cystic pancreatic lesion. This measures up to 3 cm on MR imaging and exhibits questionable peripheral enhancement. The lesion may also have slightly increased in size from a CT scan acquired in August 2017. On my review of the imaging, this appears to represent a unilocular lesion. The rim does appear to enhance on postcontrast images, but this appears largely smooth. I do not appreciate definite solid mass. While the imaging characteristics favor a benign entity, I cannot entirely exclude the possibility of an IPMN or a mucinous cystic neoplasm. This case consists of a cystic pancreatic lesion measuring up to 3 cm, with no definite solid mass component, imaging features which are not classic for a serous cystadenoma, and no history of pancreatitis. Recommendations suggest that the next step in the workup of this lesion should be evaluation with endoscopic ultrasound and possible FNA. Percutaneous CT-guided biopsy of this lesion will likely prove more risky and have lower diagnostic yield than EUS for several reasons. These include the deep location of the lesion 12-13 cm from the skin, the necessity of the needle to traverse either the liver or the stomach to get to the target, the lack of a solid component to target, and poor visualization of the lesion on noncontrast CT. I discussed all this with the patient and her who appeared to understand the conversation. I offered the patient the choice of a referral to a gastroenterology specialist in [place] or CT-guided percutaneous biopsy of the lesion by myself here in [place]. Patient has elected for GI referral. I have placed a referral to Dr. Ni at [facility], who evidently specializes in pancreatic disease and endoscopic ultrasound. Ms. Bean may see me on an as-needed basis.in this encounter Associated Problem(s): Hyperlipidemia She is on low-dose atorvastatin. Her lipids are followed through primary care. Associated Problem(s): Hypertension Her blood pressure is under excellent control on current medical therapy. She does have some mild lower extremity edema. This could certainly be exacerbated by amlodipine. This can be addressed by primary care. Associated Problem(s): Sleep apnea, obstructive She is strictly compliant with CPAP therapy. Associated Problem(s): Preop cardiovascular exam The patient denies any anginal type chest discomfort. Her EKG is normal. She has no prior cardiac history. Given her paucity of symptoms and unremarkable EKG, I do not believe that further cardiac testing is indicated. She should be an acceptable risk for surgery from a cardiovascular standpoint. documented in this encounter Poc reviewed Patient education about plan of care provided. Education provided about pain medication regimen, AV foot pumps continued. Plan for discharge is to return home with home health care. Problem: Pain Goal: Manage acute pain Outcome: Partially Met Goal: Manage chronic pain Outcome: Partially Met Goal: Reduced pain sensation Outcome: Partially Met Goal: Achievement of comfort function goal Outcome: Partially Met Problem: Mobility - Impaired Goal: Able to achieve maximum mobility level Outcome: Partially Met Problem: Venous Thromboembolism, Risk of Goal: Absence of venous thromboembolism Outcome: Partially Met Problem: Plan for Discharge Goal: Knowledge of discharge plan and instructions Outcome: Partially Met Patient education provided about influenza and [id number] PREOPERATIVE DIAGNOSIS Right hip degenerative arthrosis. POSTOPERATIVE DIAGNOSIS Right hip degenerative arthrosis. PROCEDURE Minimally invasive robotic assisted right total hip replacement. ANESTHESIA Spinal anesthetic. COMPLICATIONS No intraoperative complications. SPECIMENS Bone. ESTIMATED BLOOD LOSS 200 cc. HISTORY Valorie is a 69-year-old patient who has severe right hip degenerative arthrosis unresponsive to conservative measures. Explained all the risks and complications of surgery, including, but not limited to the risk of infection, bleeding, neurologic or vascular injury, possibility of deep venous thrombosis, pulmonary embolism, myocardial infarction, stroke, or even with surgery. Explained the possibilities of continued pain, stiffness, loss of range of motion, as well as the need for future surgery. Given all the options of anesthetic and elected for a spinal anesthetic. DESCRIPTION OF PROCEDURE Patient was met in the preoperative holding area where the right hip was in fact confirmed to be the appropriate site and marked by myself. Patient was taken to the operative suite, given preoperative Kefzol and gentamicin per protocol, as well as a spinal anesthetic, placed in the left lateral decubitus position. Right hip was then sterilely prepped and draped using a ChloraPrep solution as well as InteguSeal. After sterilization of the right hip, we did our final time-out to confirm that the right hip was in fact the appropriate site. After confirming the right hip, we then went ahead and proceeded forward with making an incision over the iliac crest. At this time, we then went ahead and placed our iliac crest array and synchronized the pelvis with the robot. We then went ahead and did a 10 cm incision over the greater trochanter coursing posteriorly. Iliotibial band and gluteal fascia were then split in line with skin incision. We placed our proximal femoral checkpoint and at this time, synchronized the femur with the robot. After the femur was synchronized, we then went ahead and proceeded forward with doing a posterior approach to the hip removing the piriformis short external rotators. We then removed the femoral head. Osteotomy cut was made. Deep retractors were placed. We then went ahead and proceeded forward with doing robotic-assisted mapping of the acetabulum. After the robotic mapping was completed and all redundant tissue had been removed, we proceeded forward with doing robotic-assisted reaming to a size 46. After the reaming, we did our injection of local anesthetic around the acetabulum. We did antibiotic irrigation. I then went ahead using robotic assistance, placed my size 46 Trident PSL acetabular shell in 25 degrees of anteversion and 40 degrees of lateral opening. After the acetabulum was in, there was excellent security. No screws were added. We then went ahead and proceeded forward with placing our ultra-high molecular weight polyethylene to accept the 32 mm head. After the polyethylene was in place, we went to the femur and settled on a size 2 Accolade TMZF 127-degree angle stem. After the stem was in place, we went ahead and did sequential reductions, settled on a 32 x 0 femoral head. Leg lengths were confirmed. There was excellent position with excellent stability. We then went ahead and did more irrigation, injected a 2nd series of local around the proximal femur. We then went ahead and proceeded forward with placing our final head on the trunnion. Hip was reduced. Leg lengths were equal. Good stability. We then proceeded forward with doing our x-ray to confirm good positioning of all implants with no evidence of a fracture. We did our final copious amounts of antibiotic-impregnated irrigation through the right hip. We then went ahead and proceeded forward with sprinkling 1 g of vancomycin powder throughout the contact surface areas of the right hip and acetabulum. We then went ahead and proceeded forward with closing the piriformis short external rotators using #2 Vicryl. #2 Vicryl was used to reapproximate iliotibial band and gluteal fascia. #2 Vicryl was used to reapproximate deep subcutaneous tissue. 2-0 Vicryl, skin sathya were placed on skin. Exofin as well as a sterile Mepilex dressing was applied. The patient was then taken to PACU without intraoperative complication. D 07/08/2019 10:24 [id number] 07/08/2019 10:50 MCB/MODL Brief Post Operative Note Patient Name: Valorie Bean : 1950 (69 y.o.) Date of Service: 07/08/2019 CSN: [id number] Procedure(s): Right Total Hip Replacement Robotic Pre-Operative Diagnoses: * Arthritis of right hip [M16.11] Post-Operative Diagnoses: * Same as Pre-Op Diagnosis * Arthritis of right hip [M16.11] Surgeon(s) and Role: * Derek Burns MD - Primary Anesthesiologist: Anjana Doe MD SHARED SERVICES AND OUTSOURCING MANAGER: Brittani Francois CRNA Supervisor [employer]: Salma Joel TECHNOLOGIST Vendor Representatives Orientee: Mary Crocker RN Vendor Representatives Preceptor: Dionna Lockhart RN Casework Manager: Amaris Fajardo Scrub Person Preceptor: [facility] Scrub Person Orientee: [facility] Dag[facility] Scrub Person Assist: Meghana Ibrahim RN Operative findings: djd Intra and immediate post-operative complications: none Type of anesthesia used: Spinal Estimated blood loss: 200 mL Estimated urine output: Refer to surgical log Specimen(s): ID Type Source Tests Collected by Time Destination A : Right Femoral Head Bone Hip, Right TISSUE EXAM Derek Burns MD 07/08/2019 0926 Implant(s): Implant Name Type Inv. Item Serial No. Director Product Development Lot No. LRB No. Used Action CUP 46MM CLUSTER VARGAS TRIDENT PSL - [id number] CUP 46MM CLUSTER VARGAS TRIDENT PSL IRA OR [id number] Right 1 Implanted INSERT 32MM SZD 10DEG TRIDENT X3 - [id number] INSERT 32MM SZD 10DEG TRIDENT X3 IRA OR [id number] Right 1 Implanted STEM 127DEG SZ2 FEM ACCOLADE II - [id number] STEM 127DEG SZ2 FEM ACCOLADE II IRA OR [id number] Right 1 Implanted HEAD 32MM/+0 FEM V40 BIOLOX DELTA - [id number] HEAD 32MM/+0 FEM V40 BIOLOX DELTA IRA OR [id number] Right 1 Implanted Drain(s): * No LDAs found * Wound(s): Incision 07/08/19 Hip Right (Active) Derek Burns MD 07/08/2019 10:19 AM documented in this encounter Enrique Lewis MD - 08/20/2018 11:17 AM Derek Bryan MD - 07/08/2019 7:39 AM Derek Constantino MD - 06/29/2019 2:04 PM EDT H&P Notes (unrecognized sect ion and content) Formatting of this note may be different from the original. Valorie Bean 1950 Encounter Diagnosis Name Primary? Preop examination Yes Procedure: EUS WITH ANES. Surgeon: Reinaldo Zamorano MD PCP: Anjana Pride MD Cardiology: NA Date of Procedure: 08/26/18 History of Present Illness: Of note: history of asthma. Dictation on: 08/20/2018 11:51 AM by: ENRIQUE LEWIS [[id number]] RCRI = 0 . (Score/Risk of Major Cardiac Outcomes - 0/0.4%, 1/0.9%, 2/2.4%, 3 or more/>5.4%. This may overestimate the cardiac risks in lower risk procedures and underestimate the risks in vascular procedures. This study has been externally validated.) Apfel: 2 Plan: 1. The patient falls into an acceptable cardiac risk for category for their planned procedure per 2014 ACC Guidelines and Recommendations. 2. Endocarditis prophylaxis is not required per 2007 ACC/AHA Guidelines and Recommendations (endorsed by the 2014 ACC Guidelines). 3. Avoid/limit perioperative hypothermia. 4. Perioperative thromboembolic prophylaxis is recommended per 2016 ACCP Guidelines and Recommendations (or 2011 AAOS Guidelines for orthopedic procedures, or 2008 ARABELLA Guidelines for neurosurgical procedures). 5. The patient s head of the bed should be elevated to 30 degrees post- operatively unless contraindicated by the procedure 6. The patient has been advised to discontinue NSAID s and alternative medicines (Vitamins, herbals, etc.) seven days prior to surgery. Perioperative management of the patient's antiplatelet therapy is recommended per the 2016 ACC/AHA Guidelines - Focused Update on Duration of Dual Antiplatelet Therapy in Patient's With Coronary Artery Disease or in accordance with their at risk specialist's recommendations. 7. The patient may use appropriate amounts of acetaminophen pre-operatively for pain management if not allergic and if no history of liver disease. 8. The patient was advised not to eat or drink anything after midnight on the evening prior to their procedure except for a sip of water to take any recommended medications. 9. Ordered laboratory tests will be reviewed pre-operatively for any pertinent abnormalities. 10. Post-operative spirometry/volurex, deep breathing maneuvers, and early ambulation is recommended if not contraindicated by the procedure. 11. This report will be made available to the requesting surgeon through the electronic medical records. 12. The patient is currently on a scheduled beta-aubrie, which should be continued perioperatively per 2014 ACC Guidelines and Recommendations. 13. Given the patient's history of asthma, would recommend aggressive pulmonary toilet and lung expansion modalities including deep breathing and IS. The patient was advised to continue scheduled use of their inhalers up to and including the day of their procedure. Perioperative nebulizers can be used as needed. 14. Allergies Allergen Reactions Lisinopril Hives Sulfamethoxazole-Trimethoprim Diarrhea Biaxin [Clarithromycin] Valorie Walters Home Medication Instructions Prior to Surgery JESSIKA:[id number] Printed on:08/20/18 1654 Medication Information Take last dose on Take the morning of surgery Comment(s) amLODIPine (NORVASC) 5 MG tablet Take 5 mg by mouth AM for * days . ascorbic acid, vitamin C, (vitamin C) 1000 MG tablet Take 1,000 mg by mouth daily. aspirin 81 MG EC tablet Take 162 mg by mouth at bedtime. atenolol (TENORMIN) 50 MG tablet 2 (two) times a day . atorvastatin (LIPITOR) 10 MG tablet Take 10 mg by mouth nightly . calcium citrate/vitamin D3 (CITRACAL REGULAR ORAL) Take 1,200 mg by mouth daily. doxazosin (CARDURA) 2 MG tablet Take 2 mg by mouth AM for * days . losartan-hydrochlorothiazide (HYZAAR) 100-25 mg per tablet Take 1 tablet by mouth AM for * days . multivitamin (multivitamin) per tablet Take 1 tablet by mouth daily. OXYGEN-AIR DELIVERY SYSTEMS MISC by Miscellaneous route C PAP MACHINE AT BEDTIME . triamcinolone (KENALOG) 0.1 % cream APPLY TO AFFECTED AREA 3 TIMES DAILY NEEDED FOR RASH VENTOLIN HFA 90 mcg/actuation inhaler 2 puffs 4 (four) times a day as needed. Past Medical History: Diagnosis Date Arthritis Asthma Back pain Bladder prolapse, female, acquired HAD SURG. Cataracts, bilateral small Hyperlipidemia Hypertension Lumbar disc herniation Morbid obesity (HCC) Nephrolithiasis Ovarian cyst Pancreatic cyst Sciatica Sleep apnea CPAP Sleep apnea, obstructive cpap Ureteral stone UTI (urinary tract infection) Past Surgical History: Procedure Laterality Date APPENDECTOMY COLONOSCOPY 08/21/2016 CYSTO Left 09/18/2017 with retrograde pyelogram placement of stent....Dr. Tovar CYSTO Left 10/09/2017 ureteral stone, removal of double J stent, semirigid ureteroscopy, holmium laser lithotripsy of the stone, removal of the stone fragments with the basket, and placement of double J stent....Dr. Tovar CYSTOCELE REPAIR 04/30/2018 Sling procedure with mesh.....Dr. 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 HENT: Negative for congestion, sore throat and stridor. Eyes: Negative for blurred vision and double vision. Cardiovascular: Negative for chest pain, dyspnea on exertion and leg swelling. Respiratory: Negative for cough and shortness of breath. Endocrine: Negative for cold intolerance and heat intolerance. Hematologic/Lymphatic: Negative for adenopathy. Does not bruise/bleed easily. Skin: Negative for dry skin and itching. Musculoskeletal: Negative for arthritis and joint pain. Gastrointestinal: Negative for abdominal pain, constipation and diarrhea. Genitourinary: Negative for bladder incontinence and urgency. Neurological: Negative for dizziness and seizures. Psychiatric/Behavioral: Negative for depression. The patient is not nervous/anxious. Allergic/Immunologic: Negative for environmental allergies. Vitals: 08/20/18 1059 BP: 148/72 Pulse: (!) 54 Temp: 97.9 F (36.6 C) TempSrc: Oral SpO2: 95% Weight: 94 kg (207 lb 3.7 oz) Height: 5' 2 Physical Exam Constitutional: Appears well-developed and well-nourished. No distress. HENT: Head: Normocephalic and atraumatic. Mouth/Throat: Oropharynx is clear and moist. Eyes: EOM are normal. Neck: Neck supple. No tracheal deviation present. No thyromegaly present. Cardiovascular: Normal rate, regular rhythm and normal heart sounds. Exam reveals no friction rub. No murmur heard. Pulmonary/Chest: Effort normal and breath sounds normal. No respiratory distress. No wheezes. Abdominal: Soft. Bowel sounds are normal. exhibits no distension. There is no tenderness. Musculoskeletal: Normal range of motion. no edema or tenderness. Neurological: alert and oriented to person, place, and time. No cranial nerve deficit. Skin: Skin is warm and dry. Not diaphoretic. No erythema. Psychiatric: normal mood and affect. Behavior is normal. Vitals reviewed. Preprocedure Sleep Apnea Assessment - High Risk (3/3) Sleep Apnea in the patient's Active Problem List or Medical History: yes 1. History of apparent airway obstruction during sleep: (1 point for this category) Do you snore frequently, or snore loud enough to be heard through a closed door?: yes (cpap setting 6) 2. Somnolence of the patient: (1 point for this category) No Data Recorded 3. Predisposing physician characteristics: (1 point for this category, 2 points if the BMI ? 40) BMI (Calculated): 37.9 Enrique Lewis MD [facility]Ad[facility] [phone] in this encounter INTERVAL HISTORY AND PHYSICAL Patient Name: Valorie Bean Admit Date: [id number] MR #: [id number] : 1950 The H&P has been reviewed and the patient has been examined. I concur with the findings of the H&P. There are no significant changes. It is appropriate to proceed with the planned procedure. Derek Burns MD 07/08/2019 7:39 AM Valorie Bean comes in today. Valorie comes in today for her preoperative consultation regarding her right hip degenerative arthrosis. She is looking forward to the surgery. Tired of the pain. Tired of the discomfort. She has just gotten to a point where she cannot take it anymore. Pain is a 10/10. PAST MEDICAL HISTORY Asthma, high cholesterol, hypertension, sleep apnea. REVIEW OF SYSTEMS Joint pain, arthralgias, hip pain, arthritis, back pain, bladder prolapse, cataracts, lumbar herniation, kidney stones, ovarian cyst, pancreatic cyst, sciatica, ureteral stones, urinary tract infections. SURGERIES Appendectomy, colonoscopy, cystoscopy, cystocele repair, D and C, EGDs, hysterectomy, right knee arthroscopy, salpingo-oophorectomy, tubal ligation. FAMILY HISTORY Cancer, hypertension, TB. Socially, she does not smoke, does not drink. ALLERGIES Lisinopril, trimethoprim, Biaxin. X-ray examination of the right hip reveals severe endstage right hip degenerative arthrosis with hip dysplasia. PHYSICAL EXAM Her chest is clear. Heart regular rate and rhythm. Abdomen is benign. No carotid bruits are noted at this point in time. Right lower extremity is neurologically intact with 2+ pulses with full range of motion of the ankle and knee. The right hip has severe pain at 110 degrees of hip flexion, severe pain at 10 degrees of internal and 20 degrees of external rotation. Skin is intact without lesions. Normocephalic. IMPRESSION Severe right hip degenerative arthrosis. PLAN At this point in time, we are going to proceed forward with a right total hip replacement. I have discussed all of the treatment options with the patient. The patient was a part of the entire decision-making process. I reviewed her narcotics check. Last listed medication was Percocet back in September of 2017. documented in this encounter Inez Mensah RN - 08/20/2018 11:14 AM EST Nursing Notes (unrecognized section and content) .Please drink 20oz clear liquid between 12 am and two hours prior to your surgery time. Clear liquids are defined as carbohydrate drinks ( Gatorade or Powerade) water.NPO clear liquid instruction sheet given to patient.Patient Instructions for [facility]: Prior to surgery: Please contact your Surgeon's office for the scheduled time of your surgery. Report to the Surgery Family Waiting Area in the green area of [facility] 1 1/2-2 hours prior to your surgery. You may use the Program Coordinator parking available at the Main Entrance/Blue Area of [facility] - a voucher for parking will be provided to you. One family member may accompany you back into the Pre-Op Area. Do not eat or drink anything after midnight or as directed, including gum, mints, and cough drops. No smoking after midnight. No alcohol 24 hours prior to your surgery. Please take any medications you have been instructed to take the morning of your surgery with small sips of water. Please be sure to wear comfortable, appropriate clothing. Please remove all jewelry and piercing's, including wedding rings. Leave all valuable items at home. Shower using anti-bacterial soap or as advised by your Surgeon's office Do not apply any makeup or lotions. Remove all nail serbian for surgeries involving extremities. Please remember to bring both your insurance card and a photo ID with you on the day of surgery. After your surgery: If you are having outpatient surgery - you must have a licensed driver/merchandiser to take you home. The expectation is that this driver/merchandiser will remain at the hospital for the duration of your procedure. You are advised to have a family member with you for at least 24 hours after being under Anesthesia. in this encounter Cosmo, Brandy, PT - 07/08/2019 5:07 PM Ligia Campbell, OT - 07/08/2019 4:13 PM Rosalind Peguero, NECK BAND SETTER CAR FERRY MASTER - 07/08/2019 2:32 PM EDT Consult Notes (unrecognized section and content) Physical Therapy PHYSICAL THERAPY EVALUATION NOTE Skilled Therapy Needs After Discharge Anticipate Resolution of Current Assessment Limitations Including: Pain Are Skilled Therapy Services Needed After Discharge: Yes Intensity of Skilled Therapy: 2-3 days per week Anticipated Duration of Skilled Therapy: Duration 7 - 10 days DME Recommendation: Wheeled walker DME Rationale: Patient's condition creates an increased risk of safety hazard without recommended equipment Rehab Potential: Good Outcomes Measures Prior Function - Basic Mobility % Impaired: AM-PAC - Basic Mobility Raw Score: 18 Points AM-PAC - Basic Mobility % Impaired: 40.47% functionally impaired Physical Therapy Assessment History: Dx: R THR 07/08/19 The following factors influence the patient's participation in the PT plan of care: Personal factors: apprehension toward mobility Environmental factors: steps to enter home The following co-morbidities (from this admission or prior) influence the patient's participation in this plan of care: asthma, high cholesterol, HTN, sleep apnea Number of History elements affecting this patient's PT plan of care: 1-2 Examination of Body Systems: The patient presents with impairments of strength, ROM, pain, functional endurance. These impairments result in limitations of gait, functional transfers, stair-climbing, safety and activity tolerance. These impairments result in restrictions of household mobility, community mobility and leisure activities. Number of Body Systems elements affecting this patient's PT plan of care: 1-2 Clinical Presentation: The patient's clinical presentation for this PT evaluation is evolving as evidenced by current PT documentation. Activity Tolerance Activity Tolerance: Tolerates 10 - 20 min activity with multiple rests Therapy Precautions Weight Bearing Status: WFL General Rehab Precautions: Fall risk Balance Sitting Balance - Static: Supports self independantly with both upper extremities Standing Balance - Static: Supports self independantly with both upper extremities Bed Mobility Skilled Intervention: Pt up in chair upon arrival Transfers Sit to Stand: Supervision Case Management Director: Wheeled walker Skilled Intervention: Vc for hand placement Gait/Locomotion Gait Assistance: Contact guard Assistive Device: Wheeled walker Distance: 60 Feet Pattern: Step to, R impaired heel strike, L impaired heel strike Skilled Intervention: Pt ambulated with step-to gait and antalgic gait pattern with increased use of UEs to unweight R LE. Pt extensively educated on precautions, discharge planning, and mobility through verbal instruction and demonstration. Pt demonstrated understanding of education and billed 1 unit therapeutic activity for education. Home Living Type of Home: House Home Layout: One level, Stairs to enter with rails(1 BENI with 1 HR) Bathroom Shower/Tub: Tub/shower unit Bathroom Toilet: Raised Bathroom Equipment: Grab bars in shower, Shower chair Bathroom Accessibility: Accessible Home Equipment: Wheeled Walker, Cane Prior Level of Function Level of [place]: Independent with ADLs and functional transfers, Independent with homemaking with ambulation Lives With: Spouse Receives Help From: Family Vocational: Retired Comments: Ind at PLOF with no AD Past Medical History: Diagnosis Date Arthritis Asthma Back pain Bladder prolapse, female, acquired HAD SURG. Cataracts, bilateral small Hyperlipidemia Hypertension Lumbar disc herniation Morbid obesity (HCC) Nephrolithiasis Ovarian cyst Pancreatic cyst Sciatica Sleep apnea CPAP Sleep apnea, obstructive cpap Ureteral stone UTI (urinary tract infection) Past Surgical History: Procedure Laterality Date APPENDECTOMY COLONOSCOPY 08/21/2016 CYSTO Left 09/18/2017 with retrograde pyelogram placement of stent....Dr. Tovar CYSTO Left 10/09/2017 ureteral stone, removal of double J stent, semirigid ureteroscopy, holmium laser lithotripsy of the stone, removal of the stone fragments with the basket, and placement of double J stent....Dr. Tovar CYSTOCELE REPAIR 04/30/2018 Sling procedure with mesh.....Dr. Boston DILATION AND CURETTAGE OF UTERUS 1977 EGD ENDOSCOPIC ULTRASOUND EXAM N/A 08/26/2018 Procedure: EUS WITH ANES.; Surgeon: Reinaldo Zamorano MD; Location: [facility]; Service: Gastroenterology HYSTERECTOMY HYSTERECTOMY VAGINAL 1987 with vaginectomy KNEE SURGERY Right 1993 scope, arthritis clean out SALPINGOOPHORECTOMY Bilateral 1989 TUBAL LIGATION For complete objective data, detailed plan of care and patient education refer to: PT EVALUATION flow sheet, PT TREATMENT flow sheet, patient Plan of Care, Plan of Care progress note, and Patient Education. This note stands as the current Discharge Summary upon patient discharge from the hospital or completion of Physical Therapy Plan of Care. Occupational Therapy OCCUPATIONAL THERAPY EVALUATION NOTE Sx: R THR 07/08/19 Skilled Therapy Needs After Discharge Anticipate Resolution of Current Assessment Limitations Including: Pain Are Skilled Therapy Services Needed After Discharge: No DME Recommendation: Adaptive equipment kit DME Rationale: Patient's condition creates an increased risk of safety hazard without recommended equipment Rehab Potential: Good Outcomes Measures Prior Function Daily Activity: Raw Score: 24 Prior Function Daily Activity % Impaired: 0% functionally impaired AM-PAC Daily Activity: Raw Score: 18 AM-PAC Daily Activity % Impaired: 46.65% functionally impaired Occupational Therapy Assessment The patient presents with musculoskeletal impairment(s) in right lower extremity which create performance deficits including strength, balance, activity tolerance and pain, problem solving and safety, and knowledge deficit. These performance impairments limit participation in LE dressing, bathing, toileting, home management, meal preparation and functional mobility in the chosen occupational roles of spouse, family member and community member. The patient's co morbidities do not affect patient performance in the above activities and roles. The patient's home setup is a ice cream dipper and family/caregiver support is a ice cream dipper for return to prior level of function. The patient's compliance is a ice cream dipper and awareness of own capacity and performance is a ice cream dipper to return to prior level of function. During the assessment, minimal to moderate modification of task was required and several treatment options were identified in the plan of care. This consultation required expanded review of the medical and therapy history. Activity Tolerance Activity Tolerance: Tolerates 10 - 20 min activity with multiple rests Therapy Precautions Weight Bearing Status: WFL General Rehab Precautions: Fall risk Ambulate patient; FWB RLE. UE Assessment B UE AROM WFL with gross strength of 4+/5 throughout. Cognition Overall Cognitive Status: Within Functional Limits Arousal/Alertness: Appropriate responses to stimuli Orientation Level: Oriented X4 Executive functioning: WFL Safety Judgment: Good awareness of safety precautions Problem Solving: Able to problem solve independently Attention: Attends to distracted environment Hearing Status: WFL Social Interaction: WFL ADL/IADL Feeding: Modified independence Grooming : (CR; mod indep with s/u) LE Dressing: Dependent(for socks, seated EOB) Skilled Intervention: No further ADL's addressed d/t feeling of light headedness and meal tray present. Bed Mobility Supine to Sit: Min Functional Transfers Sit to Stand: Min Bed to Chair Transfers: Min, Two person assist Skilled Intervention: Min A with WW x2 for max safety d/t c/o light headedness and was somewhat unsteady. Home Living Type of Home: House Home Layout: One level, Stairs to enter with rails, Laundry in basement Bathroom Shower/Tub: Tub/shower unit Bathroom Toilet: Raised Bathroom Equipment: Grab bars in shower, Shower chair Bathroom Accessibility: Accessible Home Equipment: Wheeled Walker, Cane Prior Level of Function Level of [place]: Independent with ADLs and functional transfers, Independent with homemaking with ambulation Lives With: Spouse Receives Help From: Family Vocational: Retired Comments: Ambulates without device. Has borrowed a WW and bath seat. Past Medical History: Diagnosis Date Arthritis Asthma Back pain Bladder prolapse, female, acquired HAD SURG. Cataracts, bilateral small Hyperlipidemia Hypertension Lumbar disc herniation Morbid obesity (HCC) Nephrolithiasis Ovarian cyst Pancreatic cyst Sciatica Sleep apnea CPAP Sleep apnea, obstructive cpap Ureteral stone UTI (urinary tract infection) Past Surgical History: Procedure Laterality Date APPENDECTOMY COLONOSCOPY 08/21/2016 CYSTO Left 09/18/2017 with retrograde pyelogram placement of stent....Dr. Tovar CYSTO Left 10/09/2017 ureteral stone, removal of double J stent, semirigid ureteroscopy, holmium laser lithotripsy of the stone, removal of the stone fragments with the basket, and placement of double J stent....Dr. Tovar CYSTOCELE REPAIR 04/30/2018 Sling procedure with mesh.....Dr. Boston DILATION AND CURETTAGE OF UTERUS 1977 EGD ENDOSCOPIC ULTRASOUND EXAM N/A 08/26/2018 Procedure: EUS WITH ANES.; Surgeon: Reinaldo Zamorano MD; Location: [facility]; Service: Gastroenterology HYSTERECTOMY HYSTERECTOMY VAGINAL 1987 with vaginectomy KNEE SURGERY Right 1993 scope, arthritis clean out SALPINGOOPHORECTOMY Bilateral 1989 TUBAL LIGATION For complete objective data, detailed plan of care and patient education refer to: OT EVALUATION flow sheet, OT TREATMENT flow sheet, patient Plan of Care, Plan of Care progress note, and Patient Education. This note stands as the current Discharge Summary upon patient discharge from the hospital or completion of Occupational Therapy Plan of Care. Associated Order(s): IP CONSULT TO CARE MANAGEMENT COMPLEX DISCHARGE Date: 07/08/2019 Time: 2:32 PM Patient Name: Valorie Bean Date of : 1950 Sex: Female Patient attended [employer] and established discharge plan to return home with [facility]. Patient confirmed this plan upon admission. Patient denies any additional questions or concerns at this time. Patient and her , Inderjit, live in a 1 story home with 1 step and a handrail to enter. The bedroom and bathroom are on the first floor. The laundry is in the basement. The bathroom has a tub-shower, with grab bars but not a seat. The commode is a handicap accessible height. [facility] aware of admission and notify order placed. nozzle worker continues to follow. Discharge Plan Shared UM/CC and RN Source of Information: Patient Living Arrangements: Spouse/significant other Insurance Coverage for Prescriptions: Yes [facility] Disposition D/C Disposition: Home Health Care Services Related to Current Admission?: Yes Agency/Destination: [facility] Home Care Needs : Home health care Transportation Type: Auto Options Reviewed: List provided, Explained services/benefits Reason for Choice: Patient/Family prefernce documented in this encounter Visit Details Home Health Visit - Care Juan Francisco n (unrecognized section and content) Visit Type -SCOURER Routine Visi t Discipline -Physical Therapy Problems Problem Start Date Status Goals Interventions Abnormal Findings Disciplines: Mcfp, Physical Therapy, Occupational Therapy, Speech Therapy, Home Health Aide, Medical Social Work, Spiritual Care, Art Therapy, Massage Therapy, Registered Dietitian, Student - Medical Social Work 07/10/2019 Active 1 goal linked to scheduled/documented intervention 1 goal intervention scheduled/documented in this visit PT11- Decreased ROM Disciplines: Physical Therapy 07/10/2019 Active 1 goal linked to scheduled/documented intervention 1 goal intervention scheduled/documented in this visit PT14- Decreased Strength Disciplines: Physical Therapy 07/10/2019 Active 1 goal linked to scheduled/documented intervention 1 goal intervention scheduled/documented in this visit PT16- Decreased knowledge of Home Exercise Program Disciplines: Physical Therapy 07/10/2019 Active 1 goal linked to scheduled/documented intervention 1 goal intervention scheduled/documented in this visit PT19- Decreased Transfer Ability Disciplines: Physical Therapy 07/10/2019 Active 1 goal linked to scheduled/documented intervention 1 goal intervention scheduled/documented in this visit PT20- Decreased Ambulation Ability Disciplines: Physical Therapy 07/10/2019 Active 1 goal linked to scheduled/documented intervention 1 goal intervention scheduled/documented in this visit PT22- Decreased Stair Negotiation Ability Disciplines: Physical Therapy 07/10/2019 Active 1 goal linked to scheduled/documented intervention 1 goal intervention scheduled/documented in this visit PT23- Decreased Home Exit/Entry Ability Disciplines: Physical Therapy 07/10/2019 Active 1 goal linked to scheduled/documented intervention 1 goal intervention scheduled/documented in this visit Pain Management Disciplines: Mcfp, Physical Therapy, Occupational Therapy, Speech Therapy, Home Health Aide, Medical Social Work, Spiritual Care, Art Therapy, Massage Therapy, Registered Dietitian, Student - Medical Social Work 07/10/2019 Active 1 goal linked to scheduled/documented intervention 1 goal intervention scheduled/documented in this visit Risk of Falls Disciplines: Mcfp, Physical Therapy, Occupational Therapy, Speech Therapy, Home Health Aide, Medical Social Work, Spiritual Care, Art Therapy, Massage Therapy, Registered Dietitian, Student - Medical Social Work 07/10/2019 Active 1 goal linked to scheduled/documented intervention 1 goal intervention scheduled/documented in this visit Goals Goal Associated Problem Outcome Goal Met? Visit Notes Assessment findings goal Abnormal Findings No Range of motion goal PT11- Decreased ROM No Strength PT Ortho goal PT14- Decreased Strength No HEP education goal PT16- Decreased knowledge of Home Exercise Program No Transfer goal PT19- Decreased Transfer Ability No Ambulation PT Ortho goal PT20- Decreased Ambulation Ability No Stair negotiation PT Ortho goal PT22- Decreased Stair Negotiation Ability No Home exit/entry PT Ortho goal PT23- Decreased Home Exit/Entry Ability No Pain management goal Pain Management No Balance/Fall risk goal Risk of Falls No Interventions Intervention Associated Problem/Goal Status Variance Visit Notes Report abnormal assessment to physician Problem:Abnormal Findings Goal:Assessment findings goal Scheduled Assess/Instruct in therapeutic exercises and perform manual techniques to improve functional ROM. Problem:PT11- Decreased ROM Goal:Range of motion goal Scheduled Patient performed ankle pumps, quad sets, short-arc quad, heel slides and long arc quad within R LE. Educated patient with importance of jimbo and slowing with ROM to improve with benefit of all exercise. Patient showed no increase in pain or fatigue with exercise and patient tolerating all cues well. Increasing with strength will lead patient to reaching LTGs and increasing with independence outside of home. PT muscle re-education Problem:PT14- Decreased Strength Goal:Strength PT Ortho goal Scheduled PT establish or upgrade home program Problem:PT16- Decreased knowledge of Home Exercise Program Goal:HEP education goal Scheduled Reviewed HEP with patient and educated patient with importance of completing daily to reach LTGs and return to prior level of safety in home. Educated patient with progressing duration with walking program as tolerated with using AD at all times PT transfer training Problem:PT19- Decreased Transfer Ability Goal:Transfer goal Scheduled Patient performed a variety of transfers from high and low surfaces in home with using FWW. Patient needed educated with anterior weight shift, progressing with wider SONIDO and pushing from elevated armrest to improve with safety and less assistance from therapist. Patient was SBA with all transfers in home with verbal cues on slowing with jimbo and reaching back when sitting to redcue plopping. Progressing with form with all transfers in home will improve with safety and independence Assess/Instruct in safe gait techniques in home. Problem:PT20- Decreased Ambulation Ability Goal:Ambulation PT Ortho goal Scheduled Patient is ambulating in home with using FWW and AR at all times. Challenged patient with stepping over and around objects in home to improve with safety and stability in community with reducing assistance from family. Educated patient with importance of good posture and breathing pattern to improve with gait duration and efficiency. Patient was challenged with ambulating on variety of surfaces in home to improve with safety outside of home. Patient was able to ambulate for 2-3 minutes before needing a rest break due to fatigue and weakness within R hip. Educated patient with importance of equal stride and progressing with R hip flexion to improve with toe clearance with increasing safety on uneven surfaces in home Assess/Instruct in safe stair negotiation techniques Problem:PT22- Decreased Stair Negotiation Ability Goal:Stair negotiation PT Ortho goal Scheduled Patient is performing stair mobility with using handrails for support with CGA at all times. Educated patient with which LE to lead with to improve with comfort and stability within R LE. Progressing with strength and mobility within R hip will lead patient to reciprocal gait pattern and require less assistance from family with all stair mobility. Educated patient with importance of posture and foot placement on steps to improve safety and reduce fall risk Assess/Instruct in safe home exit/entry and community prepared mobility techniques Problem:PT23- Decreased Home Exit/Entry Ability Goal:Home exit/entry PT Ortho goal Scheduled not tested due to wekaness from stair training inside of home Instruct on pain management techniques Problem:Pain Management Goal:Pain management goal Scheduled Instruct on fall prevention Problem:Risk of Falls Goal:Balance/Fall risk goal Scheduled Visit Details Visit Type -PT Initial Evalu ation Discipline -Physical Therapy Interventions Intervention Associated Problem/Goal Status Variance Visit Notes Report abnormal assessment to physician Problem:Abnormal Findings Goal:Assessment findings goal Scheduled Assess/Instruct in therapeutic exercises and perform manual techniques to improve functional ROM. Problem:PT11- Decreased ROM Goal:Range of motion goal Scheduled PT muscle re-education Problem:PT14- Decreased Strength Goal:Strength PT Ortho goal Scheduled PT establish or upgrade home program Problem:PT16- Decreased knowledge of Home Exercise Program Goal:HEP education goal Scheduled PT transfer training Problem:PT19- Decreased Transfer Ability Goal:Transfer goal Scheduled Assess/Instruct in safe gait techniques in home. Problem:PT20- Decreased Ambulation Ability Goal:Ambulation PT Ortho goal Scheduled Assess/Instruct in safe stair negotiation techniques Problem:PT22- Decreased Stair Negotiation Ability Goal:Stair negotiation PT Ortho goal Scheduled Assess/Instruct in safe home exit/entry and community prepared mobility techniques Problem:PT23- Decreased Home Exit/Entry Ability Goal:Home exit/entry PT Ortho goal Scheduled Instruct on pain management techniques Problem:Pain Management Goal:Pain management goal Scheduled Instruct on fall prevention Problem:Risk of Falls Goal:Balance/Fall risk goal Scheduled Visit Details Visit Type -PT Non-OASIS/Dis cipl Discharge Discipline -Physical Therapy Interventions Intervention Associated Problem/Goal Status Variance Visit Notes Report abnormal assessment to physician Problem:Abnormal Findings Goal:Assessment findings goal Scheduled Assess/Instruct in therapeutic exercises and perform manual techniques to improve functional ROM. Problem:PT11- Decreased ROM Goal:Range of motion goal Scheduled Patient performed ankle pumps, quad sets, short-arc quad, heel slides and long arc quad within R LE. Educated patient with importance of jimbo and slowing with ROM to improve with benefit of all exercise. Patient showed no increase in pain or fatigue with exercise and patient tolerating all cues well. Increasing with strength will lead patient to reaching LTGs and increasing with independence outside of home. PT muscle re-education Problem:PT14- Decreased Strength Goal:Strength PT Ortho goal Scheduled PT establish or upgrade home program Problem:PT16- Decreased knowledge of Home Exercise Program Goal:HEP education goal Scheduled Reviewed HEP with patient and educated patient with importance of completing daily to reach LTGs and return to prior level of safety in home. Educated patient with importance of walking program and increasing duration as tolerated PT transfer training Problem:PT19- Decreased Transfer Ability Goal:Transfer goal Scheduled Patient performed a variety of transfers from high and low surfaces in home with using FWW. Patient needed educated with anterior weight shift, progressing with wider SONIDO and pushing from elevated armrest to improve with safety and less assistance from therapist. Patient was SBA with all transfers in home with verbal cues on slowing with jimbo and reaching back when sitting to redcue plopping. Progressing with form with all transfers in home will improve with safety and independence Assess/Instruct in safe gait techniques in home. Problem:PT20- Decreased Ambulation Ability Goal:Ambulation PT Ortho goal Scheduled Patient is ambulating in home with using FWW and CGA at all times. Challenged patient with stepping over and around objects in home to improve with safety and stability in community with reducing assistance from family. Educated patient with importance of good posture and breathing pattern to improve with gait duration and efficiency. Patient was challenged with ambulating on variety of surfaces in home to improve with safety outside of home. Patient was able to ambulate for 2-3 minutes before needing a rest break due to fatigue and weakness within R hip. Eduated patient with importance of equal stride length with progressing heel strike and toe off with gait to normalize gait pattern Assess/Instruct in safe stair negotiation techniques Problem:PT22- Decreased Stair Negotiation Ability Goal:Stair negotiation PT Ortho goal Scheduled not tested due to patient not feeling confidence about stairs yet Assess/Instruct in safe home exit/entry and community prepared mobility techniques Problem:PT23- Decreased Home Exit/Entry Ability Goal:Home exit/entry PT Ortho goal Scheduled not tested due to weather Instruct on pain management techniques Problem:Pain Management Goal:Pain management goal Scheduled Instruct on fall prevention Problem:Risk of Falls Goal:Balance/Fall risk goal Scheduled Interventions Intervention Associated Problem/Goal Status Variance Visit Notes Report abnormal assessment to physician Problem:Abnormal Findings Goal:Assessment findings goal Scheduled Assess/Instruct in therapeutic exercises and perform manual techniques to improve functional ROM. Problem:PT11- Decreased ROM Goal:Range of motion goal Scheduled PT muscle re-education Problem:PT14- Decreased Strength Goal:Strength PT Ortho goal Scheduled Patient performed ankle pumps, quad sets, short-arc quad, heel slides and long arc quad within R LE. Educated patient with importance of jimbo and slowing with ROM to improve with benefit of all exercise. Patient showed no increase in pain or fatigue with exercise and patient tolerating all cues well. Increasing with strength will lead patient to reaching LTGs and increasing with independence outside of home. PT establish or upgrade home program Problem:PT16- Decreased knowledge of Home Exercise Program Goal:HEP education goal Scheduled Reviewed HEP with patient and educated patient with importance of completing daily to reach LTGs and return to prior level of safety in home. Added new strengthening exercies to HEP with educating patient on importance of walking program as tolerated PT transfer training Problem:PT19- Decreased Transfer Ability Goal:Transfer goal Scheduled Patient performed a variety of transfers from high and low surfaces in home with using FWW. Patient needed educated with anterior weight shift, progressing with wider SONIDO and pushing from elevated armrest to improve with safety and less assistance from therapist. Patient was CGA with all transfers in home with verbal cues on slowing with jimbo and reaching back when sitting to redcue plopping. Progressing with form with all transfers in home will improve with safety and independence Assess/Instruct in safe gait techniques in home. Problem:PT20- Decreased Ambulation Ability Goal:Ambulation PT Ortho goal Scheduled Patient is ambulating in home with using FWW and SBA at all times. Challenged patient with stepping over and around objects in home to improve with safety and stability in community with reducing assistance from family. Educated patient with importance of good posture and breathing pattern to improve with gait duration and efficiency. Patient was challenged with ambulating on variety of surfaces in home to improve with safety outside of home. Patient was able to ambulate for 2-3 minutes before needing a rest break due to fatigue and weakness within R hip. Educated patient with importance of equal stride length and progressing with heel strike and toe off with gait within RLE to normalize gait pattern Assess/Instruct in safe stair negotiation techniques Problem:PT22- Decreased Stair Negotiation Ability Goal:Stair negotiation PT Ortho goal Scheduled Patient is performing stair mobility with using handrails for support with CGA at all times. Educated patient with which LE to lead with to improve with comfort and stability within R LE. Progressing with strength and mobility within R hip will lead patient to reciprocal gait pattern and require less assistance from family with all stair mobility. Educated patient with importance of posture and foot placement on steps to improve safety and reduce fall risk Assess/Instruct in safe home exit/entry and community prepared mobility techniques Problem:PT23- Decreased Home Exit/Entry Ability Goal:Home exit/entry PT Ortho goal Scheduled patient refused due to weather and will address next visit Instruct on pain management techniques Problem:Pain Management Goal:Pain management goal Scheduled Instruct on fall prevention Problem:Risk of Falls Goal:Balance/Fall risk goal Scheduled Visit Details Visit Type -INSPECTOR MECHANICAL Routine Discipline -[facility] Problems Problem Start Date Status Goals Interventions Abnormal Findings Disciplines: Mcfp, Physical Therapy, Occupational Therapy, Speech Therapy, Home Health Aide, Medical Social Work, Spiritual Care, Art Therapy, Massage Therapy, Registered Dietitian, Student - Medical Social Work 07/10/2019 Active 1 goal linked to scheduled/documented intervention 1 goal intervention scheduled/documented in this visit Bleeding Precautions Disciplines: Mcfp 07/10/2019 Active - 1 problem intervention scheduled/documented in this visit Home Medication Management Disciplines: Mcfp 07/10/2019 Active 1 goal linked to scheduled/documented intervention 4 goal interventions scheduled/documented in this visit Learning/Teaching Needs - HTN Disciplines: Mcfp 07/10/2019 Active 1 goal linked to scheduled/documented intervention 1 goal intervention scheduled/documented in this visit Learning/Teaching Needs - Joint Replacement Disciplines: Mcfp 07/10/2019 Active 1 goal linked to scheduled/documented intervention 1 problem intervention scheduled/documented in this visit 6 goal interventions scheduled/documented in this visit Pain Management Disciplines: Mcfp, Physical Therapy, Occupational Therapy, Speech Therapy, Home Health Aide, Medical Social Work, Spiritual Care, Art Therapy, Massage Therapy, Registered Dietitian, Student - Medical Social Work 07/10/2019 Active 1 goal linked to scheduled/documented intervention 1 goal intervention scheduled/documented in this visit Risk of Falls Disciplines: Mcfp, Physical Therapy, Occupational Therapy, Speech Therapy, Home Health Aide, Medical Social Work, Spiritual Care, Art Therapy, Massage Therapy, Registered Dietitian, Student - Medical Social Work 07/10/2019 Active 1 goal linked to scheduled/documented intervention 1 goal intervention scheduled/documented in this visit Skilled Assessment Disciplines: Mcfp 07/10/2019 Active 1 goal linked to scheduled/documented intervention 4 goal interventions scheduled/documented in this visit Goals Goal Associated Problem Outcome Goal Met? Visit Notes Assessment findings goal Abnormal Findings No Medication management goal Home Medication Management No HTN education goal Learning/Teaching Needs - HTN No Post-op complication goal Learning/Teaching Needs - Joint Replacement No Pain management goal Pain Management No Balance/Fall risk goal Risk of Falls No Rehospitalization joint replacement goal Skilled Assessment No Interventions Intervention Associated Problem/Goal Status Variance Visit Notes Report abnormal assessment to physician Problem:Abnormal Findings Goal:Assessment findings goal Completed Bleeding precautions Problem:Bleeding Precautions Completed Instruct on high risk medications Problem:Home Medication Management Goal:Medication management goal Completed Review and identify unnecessary therapeutic duplication; cardiovascular medication problems related to dizziness; continued hyper/hypotension or low pulse; falls, dizziness, or confusion; and inappropriate use of non-steroidal anti-inflammatory drugs (NSAIDs). Medication box Problem:Home Medication Management Goal:Medication management goal Completed Verified med list accuracy. Skilled assessment medications Problem:Home Medication Management Goal:Medication management goal Completed Skilled observation and assessment of patient's response to and for s/s of complications, or exacerbation of disease process. Teach medication management Problem:Home Medication Management Goal:Medication management goal Completed Home medication management reviewed with Patient. Patient verbalizes understanding of disease process, causative factors, complication, and management related to. Instruct patient/caregiver on disease process, symptom management and self care as related to hypertension. Problem:Learning/Tea saeed Needs - HTN Goal:HTN education goal Completed Incision site care Problem:Learning/Tea saeed Needs - Joint Replacement Goal:Post-op complication goal Completed SN to instruct Patient incision site care: Wash incisions daily with soap and water, pat dry. No lotions, powders or creams. Leave open to air when no further drainage. Instruct diet Problem:Learning/Tea saeed Needs - Joint Replacement Goal:Post-op complication goal Completed Patient instructed on high protein diet and fluid restrictions/requireme nts. Patient verbalizes understanding of nutritional requirements. Instruct on constipation prevention Problem:Learning/Tea saeed Needs - Joint Replacement Goal:Post-op complication goal Completed Instruct on management of immobility complications Problem:Learning/Tea saeed Needs - Joint Replacement Goal:Post-op complication goal Completed Instruct on the prevention of deep vein thrombosis Problem:Learning/Tea saeed Needs - Joint Replacement Goal:Post-op complication goal Completed Teach Problem:Learning/Tea saeed Needs - Joint Replacement Goal:Post-op complication goal Completed Suture Removal Problem:Learning/Tea saeed Needs - Joint Replacement Completed Instruct on pain management techniques Problem:Pain Management Goal:Pain management goal Completed Instruct Patient on medications and alternative strategies to relieve pain. Instruct on fall prevention Problem:Risk of Falls Goal:Balance/Fall risk goal Completed Obtain pulse oximetry Problem:Skilled Assessment Goal:Rehospitalizati on joint replacement goal Completed SN/EMAIL ADMINISTRATOR obtain vital signs Problem:Skilled Assessment Goal:Rehospitalizati on joint replacement goal Completed Teaching - disease process Problem:Skilled Assessment Goal:Rehospitalizati on joint replacement goal Completed Skilled observation and assessment general assessment Problem:Skilled Assessment Goal:Rehospitalizati on joint replacement goal Completed SN to perform general assessment to include height, weight, vital signs, and temperature; General assessment of systems: pulmonary, cardiovascular, neurologic, gastrointestinal, endocrine, hematologic, musculoskeletal, renal/urinary, integumentary and psychosocial/psychiatr ic/mental and report any abnormalities or concerns to the physician. Visit Details Visit Type -SN HH OASIS Disc harge Discipline -[facility] Problems Problem Start Date Status Goals Interventions Abnormal Findings Disciplines: Mcfp, Physical Therapy, Occupational Therapy, Speech Therapy, Home Health Aide, Medical Social Work, Spiritual Care, Art Therapy, Massage Therapy, Registered Dietitian, Student - Medical Social Work 07/10/2019 Resolved on 07/24/2019 1 goal linked to scheduled/documente d intervention 1 goal intervention scheduled/documented in this visit Bleeding Precautions Disciplines: Mcfp 07/10/2019 Resolved on 07/24/2019 - 1 problem intervention scheduled/documented in this visit Code Status Disciplines: Mcfp, Physical Therapy, Occupational Therapy, Speech Therapy, Home Health Aide, Medical Social Work, Spiritual Care, Art Therapy, Massage Therapy, Registered Dietitian, Student - Medical Social Work 07/10/2019 Resolved on 07/24/2019 1 goal linked to scheduled/documente d intervention 1 goal intervention scheduled/documented in this visit Home Medication Management Disciplines: Mcfp 07/10/2019 Resolved on 07/24/2019 1 goal linked to scheduled/documente d intervention 4 goal interventions scheduled/documented in this visit Learning/Teaching Needs - HTN Disciplines: Mcfp 07/10/2019 Resolved on 07/24/2019 1 goal linked to scheduled/documente d intervention 1 goal intervention scheduled/documented in this visit Learning/Teaching Needs - Joint Replacement Disciplines: Mcfp 07/10/2019 Resolved on 07/24/2019 1 goal linked to scheduled/documente d intervention 1 problem intervention scheduled/documented in this visit 6 goal interventions scheduled/documented in this visit Pain Management Disciplines: Mcfp, Physical Therapy, Occupational Therapy, Speech Therapy, Home Health Aide, Medical Social Work, Spiritual Care, Art Therapy, Massage Therapy, Registered Dietitian, Student - Medical Social Work 07/10/2019 Resolved on 07/24/2019 1 goal linked to scheduled/documente d intervention 1 goal intervention scheduled/documented in this visit Prevention of Skin Breakdown - Pressure Ulcer Disciplines: Mcfp, Physical Therapy, Occupational Therapy, Speech Therapy, Home Health Aide, Medical Social Work, Spiritual Care, Art Therapy, Massage Therapy, Registered Dietitian, Student - Medical Social Work 07/10/2019 Resolved on 07/24/2019 1 goal linked to scheduled/documente d intervention 1 goal intervention scheduled/documented in this visit Risk of Falls Disciplines: Mcfp, Physical Therapy, Occupational Therapy, Speech Therapy, Home Health Aide, Medical Social Work, Spiritual Care, Art Therapy, Massage Therapy, Registered Dietitian, Student - Medical Social Work 07/10/2019 Resolved on 07/24/2019 1 goal linked to scheduled/documente d intervention 1 goal intervention scheduled/documented in this visit Skilled Assessment Disciplines: Mcfp 07/10/2019 Resolved on 07/24/2019 1 goal linked to scheduled/documente d intervention 4 goal interventions scheduled/documented in this visit Goals Goal Associated Problem Outcome Goal Met? Visit Notes Assessment findings goal Abnormal Findings Completed Yes Code status goal Code Status No Medication management goal Home Medication Management Completed Yes HTN education goal Learning/Teaching Needs - HTN Completed Yes Post-op complication goal Learning/Teaching Needs - Joint Replacement Completed Yes Pain management goal Pain Management Completed Yes HH/[facility] Goal Prevention of Skin Breakdown - Pressure Ulcer Completed Yes Balance/Fall risk goal Risk of Falls Completed Yes Rehospitalization joint replacement goal Skilled Assessment Completed Yes Interventions Intervention Associated Problem/Goal Status Variance Visit Notes Report abnormal assessment to physician Problem:Abnormal Findings Goal:Assessment findings goal Completed Bleeding precautions Problem:Bleeding Precautions Completed Pt denies any active bleeding, still taking aspirin Full Code Problem:Code Status Goal:Code status goal Completed Instruct on high risk medications Problem:Home Medication Management Goal:Medication management goal Completed Pt not taking tramadol, states does not have pain. Pt educated Norvasc, pt able to state what medication is and when to use it. Pt denies any dizziness. Medication box Problem:Home Medication Management Goal:Medication management goal Completed Pt has own list in purse, all medications reviewed bottle by bottle. Skilled assessment medications Problem:Home Medication Management Goal:Medication management goal Completed Pt able to state use and dosage of Lipitor, omeprazole, and atenolol. Teach medication management Problem:Home Medication Management Goal:Medication management goal Completed Pt denies any new medicaitons. Instruct patient/caregiver on disease process, symptom management and self care as related to hypertension. Problem:Learning/[place] Needs - HTN Goal:HTN education goal Completed Incision site care Problem:Learning/[place] Needs - Joint Replacement Goal:Post-op complication goal Completed SN to instruct patient incision site care: Wash incisions daily with soap and water, pat dry. No lotions, powders or creams. Leave open to air when no further drainage. Instruct diet Problem:Learning/[place] Needs - Joint Replacement Goal:Post-op complication goal Completed Pt states she is eating well. Instruct on constipation prevention Problem:Learning/[place] Needs - Joint Replacement Goal:Post-op complication goal Completed Pt denies problems. Instruct on management of immobility complications Problem:Learning/[place] Needs - Joint Replacement Goal:Post-op complication goal Completed Instruct on the prevention of deep vein thrombosis Problem:Learning/[place] Needs - Joint Replacement Goal:Post-op complication goal Completed Teach Problem:Learning/[place] Needs - Joint Replacement Goal:Post-op complication goal Completed Pt instructed to check incisions for redness, warmth, odor, foul drainage. Suture Removal Problem:Learning/[place] Needs - Joint Replacement Completed Turtlepoint removed without problems, see wound assessmentl Instruct on pain management techniques Problem:Pain Management Goal:Pain management goal Completed Pt denies pain. Instruct prevention of pressure ulcers Problem:Prevention of Skin Breakdown - Pressure Ulcer Goal:HH/HSPC Goal Completed Instruct on fall prevention Problem:Risk of Falls Goal:Balance/Fall risk goal Completed Obtain pulse oximetry Problem:Skilled Assessment Goal:Rehospitalizatio n joint replacement goal Completed SN/EMAIL ADMINISTRATOR obtain vital signs Problem:Skilled Assessment Goal:Rehospitalizatio n joint replacement goal Completed Teaching - disease process Problem:Skilled Assessment Goal:Rehospitalizatio n joint replacement goal Completed Skilled observation and assessment general assessment Problem:Skilled Assessment Goal:Rehospitalizatio n joint replacement goal Completed Interventions Intervention Associated Problem/Goal Status Variance Visit Notes Report abnormal assessment to physician Problem:Abnormal Findings Goal:Assessment findings goal Completed Bleeding precautions Problem:Bleeding Precautions Scheduled Instruct on high risk medications Problem:Home Medication Management Goal:Medication management goal Completed Review and identify unnecessary therapeutic duplication; cardiovascular medication problems related to dizziness; continued hyper/hypotension or low pulse; falls, dizziness, or confusion; and inappropriate use of non-steroidal anti-inflammatory drugs (NSAIDs). Medication box Problem:Home Medication Management Goal:Medication management goal Completed Verifiefd med list accuracy. Skilled assessment medications Problem:Home Medication Management Goal:Medication management goal Completed Skilled observation and assessment of patient's response to and for s/s of complications, or exacerbation of disease process. Teach medication management Problem:Home Medication Management Goal:Medication management goal Completed Home medication management reviewed with Patient. Patient verbalizes understanding of disease process, causative factors, complication, and management related to. Instruct patient/caregiver on disease process, symptom management and self care as related to hypertension. Problem:Learning/[place]a [place] Needs - HTN Goal:HTN education goal Completed Incision site care Problem:Learning/[place] Needs - Joint Replacement Goal:Post-op complication goal Completed SN to instruct Patient incision site care: Wash incisions daily with soap and water, pat dry. No lotions, powders or creams. Leave open to air when no further drainage. Instruct diet Problem:Learning/[place] Needs - Joint Replacement Goal:Post-op complication goal Completed Patient instructed on high protein diet and fluid restrictions/requireme nts. Patient verbalizes understanding of nutritional requirements. Instruct on constipation prevention Problem:Learning/[place] Needs - Joint Replacement Goal:Post-op complication goal Completed Instruct on management of immobility complications Problem:Learning/[place] Needs - Joint Replacement Goal:Post-op complication goal Completed Instruct on the prevention of deep vein thrombosis Problem:Learning/[place] Needs - Joint Replacement Goal:Post-op complication goal Completed Teach Problem:Learning/[place] Needs - Joint Replacement Goal:Post-op complication goal Completed Suture Removal Problem:Learning/[place] Needs - Joint Replacement Scheduled Instruct on pain management techniques Problem:Pain Management Goal:Pain management goal Completed Instruct Patient on medications and alternative strategies to relieve pain. Instruct on fall prevention Problem:Risk of Falls Goal:Balance/Fall risk goal Completed Obtain pulse oximetry Problem:Skilled Assessment Goal:Rehospitalizati on joint replacement goal Completed SN/EMAIL ADMINISTRATOR obtain vital signs Problem:Skilled Assessment Goal:Rehospitalizati on joint replacement goal Completed Teaching - disease process Problem:Skilled Assessment Goal:Rehospitalizati on joint replacement goal Completed Skilled observation and assessment general assessment Problem:Skilled Assessment Goal:Rehospitalizati on joint replacement goal Completed SN to perform general assessment to include height, weight, vital signs, and temperature; General assessment of systems: pulmonary, cardiovascular, neurologic, gastrointestinal, endocrine, hematologic, musculoskeletal, renal/urinary, integumentary and psychosocial/psychiatr ic/mental and report any abnormalities or concerns to the physician. Interventions Intervention Associated Problem/Goal Status Variance Visit Notes Report abnormal assessment to physician Problem:Abnormal Findings Goal:Assessment findings goal Scheduled Assess/Instruct in therapeutic exercises and perform manual techniques to improve functional ROM. Problem:PT11- Decreased ROM Goal:Range of motion goal Scheduled PT muscle re-education Problem:PT14- Decreased Strength Goal:Strength PT Ortho goal Scheduled Patient performed ankle pumps, quad sets, short-arc quad, heel slides and long arc quad within R LE. Educated patient with importance of jimbo and slowing with ROM to improve with benefit of all exercise. Patient showed no increase in pain or fatigue with exercise and patient tolerating all cues well. Increasing with strength will lead patient to reaching LTGs and increasing with independence outside of home. PT establish or upgrade home program Problem:PT16- Decreased knowledge of Home Exercise Program Goal:HEP education goal Scheduled Reviewed HEP with patient and educated patient with importance of completing daily to reach LTGs and return to prior level of safety in home. Educated patient with importance of progressing with walking program as tolerated PT transfer training Problem:PT19- Decreased Transfer Ability Goal:Transfer goal Scheduled Patient performed a variety of transfers from high and low surfaces in home with using FW. Patient needed educated with anterior weight shift, progressing with wider SONIDO and pushing from elevated armrest to improve with safety and less assistance from therapist. Patient was AR with all transfers in home with verbal cues on slowing with jimbo and reaching back when sitting to redcue plopping. Progressing with form with all transfers in home will improve with safety and independence Assess/Instruct in safe gait techniques in home. Problem:PT20- Decreased Ambulation Ability Goal:Ambulation PT Ortho goal Scheduled Patient is ambulating in home with using FWW and AR at all times. Challenged patient with stepping over and around objects in home to improve with safety and stability in community with reducing assistance from family. Educated patient with importance of good posture and breathing pattern to improve with gait duration and efficiency. Patient was challenged with ambulating on variety of surfaces in home to improve with safety outside of home. Patient was able to ambulate for 2-3 minutes before needing a rest break due to fatigue and weakness within R hip. Educated patient with importance of heel strike and toe off with gait with equal stride length to normalize gait pattern Assess/Instruct in safe stair negotiation techniques Problem:PT22- Decreased Stair Negotiation Ability Goal:Stair negotiation PT Ortho goal Scheduled Patient is performing stair mobility with using handrails for support with CGA at all times. Educated patient with which LE to lead with to improve with comfort and stability within R LE. Progressing with strength and mobility within R hip will lead patient to reciprocal gait pattern and require less assistance from family with all stair mobility. Educated patient with importance of posture and foot placement on steps to improve safety and reduce fall risk Assess/Instruct in safe home exit/entry and community prepared mobility techniques Problem:PT23- Decreased Home Exit/Entry Ability Goal:Home exit/entry PT Ortho goal Scheduled not tested due to weather Instruct on pain management techniques Problem:Pain Management Goal:Pain management goal Scheduled Instruct on fall prevention Problem:Risk of Falls Goal:Balance/Fall risk goal Scheduled Visit Details Visit Type -SN HH OASIS Star t of Care Discipline -Mcfp Problems Problem Start Date Status Goals Interventions Abnormal Findings Disciplines: Mcfp, Physical Therapy, Occupational Therapy, Speech Therapy, Home Health Aide, Medical Social Work, Spiritual Care, Art Therapy, Massage Therapy, Registered Dietitian, Student - Medical Social Work 07/10/2019 Active 1 goal linked to scheduled/documented intervention 1 goal intervention scheduled/documented in this visit Code Status Disciplines: Mcfp, Physical Therapy, Occupational Therapy, Speech Therapy, Home Health Aide, Medical Social Work, Spiritual Care, Art Therapy, Massage Therapy, Registered Dietitian, Student - Medical Social Work 07/10/2019 Active 1 goal linked to scheduled/documented intervention 1 goal intervention scheduled/documented in this visit Home Medication Management Disciplines: Mcfp 07/10/2019 Active 1 goal linked to scheduled/documented intervention 4 goal interventions scheduled/documented in this visit Learning/Teaching Needs - HTN Disciplines: Mcfp 07/10/2019 Active 1 goal linked to scheduled/documented intervention 1 goal intervention scheduled/documented in this visit Learning/Teaching Needs - Joint Replacement Disciplines: Mcfp 07/10/2019 Active 1 goal linked to scheduled/documented intervention 6 goal interventions scheduled/documented in this visit Pain Management Disciplines: Mcfp, Physical Therapy, Occupational Therapy, Speech Therapy, Home Health Aide, Medical Social Work, Spiritual Care, Art Therapy, Massage Therapy, Registered Dietitian, Student - Medical Social Work 07/10/2019 Active 1 goal linked to scheduled/documented intervention 1 goal intervention scheduled/documented in this visit Prevention of Skin Breakdown - Pressure Ulcer Disciplines: Mcfp, Physical Therapy, Occupational Therapy, Speech Therapy, Home Health Aide, Medical Social Work, Spiritual Care, Art Therapy, Massage Therapy, Registered Dietitian, Student - Medical Social Work 07/10/2019 Active 1 goal linked to scheduled/documented intervention 1 goal intervention scheduled/documented in this visit Risk of Falls Disciplines: Mcfp, Physical Therapy, Occupational Therapy, Speech Therapy, Home Health Aide, Medical Social Work, Spiritual Care, Art Therapy, Massage Therapy, Registered Dietitian, Student - Medical Social Work 07/10/2019 Active 1 goal linked to scheduled/documented intervention 1 goal intervention scheduled/documented in this visit Skilled Assessment Disciplines: Mcfp 07/10/2019 Active 1 goal linked to scheduled/documented intervention 4 goal interventions scheduled/documented in this visit Goals Goal Associated Problem Outcome Goal Met? Visit Notes Assessment findings goal Abnormal Findings No Code status goal Code Status No Medication management goal Home Medication Management No HTN education goal Learning/Teaching Needs - HTN No Post-op complication goal Learning/Teaching Needs - Joint Replacement No Pain management goal Pain Management No HH/HSPC Goal Prevention of Skin Breakdown - Pressure Ulcer No Balance/Fall risk goal Risk of Falls No Rehospitalization joint replacement goal Skilled Assessment No Interventions Intervention Associated Problem/Goal Status Variance Visit Notes Report abnormal assessment to physician Problem:Abnormal Findings Goal:Assessment findings goal Completed Full Code Problem:Code Status Goal:Code status goal Completed Instruct on high risk medications Problem:Home Medication Management Goal:Medication management goal Completed Review and identify unnecessary therapeutic duplication; cardiovascular medication problems related to dizziness; continued hyper/hypotension or low pulse; falls, dizziness, or confusion. Medication box Problem:Home Medication Management Goal:Medication management goal Completed Pt completes own med box Skilled assessment medications Problem:Home Medication Management Goal:Medication management goal Completed Skilled observation and assessment of patient's response to new medications, change in treatment plan. Pt educated on Tramadol, Miralax, states understanding. Teach medication management Problem:Home Medication Management Goal:Medication management goal Completed Pt verbalized understanding. Instruct patient/caregiver on disease process, symptom management and self care as related to hypertension. Problem:Learning/[place]a sa[place] Needs - HTN Goal:HTN education goal Completed Pt instructed to report any dizziness from getting up from laying and sitting postions. Pt to instructed to get up slowly. Incision site care Problem:Learning/[place]a sa[place] Needs - Joint Replacement Goal:Post-op complication goal Completed Pt and state understanding. Instruct diet Problem:Learning/[place]a [place] Needs - Joint Replacement Goal:Post-op complication goal Completed Pt and state understanding. Instruct on constipation prevention Problem:Learning/[place]a [place] Needs - Joint Replacement Goal:Post-op complication goal Completed Pt instructed to use Miralax, increase fiber in diet (raw fruits and veggies), and increase water intake. Pt agreeable. Instruct on management of immobility complications Problem:Learning/[place] Needs - Joint Replacement Goal:Post-op complication goal Completed Pt states understanding. Instruct on the prevention of deep vein thrombosis Problem:Learning/[place] Needs - Joint Replacement Goal:Post-op complication goal Completed Pt and state understanding. Teach Problem:Learning/Tea sa[place] Needs - Joint Replacement Goal:Post-op complication goal Completed Pt instructed to report fever, redness, increase swelling, or drainage. Instruct on pain management techniques Problem:Pain Management Goal:Pain management goal Completed Pt states understanding. Pt was place into recyling chair, legs elevated on pillows, and ice placed on hip. Instruct prevention of pressure ulcers Problem:Prevention of Skin Breakdown - Pressure Ulcer Goal:HH/HSPC Goal Completed pt states understanding. Instruct on fall prevention Problem:Risk of Falls Goal:Balance/Fall risk goal Completed Pt and state understanding. Obtain pulse oximetry Problem:Skilled Assessment Goal:Rehospitalizati on joint replacement goal Completed SN/EMAIL ADMINISTRATOR obtain vital signs Problem:Skilled Assessment Goal:Rehospitalizati on joint replacement goal Completed Teaching - disease process Problem:Skilled Assessment Goal:Rehospitalizati on joint replacement goal Completed Pt and taught about pain, Dr. Burns use of local anesthetic to RTH area during surgery and wearing off in 48-72 hours. Pt to keep up on pain medications, ice, and elevation. Skilled observation and assessment general assessment Problem:Skilled Assessment Goal:Rehospitalizati on joint replacement goal Completed Actions Home Health Visit - Actions and Narratives (unrecognized section and content) Cp assessment completed. VS wnl. Meds reviewed. Pt denied med changes. Pt denied pain this visit. Dressing intact to right hip x2. Scant drainage to upper dressing and small amt drainage to lower dressing. Fading bruises and some edema remains to that hip. Pt cont with ice/elevation. Pt denied issues with constipation. Pt educated on diet, fall safety, edema management, and DVT prevention this visit. Pt stated understanding of all education. NOMNC given and explained to pt for upcoming d/c next week. Pt is fine with a visit on Sat. Pt to see Rishi on Sat at 3:00pm. Actions Cp assessment completed. VS wnl. Meds reviewed. Pt denied med changes. Pt rated pain to right hip and leg 4/10 this visit. Dressings intact to right hip. Sm amt drainage shadowing noted on both dressings. No s/sx infection noted. Hip area cont with edema and brusiing. Pt cont to ice/elevate. Some edema noted to RLE as well. Pt denied any issues with BM's. Pt and spouse educated on diet, hydration, pain and edema management, DVT prevention, wound drainage and when to notify nurse, and fall safety this visit. Pt and spouse stated understanding of same. Pt is fine with a visit on Sat. <item><item><item> Privacy Markings (unrecogniz ed section and content) Section Author: Deanna Grier PROHIBITION ON REDISCLOSURE OF CONFIDENTIAL INFORMATION This notice accompanies a disclosure of information concerning a client made to you with the consent of such client. Section Author: Deanna Grier PROHIBITION ON REDISCLOSURE OF CONFIDENTIAL INFORMATION This notice accompanies a disclosure of information concerning a client made to you with the consent of such client. Section Author: Deanna Grier PROHIBITION ON REDISCLOSURE OF CONFIDENTIAL INFORMATION This notice accompanies a disclosure of information concerning a client made to you with the consent of such client. Care Teams (unrecognized sec tion and content) Statistics Professor Relationship Specialty Start Date End Date Anjana Pride MD [address] [place] [id number] PCP - General Family Medicine 06/26/18 Rob Tovar MD [address] [place] [id number] Referring Physician Urologic Surgery 06/26/18 Feryn Cole MD [address] [place] [id number] Consulting Physician General Surgery 07/16/18 Sharan Padilla MD [address] [place] [address] Radiology 07/16/18 Driss Olivia MD [address] [facility] [place] [address] Consulting Physician Anesthesiology 07/16/18 Derek Burns MD [address] [place] [address] Consulting Physician Orthopedic Surgery 07/09/19 Statistics Professor Relationship Specialty Start Date End Date Anjana Pride MD [address] [id number] PCP - General 05/26/19 Anjana Pride MD [address] [id number] [facility] - [facility] Attributed Provider 09/23/21 Statistics Professor Relationship Specialty Start Date End Date Anjana Pride MD [address] [id number] PCP - General 05/26/19 Anjana Pride MD [address] [id number] [facility]CP - [facility] Attributed Provider 09/23/21 Statistics Professor Relationship Specialty Start Date End Date Anjana Pride MD [address] [id number] PCP - General Family Medicine 06/26/18 Rob Tovar MD [address] [place] [address] Referring Physician Urologic Surgery 06/26/18 Ferny Cole MD [address] [address] Consulting Physician General Surgery 07/16/18 Sharan Padilla MD [address] [place] [address] Radiology 07/16/18 Driss Olivia MD [address] [place] [address] Consulting Physician Anesthesiology 07/16/18 Derek Burns MD [address] [place] [address] Consulting Physician Orthopedic Surgery 07/09/19 Statistics Professor Relationship Specialty Start Date End Date Anjana Pride MD [address] [id number] PCP - General 05/26/19 Anjana Pride MD [address] [place] [address] PCP - [facility] Attributed Provider 09/23/21 Statistics Professor Relationship Specialty Start Date End Date Anjana Pride MD [address] [place] [address] PCP - General 05/26/19 Anjana Pride MD [address] [place] [address] PCP - [facility] Attributed Provider 09/23/21 FOR RECORDS PERTAINING TO PATIENTS WHO ARE OR HAVE BEEN ENROLLED IN A CHEMICAL DEPENDENCY/SUBSTANCEABUSE PROGRAM, SOME INFORMATION MAY BE OMITTED. This clinical summary was aggregated from multiple sources. Caution should be exercised in using it in the provision of clinical care. This summary normalizes information from multiple sources, and as a consequence, information in this document may materially change the coding, format and clinical context of patient data. In addition, data may be omitted in some cases. CLINICAL DECISIONS SHOULD BE BASED ON THE PRIMARY CLINICAL RECORDS. [facility] [employer] [facility] provides no warranty or guarantee of the accuracy or completeness of information in this document.
== END | disposition home or self-care (01) ==
LOC: MTLAB 16:38
PROVIDERS: PCP Family Medicine; Referring Provider Internal Medicine Rheumatology; Visit Provider Internal Medicine Rheumatology
DX: M06.4 Inflammatory polyarthropathy (principal); M19.041 Primary osteoarthritis, right hand; M17.0 Bilateral primary osteoarthritis of knee; M65.332 Trigger finger, left middle finger; Z79.899 Other long term (current) drug therapy
CPT/HCPCS: 36415; 80053; 85025

== ENCOUNTER → 2024-01-22 | Outpatient (CLI) | payer MEDICARE, BC, SELFPAY ==
[2024-01-22 17:48] LABS: Absolute Lymphocyte Count 1.77 X10^3/uL (0.83-4.51); Absolute Neutrophil Count 4.3 X10^3/uL (2.0-7.7); Basophil# 0.03 X10^3/uL; Basophil% 0.4 % (0-1); Eosinophil# 0.15 X10^3/uL; Eosinophils% 2.2 % (0-5); Hematocrit 38.3 % (37-47); Hemoglobin 12.2 g/dL (12.0-15.0); Lymphocyte # 1.77 X10^3/ul (0.83-4.51); Lymphocyte % 25.7 % (19-41); Mean Corp Hgb Conc 31.9 g/dL (32-36); Mean Corpuscular Hgb 29.5 pg (27.0-32.0); Mean Corpuscular Volume 92.5 fL (81-99); Mean Platelet Vol. 10.8 fl (6.2-12.0); Monocyte# 0.61 X10^3/uL; Monocyte% 8.9 % (0-10); NRBC Flagged by Analyzer 0 % (0-5); Neutrophil % 62.4 % (47-70); Platelet Count 226 K/mm3 (150-450); RBC Distribution Width CV 13.7 % (11.6-14.6); RBC Distribution Width SD 46.4 fl (35.1-43.9); Red Blood Count 4.14 M/mm3 (4.2-5.4); White Blood Count 6.9 K/mm3 (4.4-11.0)
[2024-01-22 18:17] LABS: ALB/GLOB Ratio 1.1 RATIO (0.9-2.4); AST(SGOT) 33 U/L (15-37); Alanine Aminotransfer ALT/SGPT 43 U/L (13-56); Albumin, Serum 3.6 g/dL (3.2-5.0); Alkaline Phosphatase 117 U/L (45-117); Anion Gap 7 (5-15); BUN 29 mg/dL (7-18); BUN/Creat Ratio 35.2 RATIO (10-20); Calcium,Total 9.8 mg/dL (8.5-10.1); Chloride 108 mmol/L (98-107); Creatinine, Serum 0.82 mg/dL (0.55-1.02); EST Glomerular Filtration Rate 72 mL/min (>60); Est Glom Filt Rate - Afr Amer 87 mL/min (>60); Globulin 3.4 g/dL (2.2-4.2); Glucose 84 mg/dL (74-106); Potassium 3.9 mmol/L (3.5-5.1); Sodium Level 141 mmol/L (136-145)
== END | disposition home or self-care (01) ==
LOC: MTLAB 16:04
PROVIDERS: PCP Family Medicine; Referring Provider Internal Medicine Rheumatology; Visit Provider Internal Medicine Rheumatology
DX: M06.4 Inflammatory polyarthropathy (principal); M19.041 Primary osteoarthritis, right hand; M17.0 Bilateral primary osteoarthritis of knee; Z79.899 Other long term (current) drug therapy
CPT/HCPCS: 36415; 80053; 85025

== ENCOUNTER → 2024-03-20 | Outpatient (CLI) | payer MEDICARE, BC, SELFPAY ==
[2024-03-20 17:34] LABS: Absolute Lymphocyte Count 1.33 X10^3/uL (0.83-4.51); Absolute Neutrophil Count 4.3 X10^3/uL (2.0-7.7); Basophil# 0.03 X10^3/uL; Basophil% 0.4 % (0-1); Eosinophil# 0.23 X10^3/uL; Eosinophils% 3.4 % (0-5); Hematocrit 36.1 % (37-47); Hemoglobin 11.8 g/dL (12.0-15.0); Lymphocyte # 1.33 X10^3/ul (0.83-4.51); Lymphocyte % 19.5 % (19-41); Mean Corp Hgb Conc 32.7 g/dL (32-36); Mean Corpuscular Hgb 30.3 pg (27.0-32.0); Mean Corpuscular Volume 92.6 fL (81-99); Mean Platelet Vol. 10.5 fl (6.2-12.0); Monocyte# 0.87 X10^3/uL; Monocyte% 12.7 % (0-10); NRBC Flagged by Analyzer 0 % (0-5); Neutrophil # 4.33 X10^3/uL (2.7-7.7); Neutrophil % 63.4 % (47-70); Platelet Count 219 K/mm3 (150-450); RBC Distribution Width CV 15.2 % (11.6-14.6); RBC Distribution Width SD 50.7 fl (35.1-43.9); White Blood Count 6.8 K/mm3 (4.4-11.0)
[2024-03-20 18:10] LABS: ALB/GLOB Ratio 1.1 RATIO (0.9-2.4); AST(SGOT) 30 U/L (15-37); Alanine Aminotransfer ALT/SGPT 32 U/L (13-56); Albumin, Serum 3.4 g/dL (3.2-5.0); Alkaline Phosphatase 106 U/L (45-117); Anion Gap 8 (5-15); BUN 32 mg/dL (7-18); BUN/Creat Ratio 32.4 RATIO (10-20); Calcium,Total 9.4 mg/dL (8.5-10.1); Chloride 108 mmol/L (98-107); Creatinine, Serum 0.99 mg/dL (0.55-1.02); EST Glomerular Filtration Rate 58 mL/min (>60); Est Glom Filt Rate - Afr Amer 70 mL/min (>60); Globulin 3.2 g/dL (2.2-4.2); Glucose 93 mg/dL (74-106); Protein, Total 6.6 g/dL (6.4-8.2); Sodium Level 141 mmol/L (136-145)
== END | disposition home or self-care (01) ==
LOC: MTLAB 15:20
PROVIDERS: PCP Family Medicine; Visit Provider Internal Medicine Rheumatology
DX: M06.4 Inflammatory polyarthropathy (principal); Z79.899 Other long term (current) drug therapy
CPT/HCPCS: 36415; 80053; 85025

== ENCOUNTER → 2024-08-04 | Outpatient (CLI) | payer MEDICARE, BC, SELFPAY ==
--- NOTE | 2024-08-04 15:40 | RAD_ITS ---
INDICATION: LIMB LENGTH DIFFERENCE EXAMINATION/TECHNIQUE: X-RAY - RIGHT XR Foot Min 3 Views 3 VIEWS COMPARISON: FINDINGS: SOFT TISSUES: No soft tissue swelling or gas. No radiopaque foreign body. BONES/JOINTS: No acute fracture or subluxation.. Normal alignment. Preservation of the joint space.. No sclerotic or destructive changes observed. RAD/Foot min 3 Views IMPRESSION: No acute bony injury. Electronically Signed: Conor Patrick DO at 11:49 EST ,
--- NOTE | 2024-08-04 15:47 | RAD_ITS ---
EXAM: XR <TEMPLATE> CLINICAL INDICATION: LEG LENGTH DIFFERENCE/FLAT FOOT TECHNIQUE: X-ray bone length studies scanograms. COMPARISON: No relevant prior studies available. FINDINGS: There are bilateral hip prostheses. The superior aspect of the right acetabular implant is at approximately 82 cm and the superior aspect of the left acetabular implant is at 81 cm. The knee and ankle joints are at similar heights. The left ischial tuberosity is approximately 1.2 cm below the right ischial tuberosity. RAD/Bone Length IMPRESSION: Mild elevation of the right hip prosthesis and ischial tuberosity compared to left. Electronically Signed: Ricardo Ramsey MD at 17:13 EST ,
--- NOTE | 2024-08-04 16:00 | RAD_ITS ---
INDICATION: LIMB LENGTH DIFFERENCE EXAMINATION/TECHNIQUE: X-RAY - LEFT XR Foot Min 3 Views 3 VIEWS COMPARISON: FINDINGS: SOFT TISSUES: No soft tissue swelling or gas. No radiopaque foreign body. BONES/JOINTS: No acute fracture or subluxation.. Normal alignment. Preservation of the joint space.. No sclerotic or destructive changes observed. RAD/Foot min 3 Views IMPRESSION: No acute bony pathology. Electronically Signed: Conor Patrick DO at 11:56 EST ,
== END | disposition home or self-care (01) ==
PROVIDERS: PCP Family Medicine; Referring Provider Podiatrist; Visit Provider Podiatrist
DX: M21.761 Unequal limb length (acquired), right tibia (principal); M21.41 Flat foot [pes planus] (acquired), right foot; M21.42 Flat foot [pes planus] (acquired), left foot
CPT/HCPCS: 73630; 77073